=== PATIENT | female | born 1980 | race Caucasian/White ===

== ENCOUNTER 2017-01-14 09:52 | Emergency (ER) | payer OTHER ==
[~2017-01-14] VITALS: Ht 162.6 cm; Wt 66.5 kg
[~2017-01-14 09:52] MED LIST: IBUP-103 PO; PSEU120T21 PO
[2017-01-14 09:54] VITALS: TEMP 37.1; Ht 162.6 cm; Wt 66.5 kg
[2017-01-14] MEDS ORDERED: CYCL10TA6 PO (10:53)
--- NOTE | 2017-01-14 10:53 | EMERGENCY ROOM VISIT NOTE ---
ED Visit Note First contact with patient: 10:01 CHIEF COMPLAINT: Low back pain 2-3 days HISTORY OF PRESENT ILLNESS: Patient is a 36-year-old white female who presents emergency department for evaluation of progressively worsening low back pain 2- 3 days. She has been sleeping on an air mattress at a friend's house, she states that the air mattress deflates overnight and the other evening she ended up sleeping on the floor. She states that when she woke up her back was stiff and sore and it has progressively worsened over the last 2-3 days. She notes pain across her entire low back. It wraps around to her hips slightly. It is worse with walking and sitting upright. She has tried stretching, ibuprofen and massage last evening, which did help. There is no radiation of the pain into the buttocks or the legs. No numbness, tickling or weakness. No bowel or bladder incontinence. She rates her pain a 7/10. She does not have a prior history of back problems. REVIEW OF SYSTEMS: Review of systems as per HPI. All other systems reviewed were negative. At least 6 systems reviewed. PMH: Electronic medical records are reviewed and summarized as above/below. See Problem List. SOCIAL HISTORY: Patient lives at home. Smoker. PHYSICAL EXAM: Vital Signs: Reviewed Nurse's notes. MENTAL STATUS: Well-appearing 36-year-old white female who is awake and alert and in no acute distress. There is slight discomfort with position changes. CARDIOVASCULAR: Regular rate and rhythm, with normal S1 and S2, no murmur or gallop or rub is heard. No carotid bruits auscultated. No JVD. Peripheral pulses easily palpable. RESPIRATORY: Breath sounds equal and clear to auscultation without wheezes, rales, or rhonchi heard. Full and equal chest expansion without accessory muscle use or retractions. ABDOMEN: Bowel sounds are present. Abdomen is soft, nontender and nondistended. INTEGUMENTARY: No lesions or rash, normal skin turgor. LYMPH: No lymphadenopathy. SPINE: Examination of the patient's back does not demonstrate any ecchymosis, abrasions or outward signs of trauma. No erythema, increased warmth or induration. Patient has slight midline discomfort to palpation over the low lumbar spine, increased pain in the paraspinous musculature. There is no pain over the SI joint or the sciatic notch. She has discomfort with flexion, no pain with rotation and lateral bending. EXTREMITIES: Leg lengths are symmetrical. Negative logroll bilaterally. Normal strength including dorsi-flexion and plantar flexion of the great toes and ankles and flexion and extension of the knees and flexion of the hips. Negative bilateral straight leg raise testing. Lower extremity DTRs are equal and symmetrical bilaterally. Distal pulses are easily palpable. Sensation light touch is intact over the lower extremities bilaterally. EMERGENCY DEPARTMENT COURSE: The patient was seen and assessed as above. Old records are reviewed. She presents emergency department with localized low back pain. She does not provide a history of trauma to suspect fracture and therefore radiographs are not felt to be indicated. Continued conservative care measures were discussed. She was advised to continue the ibuprofen, heat, massage and was given a prescription for Flexeril. MEDICAL DECISION MAKING: I do not suspect acute compression syndrome, cauda equina, diskitis, epidural abscess, hematoma or neurovascular compromise. Problem List Medical Problems: (1) Acetaminophen overdose Permanent Comment: 2001 Status: Resolved (2) Depression Status: Chronic (3) Drug overdose Status: Resolved (4) Pain of right heel Status: Resolved (5) s/p Status: Resolved (6) Tobacco user Status: Chronic Current/Historical Medications Scheduled PRN Cyclobenzaprine Hcl (Flexeril), 10 MG PO TID PRN for Muscle Spasms Allergies Coded Allergies: No Known Allergies (Unverified , 02/15/14) Vital Signs Date Time Temp Pulse Resp B/P Pulse Ox O2 Delivery O2 Flow Rate FiO2 01/14/17 11:10 62 16 123/75 97 01/14/17 09:54 37.1 68 16 106/68 97 Room Air Departure Information Impression Primary Impression: Low back pain Prescriptions Cyclobenzaprine Hcl (FLEXERIL) 10 Mg Tab 10 MG PO TID Y for Muscle Spasms, #20 TAB Prov: Magdalena John PA 01/14/17 Referrals No Doctor, Assigned (PCP) Patient Instructions My [facility] Additional Instructions Cyclobenzaprine (Flexeril) 10 mg: Take 1 pills 3 times daily as needed for muscle spasms.. Avoid alcohol, operating machinery or dangerous equipment, working on ladders or roofs, DRIVING, or situations where being under the influence may be dangerous. Ibuprofen(Motrin, Advil) may be used for fever or pain. Use 600mg every six hours as needed. Take with food. Avoid using more than 2400mg in a 24 hour period. Do not use 2400mg per day for more than three consecutive days without physician direction. Prolonged inappropriate use can lead to stomach upset or ulcers. This medication can be taken if you need to drive, work, or perform activities which may be dangerous when taking narcotic pain medication. (AND/OR) Acetaminophen(Tylenol) may be used for fever or pain. Use 1000mg every six hours as needed. Avoid using more than 3000mg in a 24 hour period. This medication can be taken if you need to drive, work, or perform activities which may be dangerous when taking narcotic pain medication. Rest and avoid heavy lifting until your symptoms resolve and then gradually return to full activity. A good rule of thumb is if it hurts your back to perform a certain activity, then it should be avoided until you are healthy again. A heating pad, warm compresses, or a hot shower may help with tight muscles and can be done several times a day as needed. Gentle stretching and range of motion exercises to help reduce stiffness and spasm. Continue current medications. Return to the ER immediately for any numbness, tingling, severe pain, loss of control of your bowels or bladder, inability to walk, or as needed. Follow up with your primary care physician within 3-5 days for a recheck of your current condition.
[2017-01-14 11:10] VITALS: BP 123/75; PULSE 62; O2SAT 97
== END 2017-01-14 11:11 | disposition home or self-care (01) ==
LOC: C.EDB 09:53 → C.EDC 11:11
DX: M54.5 Low back pain (principal); F17.200 Nicotine dependence, unspecified, uncomplicated

== ENCOUNTER → 2017-03-08 | Outpatient (CLI) | payer OTHER ==
[~2017-03-08] MED LIST changes: +CEPH500C PO; +DXY100 PO; +ESCI1TAB6 PO; -IBUP-103 PO; +METR-163 PO; +ONDA4TAB10 SL; +OXYC-57 PO; +OXYC1TAB3 PO; -PSEU120T21 PO; +TAMS0.4C38 PO
[2017-03-08 13:08] LABS: BASO % 0.5 %; BASO ABS # 0.04 K/uL (0-0.2); COMPLETE YES; EOS % 1.5 %; HEMATOCRIT 42.8 % (37-47); IG% 0.1 %; LYMPH % 25.6 %; MEAN CELL VOLUME 100.5 fL (80-100); MEAN CORPUSCULAR HEMOGLOBIN 32.9 pg (25-34); MEAN CORPUSCULAR HGB CONC 32.7 g/dl (32-36); MONO % 6.9 %; NEUT % 65.4 %; PLATELET COUNT 315 K/uL (130-400); RED BLOOD COUNT 4.26 M/uL (4.2-5.4); WHITE BLOOD COUNT 7.82 K/uL (4.8-10.8)
[2017-03-08 13:27] LABS: BLOOD UREA NITROGEN 13 mg/dl (7-18); BUN/CREATININE RATIO 20.5 (10-20); CARBON DIOXIDE 29 mmol/L (21-32); CHLORIDE 108 mmol/L (98-107); CREATININE 0.63 mg/dl (0.60-1.20); GLUCOSE 112 mg/dl (70-99); POTASSIUM 3.5 mmol/L (3.5-5.1); SODIUM 140 mmol/L (136-145)
[2017-03-08 13:30] LABS: ALKALINE PHOSPHATASE 76 U/L (45-117); ALT/SGPT 21 U/L (12-78); AST/SGOT 13 U/L (15-37)
[2017-03-08 13:31] LABS: BENZODIAZEPINE, URINE NEG (NEG); COCAINE,URINE NEG (NEG); PHENCYCLIDINE, URINE NEG (NEG)
[2017-03-08 13:49] LABS: CALCIUM 8.5 mg/dl (8.5-10.1)
== END | disposition home or self-care (01) ==
LOC: C.CPL 12:27
PROVIDERS: ATTEND Psychiatry & Neurology Psychiatry
DX: F31.9 Bipolar disorder, unspecified (principal)

== ENCOUNTER → 2017-04-21 | Outpatient (CLI) | payer OTHER ==
[2017-04-21 15:47] LABS: BASO % 0.6 %; BASO ABS # 0.04 K/uL (0-0.2); COMPLETE YES; EOS % 1.6 %; HEMATOCRIT 42.8 % (37-47); IG% 0.1 %; LYMPH % 32.7 %; MEAN CELL VOLUME 99.3 fL (80-100); MEAN CORPUSCULAR HEMOGLOBIN 30.6 pg (25-34); MEAN CORPUSCULAR HGB CONC 30.8 g/dl (32-36); MEAN PLATELET VOLUME 9.1 fL (7.4-10.4); MONO % 7.4 %; NEUT % 57.6 %; PLATELET COUNT 365 K/uL (130-400); RED BLOOD COUNT 4.31 M/uL (4.2-5.4); WHITE BLOOD COUNT 7.03 K/uL (4.8-10.8)
[2017-04-21 16:39] LABS: CHLORIDE 108 mmol/L (98-107); POTASSIUM 3.7 mmol/L (3.5-5.1); SODIUM 140 mmol/L (136-145)
[2017-04-21 16:49] LABS: CALCIUM 8.6 mg/dl (8.5-10.1); CREATININE 0.83 mg/dl (0.60-1.20); GLUCOSE 158 mg/dl (70-99)
[2017-04-21 16:50] LABS: AST/SGOT 13 U/L (15-37)
[2017-04-21 17:02] LABS: BENZODIAZEPINE, URINE NEG (NEG); COCAINE,URINE NEG (NEG); PHENCYCLIDINE, URINE POS (NEG)
[2017-04-21 17:31] LABS: ALB/GLOB RATIO 1.1 (0.9-2); BLOOD UREA NITROGEN 12 mg/dl (7-18); BUN/CREATININE RATIO 14.2 (10-20); CARBON DIOXIDE 27 mmol/L (21-32)
[2017-04-21 17:39] LABS: ALKALINE PHOSPHATASE 74 U/L (45-117); ALT/SGPT 22 U/L (12-78)
[2017-04-26 10:33] LABS: COD UR NEGATIVE NG/ML (CUTOFF=50); HYDROCOD UR NEGATIVE NG/ML (CUTOFF=50); HYDROMOR UR NEGATIVE NG/ML (CUTOFF=50); MORPHINE UR NEGATIVE NG/ML (CUTOFF=50); NORHYDROCODONE CONF UR NEGATIVE NG/ML (CUTOFF=50); OXYMORPH UR NEGATIVE NG/ML (CUTOFF=50); PHENCYCLIDINE GC/MS NEGATIVE NG/ML (CUTOFF=25)
== END | disposition home or self-care (01) ==
LOC: C.LAB 14:12
PROVIDERS: ATTEND Psychiatry & Neurology Psychiatry
DX: F32.9 Major depressive disorder, single episode, unspecified (principal)

== ENCOUNTER 2017-05-23 13:06 | Emergency (ER) | payer OTHER ==
[~2017-05-23] VITALS: Ht 162.6 cm; Wt 67.0 kg
[2017-05-23 13:07] VITALS: BP 113/73; PULSE 91; TEMP 36.7; O2SAT 99; Ht 162.6 cm; Wt 67.0 kg
[2017-05-23] MEDS ORDERED: ESCI1TAB6 PO (13:13)
[2017-05-23] MEDS ORDERED: CEPH500C PO (13:22)
--- NOTE | 2017-05-23 13:25 | EMERGENCY ROOM VISIT NOTE ---
ED Visit Note First contact with patient: 13:10 CHIEF COMPLAINT: Skin rash HISTORY OF PRESENT ILLNESS: This 36-year-old female patient presents to the emergency department and states they have had swelling and redness and a rash 1 -1/2 weeks. The patient states she was exposed to poison karlee approximately one half weeks ago. She states the rash seems to be worsening over the past 2-3 days. She reports initial itchiness, which was successfully treated with calamine lotion and another OTC poison karlee cream. The patient states now the itchiness has improved, however she is experiencing increasing pain behind her right knee and on her right buttock where the lesions were. The patient states she had been scratching at these lesions, and also feels that she may have had bug bites in the same areas. The patient reports increased redness and warmth, and some minimal drainage. No fever and no URI symptoms. No shortness of breath. No involvement of the mouth, ears, nose, or eyes. REVIEW OF SYSTEMS: A 6 system review of systems was completed with positives and pertinent negatives listed in the HPI. ALLERGIES: None MEDICATIONS: Lexapro, Wellbutrin, trazodone PMH: Anxiety, depression, bipolar disorder SOCIAL HISTORY: The patient lives locally with family. She denies drug, alcohol , tobacco use. PHYSICAL EXAM: Vital Signs: See nurses' notes, vital signs stable. GENERAL: This is a 36-year-old female, in no acute distress, well developed, well nourished. SKIN: There are several linear patches of erythematous lesions on the posterior knees and right buttock, no vesicles at this time. Lesions are red and warm, and are draining some purulent fluid. This Is beginning to form over lesions. The lips, throat, nose, ears, and eyeballs are not involved. No signs of infection. There is no respiratory distress or cough. ED COURSE: She was seen and evaluated as above. I do feel that the lesions are starting to get infected due to the patient's scratching. I do recommend an antibiotic at this time due to her symptoms and examination. DIFFERENTIAL DIAGNOSIS: Cellulitis, Poison Karlee, Poison [place], dermatitis, and others. DIAGNOSIS: Rheus dermatitis DISCHARGE INSTRUCTIONS & TREATMENT: You were prescribed Keflex to be taken 4 times daily. This is an antibiotic. All antibiotics have the potential to cause diarrhea. Stop this medication and contact a medical provider if you were to develop any significant adverse side effects including: wheezing, shortness of breath, passing out, vomiting, or a diffuse rash. Always take antibiotics as directed and COMPLETE the ENTIRE course regardless of the improvement of your symptoms. You may continue to use OTC calamine lotion and poison karlee cream. You may want to consider OTC hydrocortisone cream for itchiness. Ibuprofen(Motrin, Advil) may be used for fever or pain. Use 600mg every six hours as needed. Take with food. Avoid using more than 2400mg in a 24 hour period. Do not use 2400mg per day for more than three consecutive days without physician direction. Prolonged inappropriate use can lead to stomach upset or ulcers. (AND/OR) Acetaminophen(Tylenol) may be used for fever or pain. Use 1000mg every six to eight hours as needed. Avoid using more than 3000mg in a 24 hour period. Please follow-up with your primary care provider in 2-3 days for recheck of the wounds. Please return to the emergency department for worsening rash, itchiness, purulent drainage, fever, chills, nausea, vomiting, body aches, or other concerning symptoms. Problem List Medical Problems: (1) Acetaminophen overdose Permanent Comment: 2002 Status: Resolved (2) Depression Status: Chronic (3) Drug overdose Status: Resolved (4) Pain of right heel Status: Resolved (5) s/p Status: Resolved (6) Tobacco user Status: Chronic Current/Historical Medications Scheduled Cephalexin Monohydrate (Keflex), 500 MG PO QID Escitalopram Oxalate (Lexapro), Unknown Dose PO DAILY Allergies Coded Allergies: No Known Allergies (Unverified , 02/15/14) Vital Signs Date Time Temp Pulse Resp B/P (MAP) Pulse Ox O2 Delivery O2 Flow Rate FiO2 05/23/17 13:07 36.7 91 16 113/73 99 Departure Information Impression Primary Impression: Poison karlee dermatitis Additional Impression: Cellulitis Dispostion Home / Self-Care Condition GOOD Prescriptions Cephalexin Monohydrate (Keflex) 500 Mg Cap 500 MG PO QID for 7 Days, #28 CAP Prov: Mena Garsia PA-C 05/23/17 Referrals Gauri Manriquez M.D. (PCP) Patient Instructions ED Dermatitis Poison Karlee, ED Infec Skin Cellulitis, [facility] Additional Instructions You were prescribed Keflex to be taken 4 times daily. This is an antibiotic. All antibiotics have the potential to cause diarrhea. Stop this medication and contact a medical provider if you were to develop any significant adverse side effects including: wheezing, shortness of breath, passing out, vomiting, or a diffuse rash. Always take antibiotics as directed and COMPLETE the ENTIRE course regardless of the improvement of your symptoms. You may continue to use OTC calamine lotion and poison karlee cream. You may want to consider OTC hydrocortisone cream for itchiness. Ibuprofen(Motrin, Advil) may be used for fever or pain. Use 600mg every six hours as needed. Take with food. Avoid using more than 2400mg in a 24 hour period. Do not use 2400mg per day for more than three consecutive days without physician direction. Prolonged inappropriate use can lead to stomach upset or ulcers. (AND/OR) Acetaminophen(Tylenol) may be used for fever or pain. Use 1000mg every six to eight hours as needed. Avoid using more than 3000mg in a 24 hour period. Please follow-up with your primary care provider in 2-3 days for recheck of the wounds. Please return to the emergency department for worsening rash, itchiness, purulent drainage, fever, chills, nausea, vomiting, body aches, or other concerning symptoms. Problem Qualifiers Additional Impression: Cellulitis Site of cellulitis: extremity Site of cellulitis of extremity: lower extremity Laterality: right Qualified Codes: L03.115 - Cellulitis of right lower limb
== END 2017-05-23 13:32 | disposition home or self-care (01) ==
LOC: C.EDB 13:07 → C.EDD 13:32
DX: L23.7 Allergic contact dermatitis due to plants, except food (principal); L03.115 Cellulitis of right lower limb; F41.9 Anxiety disorder, unspecified; F32.9 Major depressive disorder, single episode, unspecified; F31.9 Bipolar disorder, unspecified

== ENCOUNTER 2017-06-07 11:45 | Emergency (ER) | payer OTHER ==
[~2017-06-07] VITALS: Ht 162.6 cm; Wt 66.2 kg
[~2017-06-07 11:45] MED LIST changes: -CEPH500C PO; -DXY100 PO; -METR-163 PO; -ONDA4TAB10 SL; -OXYC-57 PO; -OXYC1TAB3 PO; -TAMS0.4C38 PO
[2017-06-07 11:56] VITALS: TEMP 36.8; Ht 162.6 cm; Wt 66.2 kg
[2017-06-07] MEDS ORDERED: IBUPROFEN 800 MG TAB PO STA (12:14)
[2017-06-07] MEDS ORDERED: ACETAMINOPHEN 500 MG TAB PO STA (12:14)
--- NOTE | 2017-06-07 12:25 | EMERGENCY ROOM VISIT NOTE ---
History Report prepared by Hussain: Jessica Mars Under the Supervision of: Dr. Neo Nuñez M.D. First contact with patient: 12:00 Chief Complaint: OTHER COMPLAINT Stated Complaint: MENSTRUAL CRAMPS - POISON ADRIAN - COUGHING - ACHES History of Present Illness The patient is a 36 year old white female who presents to the Emergency Room with complaints of persistent lower abdominal cramping that began prior to arrival. She rates her pain as a 7/10 in severity describing her pain as an aching. The patient reports that she has a Mirena ring. She states that she has had green vaginal discharge and vaginal bleeding. The patient denies any active medical problems or change in sexual partners. She denies being on any daily medications. The patient reports a history of a section. She states that she is a smoker and an occasional drinker. The patient states her pain wraps around to her back. She denies any history of kidney stones. The patient reports normal bowel movements and urination. She additionally reports poison adrian to her bilateral legs that she took antibiotics for last week. Source of History: patient Onset: prior to arrival Position: abdomen (lower) Symptom Intensity: 7/10 Quality: ache, cramping Timing: other (persistent) Note: Associated Symptoms: green vaginal discharge. Review of Systems See HPI for pertinent positives and negatives. A total of ten systems were reviewed and were otherwise negative. Past Medical & Surgical Medical Problems: (1) Acetaminophen overdose (2) Depression (3) Drug overdose (4) Pain of right heel (5) s/p (6) Tobacco user Family History Diabetes mellitus FHx: cancer Heart disease Hypertension Social History Smoking Status: Current Every Day Smoker Alcohol Use: none, occasionally Drug Use: heroin Marital Status: single, in relationship Housing Status: lives alone Occupation Status: unemployed Current/Historical Medications Scheduled Doxycycline Hyclate (Doxycycline Hyclate), 1 TAB PO BID Metronidazole (Flagyl), 500 MG PO BID Ondasetron Odt (Zofran Odt), 4 MG SL Q6H Allergies Coded Allergies: No Known Allergies (Unverified , 02/15/14) Physical Exam Vital Signs Date Time Temp Pulse Resp B/P (MAP) Pulse Ox O2 Delivery O2 Flow Rate FiO2 06/07/17 14:08 87 16 122/80 98 06/07/17 12:27 86 06/07/17 11:56 36.8 83 18 122/81 94 Room Air Physical Exam GENERAL: Awake, alert, well-appearing, NAD HENT: Normocephalic, atraumatic. EYES: Normal conjunctiva. Sclera non-icteric. NECK: Supple. No nuchal rigidity. FROM. RESPIRATORY: CTAB, no rhonchi, wheezing, crackles CARDIAC: RRR, no MRG ABDOMEN: Soft, mild lower abdominal tenderness, no guarding or rebound, negative obturator sign and psoas, negative Franklin's, BS+ PELVIC: scant blood in the vaginal blood coming from the cervical os, os is closed, no irritation, scant thick white discharge, no CMT, no adnexal tenderness bilaterally. MSK: No chest wall TTP, no LE edema NEURO: GCS 15, CN 2-12 intact, moves all 4s on command SKIN: Several healing scars over the lower extremities that are different in size. Mild redness, no warmth. More consistent with healing wounds, no cellulitis or fluctuance. No jaundice noted. Medical Decision & Procedures Laboratory Results 06/07/17 12:20 Red Blood Count 4.08, Mean Corpuscular Volume 99.0, Mean Corpuscular Hemoglobin 32.4, Mean Corpuscular Hemoglobin Concent 32.7, Mean Platelet Volume 8.6, Neutrophils (%) (Auto) 68.3, Lymphocytes (%) (Auto) 23.7, Monocytes (%) (Auto) 5.3, Eosinophils (%) (Auto) 1.7, Basophils (%) (Auto) 0.6, Neutrophils # (Auto) 4.75, Lymphocytes # (Auto) 1.65, Monocytes # (Auto) 0.37, Eosinophils # (Auto) 0.12, Basophils # (Auto) 0.04 06/07/17 12:20 Test 06/07/17 12:19 06/07/17 12:20 06/07/17 12:55 Urine Color YELLOW Urine Appearance CLEAR (CLEAR) Urine pH 5.0 (4.5-7.5) Urine Specific [place] 1.019 (1.000-1.030) Urine Protein NEG (NEG) Urine Glucose (UA) NEG (NEG) Urine Ketones NEG (NEG) Urine Occult Blood 2+ (NEG) Urine Nitrite NEG (NEG) Urine Bilirubin NEG (NEG) Urine Urobilinogen NEG (NEG) Urine Leukocyte Esterase NEG (NEG) Urine WBC (Auto) 1-5 /hpf (0-5) Urine RBC (Auto) 10-30 /hpf (0-4) Urine Hyaline Casts (Auto) 1-5 /lpf (0-5) Urine Epithelial Cells (Auto) >30 /lpf (0-5) Urine Bacteria (Auto) NEG (NEG) Urine Test NEG (NEG) White Blood Count 6.96 K/uL (4.8-10.8) Red Blood Count 4.08 M/uL (4.2-5.4) Hemoglobin 13.2 g/dL (12.0-16.0) Hematocrit 40.4 % (37-47) Mean Corpuscular Volume 99.0 fL (80-100) Mean Corpuscular Hemoglobin 32.4 pg (25-34) Mean Corpuscular Hemoglobin Concent 32.7 g/dl (32-36) Platelet Count 335 K/uL (130-400) Mean Platelet Volume 8.6 fL (7.4-10.4) Neutrophils (%) (Auto) 68.3 % Lymphocytes (%) (Auto) 23.7 % Monocytes (%) (Auto) 5.3 % Eosinophils (%) (Auto) 1.7 % Basophils (%) (Auto) 0.6 % Neutrophils # (Auto) 4.75 K/uL (1.4-6.5) Lymphocytes # (Auto) 1.65 K/uL (1.2-3.4) Monocytes # (Auto) 0.37 K/uL (0.11-0.59) Eosinophils # (Auto) 0.12 K/uL (0-0.5) Basophils # (Auto) 0.04 K/uL (0-0.2) RDW Standard Deviation 49.8 fL (36.4-46.3) RDW Coefficient of Variation 13.9 % (11.5-14.5) Immature Granulocyte % (Auto) 0.4 % Immature Granulocyte # (Auto) 0.03 K/uL (0.00-0.02) Anion Gap -1.0 mmol/L (3-11) Est Creatinine Clear Calc Drug Dose 81.8 ml/min Estimated GFR () 96.6 Estimated GFR (Non- 83.4 BUN/Creatinine Ratio 12.8 (10-20) Calcium Level 8.7 mg/dl (8.5-10.1) Total Bilirubin 0.4 mg/dl (0.2-1) Aspartate Amino Transf (AST/SGOT) 14 U/L (15-37) Alanine Aminotransferase (ALT/SGPT) 22 U/L (12-78) Alkaline Phosphatase 66 U/L (45-117) Total Protein 7.0 gm/dl (6.4-8.2) Albumin 3.4 gm/dl (3.4-5.0) Globulin 3.6 gm/dl (2.5-4.0) Albumin/Globulin Ratio 0.9 (0.9-2) Laboratory results reviewed by me Medications Administered Medications (Trade) Dose Ordered Sig/Jonnathan Route Start Time Stop Time Status Last Admin Dose Admin Ibuprofen (Motrin Tab) 800 mg NOW STAT PO 06/07/17 12:14 06/07/17 12:15 DC 06/07/17 12:22 800 MG Acetaminophen (Tylenol Tab) 1,000 mg NOW STAT PO 06/07/17 12:14 06/07/17 12:16 DC 06/07/17 12:24 1,000 MG Ceftriaxone Sodium (Rocephin Im) 250 mg NOW ONCE IM 06/07/17 13:45 06/07/17 13:46 DC 06/07/17 14:07 250 MG Metronidazole (Flagyl Tab) 500 mg NOW STAT PO 06/07/17 13:36 06/07/17 13:38 DC 06/07/17 14:05 500 MG Doxycycline Hyclate (Vibramycin Cap) 100 mg NOW STAT PO 06/07/17 13:36 06/07/17 13:38 DC 06/07/17 14:05 100 MG Ondansetron HCl (Zofran Odt) 4 mg NOW STAT PO 06/07/17 13:36 06/07/17 13:38 DC 06/07/17 13:56 4 MG ED Course 1205: The patient was evaluated in room C1B. A complete history and physical exam was performed. 1254: I performed the pelvic exam at this time. See physical exam for further detail. 1410: I reevaluated the patient and she is doing well. I discussed the exam findings with her and I discussed the treatment plan. She verbalized complete understanding and agreement. She is ready to go home and follow up with erp business analyst. Medical Decision Triage Nursing notes reviewed. The patient's presentation and history were concerning for UTI, PID, infected Mirena, TOA. The patient is a 36 year old white female who presents to the Emergency Room with complaints of persistent lower abdominal cramping that began prior to arrival. Patient was evaluated blood work as well as a urine sample. Patient UA negative for infection was blindness consistent with being on her menstrual period. Patient's UPT was negative. Patient's H&H are normal. Upon pelvic exam patient did have scant blood coming from the os as well as very scant colored thick discharge. Patient did not have any CMT or adnexal tenderness. Patient's IUD was not placed recently however given the new symptom of discharge and she has not had before and she is to empirically treat for potential PID even though she doesn't have CMT tenderness or an elevated white count. This is more precautionary. The patient will follow up with her [facility] and given referral as well. Patient was also told that she is not supposed to drink on taking Flagyl. Patient was given strict follow-up, discharge, and return percussions. Patient agreed with plan of care was discharged home. Medication Reconcilliation Current Medication List: was personally reviewed by me Blood Pressure Screening Patient's blood pressure: Normal blood pressure Blood pressure disposition: Did not require urgent referral Impression Primary Impression: PID (pelvic inflammatory disease) Additional Impression: Vaginal bleeding Scribe Attestation The scribe's documentation has been prepared under my direction and personally reviewed by me in its entirety. I confirm that the note above accurately reflects all work, treatment, procedures, and medical decision making performed by me. Departure Information Dispostion Home / Self-Care Prescriptions Ondasetron Odt (ZOFRAN ODT) 4 Mg Tab 4 MG SL Q6H for Nausea, #6 TAB Prov: Neo Nuñez M.D. 06/07/17 Metronidazole (Flagyl) 500 Mg Tab 500 MG PO BID for 14 Days, #28 TAB Prov: Neo Nuñez M.D. 06/07/17 Doxycycline Hyclate (Doxycycline Hyclate) 100 Mg Cap 1 TAB PO BID for 14 Days, #28 TAB Prov: Neo Nuñez M.D. 06/07/17 Referrals No Doctor, Assigned (PCP) Forms HOME CARE DOCUMENTATION FORM, IMPORTANT VISIT INFORMATION, WORK / SCHOOL INSTRUCTIONS Patient Instructions ED PID, Metronidazole tablets or capsules, [facility], PID Tx Meds Additional Instructions Please return to the emergency department if you have worsening or recurrent symptoms not amenable to at-home treatment. Please call for a follow-up appointment with her primary care physician. Please take your medications as prescribed. If you have other concerns and/or complaints please feel free to also call your primary care physician's office or return the ED for further evaluation, management, and treatment. Please follow-up with your [facility]. Please also avoid taking alcohol while taking metronidazole. Problem Qualifiers
[2017-06-07 12:33] LABS: BASO % 0.6 %; BASO ABS # 0.04 K/uL (0-0.2); COMPLETE YES; EOS % 1.7 %; HEMATOCRIT 40.4 % (37-47); IG% 0.4 %; LYMPH % 23.7 %; LYMPH ABS # 1.65 K/uL (1.2-3.4); MEAN CORPUSCULAR HEMOGLOBIN 32.4 pg (25-34); MEAN CORPUSCULAR HGB CONC 32.7 g/dl (32-36); MEAN PLATELET VOLUME 8.6 fL (7.4-10.4); MONO % 5.3 %; NEUT % 68.3 %; PLATELET COUNT 335 K/uL (130-400); RED BLOOD COUNT 4.08 M/uL (4.2-5.4); WHITE BLOOD COUNT 6.96 K/uL (4.8-10.8)
[2017-06-07 12:53] LABS: URINE APPEARANCE CLEAR (CLEAR); URINE BILIRUBIN NEG (NEG); URINE COLOR YELLOW; URINE EPITHELIAL CELL AUTO >30 /lpf (0-5); URINE NITRITE NEG (NEG); URINE SPECIFIC GRAVITY 1.019 (1.000-1.030); UROBILINOGEN NEG (NEG)
[2017-06-07 12:57] LABS: BUN/CREATININE RATIO 12.8 (10-20); CALCIUM 8.7 mg/dl (8.5-10.1); CREATININE 0.89 mg/dl (0.60-1.20); POTASSIUM 3.8 mmol/L (3.5-5.1)
[2017-06-07 12:59] LABS: ALB/GLOB RATIO 0.9 (0.9-2)
[2017-06-07 13:04] LABS: MANUAL MICROSCOPIC REQUIRED? NO; REVIEW REQ? NO
[2017-06-07] MEDS ORDERED: ONDANSETRON 4MG OD TAB PO STA (13:36)
[2017-06-07] MEDS ORDERED: METRONIDAZOLE 250 MG TAB PO STA (13:36)
[2017-06-07] MEDS ORDERED: DOXYCYCLINE HYCLATE 100 MG CAP PO STA (13:36)
[2017-06-07] MEDS ORDERED: CEFTRIAXONE SOD 350MG/ML 1 GM VIAL IM ONE (13:45)
[2017-06-07 14:08] VITALS: BP 122/80; PULSE 87; O2SAT 98
[2017-06-07] MEDS ORDERED: DXY100 PO (14:20)
[2017-06-07] MEDS ORDERED: METR-163 PO (14:20)
[2017-06-07] MEDS ORDERED: ONDA4TAB10 SL (14:20)
[2017-06-10 01:22] LABS: CHLAMYDIA TRACH RNA*** NOT DETECTED (NOT DETECTED); GC (NEIS GONORRHOEAE)RNA** NOT DETECTED (NOT DETECTED)
== END 2017-06-07 14:40 | disposition home or self-care (01) ==
LOC: C.EDB 11:46 → C.EDC 14:40
DX: N73.9 Female pelvic inflammatory disease, unspecified (principal); N93.9 Abnormal uterine and vaginal bleeding, unspecified; F32.9 Major depressive disorder, single episode, unspecified; F17.210 Nicotine dependence, cigarettes, uncomplicated; Z83.3 Family history of diabetes mellitus; Z80.9 Family history of malignant neoplasm, unspecified; Z82.49 Family history of ischemic heart disease and other diseases of the circulatory system

== ENCOUNTER 2017-06-10 20:21 | Emergency (ER) | payer OTHER ==
[~2017-06-10] VITALS: Ht 162.6 cm; Wt 67.4 kg
[~2017-06-10 20:21] MED LIST changes: +DXY100 PO; -ESCI1TAB6 PO; +METR-163 PO; +ONDA4TAB10 SL
[2017-06-10 20:23] VITALS: TEMP 36.3; Ht 162.6 cm; Wt 67.4 kg
[2017-06-10] MEDS ORDERED: SODIUM CHLORIDE 0.9% 1000ML 1,000 ML IV STA ×2 (20:37→21:46)
[2017-06-10] MEDS ORDERED: KETOROLAC TROMETHAMINE 30 MG/ML VIAL IV STA (20:37)
[2017-06-10] MEDS ORDERED: ONDANSETRON INJ 2 MG/ML 2 ML VIAL IV STA (20:37)
[2017-06-10] MEDS ORDERED: OPTIRAY 320 IV PRN (20:45)
[2017-06-10 21:01] LABS: ISTAT CREATININE 1.3 mg/dl (0.6-1.3); ISTAT HEMOGLOBIN 13.6 g/dl (12.0-16.0); ISTAT IONIZED CALCIUM 1.13 mmol/l (1.12-1.32)
[2017-06-10 21:05] LABS: BASO % 0.2 %; BASO ABS # 0.02 K/uL (0-0.2); COMPLETE YES; EOS % 0.1 %; IG% 0.3 %; LYMPH % 7.6 %; LYMPH ABS # 0.71 K/uL (1.2-3.4); MEAN CELL VOLUME 97.7 fL (80-100); MEAN CORPUSCULAR HEMOGLOBIN 33.2 pg (25-34); MEAN CORPUSCULAR HGB CONC 33.9 g/dl (32-36); MEAN PLATELET VOLUME 8.7 fL (7.4-10.4); MONO % 4.4 %; NEUT % 87.4 %; PLATELET COUNT 302 K/uL (130-400); RED BLOOD COUNT 3.89 M/uL (4.2-5.4); WHITE BLOOD COUNT 9.37 K/uL (4.8-10.8)
[2017-06-10 21:27] LABS: ALT/SGPT 22 U/L (12-78); BLOOD UREA NITROGEN 16 mg/dl (7-18); BUN/CREATININE RATIO 13.3 (10-20); CALCIUM 7.9 mg/dl (8.5-10.1); CARBON DIOXIDE 19 mmol/L (21-32); CHLORIDE 118 mmol/L (98-107); GLUCOSE 106 mg/dl (70-99); POTASSIUM 3.6 mmol/L (3.5-5.1); SODIUM 139 mmol/L (136-145)
--- NOTE | 2017-06-10 21:28 | DIAGNOSTIC IMAGING REPORT ---
CT SCAN OF THE ABDOMEN AND PELVIS WITH IV CONTRAST CLINICAL HISTORY: Right upper quadrant abdominal pain. COMPARISON STUDY: No priors. TECHNIQUE: Following the IV administration of 93 cc of Optiray 320, CT scan of the abdomen and pelvis is performed from the lung bases to the proximal femora. Images are reviewed in the axial, sagittal, and coronal planes. IV contrast was administered without complication. Automated dose control exposure was utilized. A dose lowering technique was utilized adhering to the principles of ALARA. CT DOSE: 271.77 mGy.cm FINDINGS: Lung bases: The heart is normal in size and without pericardial effusion. Small fat-containing [place] hernias are present at both lung bases. The lung bases are otherwise clear. Liver: The contrast-enhanced liver is normal in size, contour, and attenuation. There is no intrahepatic biliary ductal dilatation. The hepatic veins and portal veins are patent. Gallbladder: Unremarkable. Spleen: Normal in size and attenuation. Pancreas: Unremarkable. Adrenal glands: Unremarkable. Kidneys: The contrast enhanced kidneys are normal in size. There is a 5 mm obstructing calculus in the proximal right ureter at the level of L3 seen on axial image #143. This causes moderate right-sided hydronephrosis. There is associated right-sided perinephric stranding and fluid. No additional calculi are clearly identified in either kidney. There is no left-sided hydronephrosis. The right kidney appears edematous and demonstrates diminished perfusion as compared to the left. Abdominal vasculature: The abdominal aorta is normal in course and caliber. Bowel: The small bowel and colon are normal in course and caliber. There is moderate colonic fecal retention. The appendix is well-visualized and normal. Peritoneum: There is no intraperitoneal free air or abdominal ascites. Lymphadenopathy: None. Pelvic viscera: The uterus is normal in appearance noting an intrauterine device in place. There is a large heterogeneous calcified 5 lesion seen in the left adnexa on image #268. The calcification measures up to 4.0 cm and is likely related to the left ovary. Small follicles are noted in the right ovary. There is hyperdense material suggestive within the posterior right aspect of the bladder lumen on image #291. Skeletal structures: No lytic or blastic lesions are seen. IMPRESSION: 1. There is a 5 mm obstructing calculus in the right proximal ureter. This causes moderate right-sided hydronephrosis. 2. No additional calculi are clearly identified in either kidney. 3. The right kidney appears edematous, and demonstrates diminished perfusion as compared to the left. This is likely related to hydronephrosis and obstruction. Superimposed infection would be impossible to exclude and correlation with urinalysis will be required. 4. Moderate constipation. 5. There is a 4.0 cm densely calcified lesion identified in the left adnexa, likely related to the left ovary. The appearance is nonspecific and this could represent a teratoma/dermoid. A calcified fibroid is considered less likely but is the top differential consideration. Follow-up with a nonemergent pelvic ultrasound and gynecology assessment is recommended. 6. There is layering hyperdense material identified within the bladder lumen, greatest on the right. This may represent layering stones/debris or possibly blood products. Precautionary follow-up ultrasound of the bladder in several weeks time is recommended for reassessment and to document resolution. Electronically signed by: Ron Thomson M.D. 06/10/2017 9:27 PM Dictated Date/Time: 06/10/2017 9:17 PM
[2017-06-10 21:30] LABS: ALKALINE PHOSPHATASE 68 U/L (45-117); AST/SGOT 16 U/L (15-37)
[2017-06-10 21:57] LABS: MANUAL MICROSCOPIC REQUIRED? NO; REVIEW REQ? YES; URINE APPEARANCE TURBID (CLEAR); URINE BILIRUBIN NEG (NEG); URINE COLOR YELLOW; URINE EPITHELIAL CELL AUTO >30 /lpf (0-5); URINE NITRITE NEG (NEG); URINE SPECIFIC GRAVITY 1.034 (1.000-1.030); UROBILINOGEN NEG (NEG); ZZUR CULT IF INDIC CLEAN CATCH NO
[2017-06-10] MEDS ORDERED: TAMS0.4C38 PO (22:29)
[2017-06-10] MEDS ORDERED: OXYC1TAB3 PO (22:29)
[2017-06-10] MEDS ORDERED: FLUCONAZOLE 50 MG TAB PO ONE (22:30)
[2017-06-10] MEDS ORDERED: OXYCODONE IR HOME PACK PO ONE (22:45)
[2017-06-10 23:00] VITALS: BP 115/77; PULSE 93; O2SAT 100
--- NOTE | 2017-06-11 00:13 | EMERGENCY ROOM VISIT NOTE ---
History Report prepared by Hussain: Giuseppe Nichole Under the Supervision of: Dr. Benedict Rosado D.O. First contact with patient: 20:27 Chief Complaint: FLANK PAIN Stated Complaint: SHARP PERSISTANT STOMACH PAIN History of Present Illness The patient is a 36 year old female who presents to the Emergency Room with complaints of cramping RUQ abdominal pain that began 2 hours ago. She rates her pain an 8/10 in severity. This has never happened to the patient before. She is also experiencing nausea and vomiting as well. Her last bowel movement was earlier today and was normal. Nothing makes her pain better or worse. She was seen in the ED two days ago for poison cheryl on her bilateral lower extremities and lower abdominal pain. She was given antibiotics for PID. Pt denies headache , change in vision, fevers, chest pain, shortness of breath, diarrhea, pain with urination, melena, vaginal discharge, or vaginal bleeding. She has an IUD in place and does not get menstrual periods. She denies any other medical problems. Source of History: patient Onset: 2 hours ago Position: abdomen (RUQ) Symptom Intensity: 8/10 Quality: cramping Timing: constant Associated Symptoms: + nausea, + vomiting, No fevers, No headache, No chest pain, No SOB, No melena, No diarrhea, No urinary symptoms Review of Systems See HPI for pertinent positives & negatives. A total of 10 systems reviewed and were otherwise negative. Past Medical & Surgical Medical Problems: (1) Acetaminophen overdose (2) Depression (3) Drug overdose (4) Pain of right heel (5) s/p (6) Tobacco user Family History Diabetes mellitus FHx: cancer Heart disease Hypertension Social History Smoking Status: Current Every Day Smoker Alcohol Use: none, occasionally Drug Use: heroin Marital Status: single, in relationship Housing Status: lives alone Occupation Status: unemployed Current/Historical Medications Scheduled Metronidazole (Flagyl), 500 MG PO BID Ondasetron Odt (Zofran Odt), 4 MG SL Q6H Tamsulosin Hcl (Flomax), 0.4 MG PO DAILY Scheduled PRN Oxycodone Immediate Rel Tab (Roxicodone Ir), 5 MG PO Q6H PRN for Pain Allergies Coded Allergies: No Known Allergies (Unverified , 02/15/14) Physical Exam Vital Signs Date Time Temp Pulse Resp B/P (MAP) Pulse Ox O2 Delivery O2 Flow Rate FiO2 06/10/17 23:00 93 18 115/77 100 Room Air 06/10/17 21:13 77 16 112/75 98 Room Air 06/10/17 20:23 36.3 86 16 125/75 99 Room Air Physical Exam GENERAL: alert, disheveled appearing, well nourished, no distress, non-toxic, sitting up in bed. Seems to be tired. EYE EXAM: normal conjunctiva OROPHARYNX: no exudate, no erythema, lips, buccal mucosa, and tongue normal and mucous membranes are moist NECK: supple, no nuchal rigidity, no adenopathy, non-tender LUNGS: Clear to auscultation. Normal chest wall mechanics HEART: no murmurs, S1 normal and S2 normal ABDOMEN: abdomen soft, non-tender, normo-active bowel sounds, no masses, no rebound or guarding. BACK: Back is symmetrical on inspection and there is no deformity, no midline tenderness, no CVA tenderness. SKIN: no rashes and no bruising UPPER EXTREMITIES: upper extremities are grossly normal. LOWER EXTREMITIES: No pitting edema. NEURO EXAM: Normal sensorium, cranial nerves II-XII grossly intact, normal speech, no gross weakness of arms, no gross weakness of legs. Medical Decision & Procedures ER Provider Diagnostic Interpretation: Radiology results as stated below per my review and the radiologist's interpretation: CT SCAN OF THE ABDOMEN AND PELVIS WITH IV CONTRAST CLINICAL HISTORY: Right upper quadrant abdominal pain. COMPARISON STUDY: No priors. TECHNIQUE: Following the IV administration of 93 cc of Optiray 320, CT scan of the abdomen and pelvis is performed from the lung bases to the proximal femora. Images are reviewed in the axial, sagittal, and coronal planes. IV contrast was administered without complication. Automated dose control exposure was utilized. A dose lowering technique was utilized adhering to the principles of ALARA. CT DOSE: 271.77 mGy.cm FINDINGS: Lung bases: The heart is normal in size and without pericardial effusion. Small fat-containing [place] hernias are present at both lung bases. The lung bases are otherwise clear. Liver: The contrast-enhanced liver is normal in size, contour, and attenuation. There is no intrahepatic biliary ductal dilatation. The hepatic veins and portal veins are patent. Gallbladder: Unremarkable. Spleen: Normal in size and attenuation. Pancreas: Unremarkable. Adrenal glands: Unremarkable. Kidneys: The contrast enhanced kidneys are normal in size. There is a 5 mm obstructing calculus in the proximal right ureter at the level of L3 seen on axial image #143. This causes moderate right-sided hydronephrosis. There is associated right-sided perinephric stranding and fluid. No additional calculi are clearly identified in either kidney. There is no left-sided hydronephrosis. The right kidney appears edematous and demonstrates diminished perfusion as compared to the left. Abdominal vasculature: The abdominal aorta is normal in course and caliber. Bowel: The small bowel and colon are normal in course and caliber. There is moderate colonic fecal retention. The appendix is well-visualized and normal. Peritoneum: There is no intraperitoneal free air or abdominal ascites. Lymphadenopathy: None. Pelvic viscera: The uterus is normal in appearance noting an intrauterine device in place. There is a large heterogeneous calcified 5 lesion seen in the left adnexa on image #268. The calcification measures up to 4.0 cm and is likely related to the left ovary. Small follicles are noted in the right ovary. There is hyperdense material suggestive within the posterior right aspect of the bladder lumen on image #291. Skeletal structures: No lytic or blastic lesions are seen. IMPRESSION: 1. There is a 5 mm obstructing calculus in the right proximal ureter. This causes moderate right-sided hydronephrosis. 2. No additional calculi are clearly identified in either kidney. 3. The right kidney appears edematous, and demonstrates diminished perfusion as compared to the left. This is likely related to hydronephrosis and obstruction. Superimposed infection would be impossible to exclude and correlation with urinalysis will be required. 4. Moderate constipation. 5. There is a 4.0 cm densely calcified lesion identified in the left adnexa, likely related to the left ovary. The appearance is nonspecific and this could represent a teratoma/dermoid. A calcified fibroid is considered less likely but is the top differential consideration. Follow-up with a nonemergent pelvic ultrasound and gynecology assessment is recommended. 6. There is layering hyperdense material identified within the bladder lumen, greatest on the right. This may represent layering stones/debris or possibly blood products. Precautionary follow-up ultrasound of the bladder in several weeks time is recommended for reassessment and to document resolution. Electronically signed by: Ron Thomson M.D. 06/10/2017 9:27 PM Dictated Date/Time: 06/10/2017 9:17 PM Laboratory Results 06/10/17 21:00 Red Blood Count 3.89, Mean Corpuscular Volume 97.7, Mean Corpuscular Hemoglobin 33.2, Mean Corpuscular Hemoglobin Concent 33.9, Mean Platelet Volume 8.7, Neutrophils (%) (Auto) 87.4, Lymphocytes (%) (Auto) 7.6, Monocytes (%) (Auto) 4.4, Eosinophils (%) (Auto) 0.1, Basophils (%) (Auto) 0.2, Neutrophils # (Auto) 8.19, Lymphocytes # (Auto) 0.71, Monocytes # (Auto) 0.41, Eosinophils # (Auto) 0.01, Basophils # (Auto) 0.02 06/10/17 21:00 Test 06/10/17 20:48 06/10/17 21:00 06/10/17 21:35 Bedside Hemoglobin 13.6 g/dl (12.0-16.0) Bedside Hematocrit 40 % (37-47) Bedside Sodium 140 mEq/L (135-144) Bedside Potassium 3.6 mEq/L (3.3-5.0) Bedside Chloride 115 mEq/L (101-112) Bedside Total CO2 17 mEq/l (24-31) Bedside Blood Urea Nitrogen 16 mg/dl (7-18) Bedside Creatinine 1.3 mg/dl (0.6-1.3) Bedside Glucose (other) 100 mg/dl (70-99) Bedside Ionized Calcium ([place]) 1.13 mmol/l (1.12-1.32) White Blood Count 9.37 K/uL (4.8-10.8) Red Blood Count 3.89 M/uL (4.2-5.4) Hemoglobin 12.9 g/dL (12.0-16.0) Hematocrit 38.0 % (37-47) Mean Corpuscular Volume 97.7 fL (80-100) Mean Corpuscular Hemoglobin 33.2 pg (25-34) Mean Corpuscular Hemoglobin Concent 33.9 g/dl (32-36) Platelet Count 302 K/uL (130-400) Mean Platelet Volume 8.7 fL (7.4-10.4) Neutrophils (%) (Auto) 87.4 % Lymphocytes (%) (Auto) 7.6 % Monocytes (%) (Auto) 4.4 % Eosinophils (%) (Auto) 0.1 % Basophils (%) (Auto) 0.2 % Neutrophils # (Auto) 8.19 K/uL (1.4-6.5) Lymphocytes # (Auto) 0.71 K/uL (1.2-3.4) Monocytes # (Auto) 0.41 K/uL (0.11-0.59) Eosinophils # (Auto) 0.01 K/uL (0-0.5) Basophils # (Auto) 0.02 K/uL (0-0.2) RDW Standard Deviation 49.9 fL (36.4-46.3) RDW Coefficient of Variation 14.0 % (11.5-14.5) Immature Granulocyte % (Auto) 0.3 % Immature Granulocyte # (Auto) 0.03 K/uL (0.00-0.02) Anion Gap 2.0 mmol/L (3-11) Est Creatinine Clear Calc Drug Dose 61.2 ml/min Estimated GFR () 67.3 Estimated GFR (Non- 58.1 BUN/Creatinine Ratio 13.3 (10-20) Calcium Level 7.9 mg/dl (8.5-10.1) Total Bilirubin 0.9 mg/dl (0.2-1) Direct Bilirubin < 0.1 mg/dl (0-0.2) Aspartate Amino Transf (AST/SGOT) 16 U/L (15-37) Alanine Aminotransferase (ALT/SGPT) 22 U/L (12-78) Alkaline Phosphatase 68 U/L (45-117) Total Protein 7.1 gm/dl (6.4-8.2) Albumin 3.6 gm/dl (3.4-5.0) Lipase 126 U/L (73-393) Urine Color YELLOW Urine Appearance TURBID (CLEAR) Urine pH 5.0 (4.5-7.5) Urine Specific [place] 1.034 (1.000-1.030) Urine Protein 1+ (NEG) Urine Glucose (UA) NEG (NEG) Urine Ketones NEG (NEG) Urine Occult Blood 2+ (NEG) Urine Nitrite NEG (NEG) Urine Bilirubin NEG (NEG) Urine Urobilinogen NEG (NEG) Urine Leukocyte Esterase NEG (NEG) Urine WBC (Auto) 5-10 /hpf (0-5) Urine RBC (Auto) >30 /hpf (0-4) Urine Hyaline Casts (Auto) 1-5 /lpf (0-5) Urine Epithelial Cells (Auto) >30 /lpf (0-5) Urine Bacteria (Auto) NEG (NEG) Urine Renal Epithelial Cells 0-5 /lpf (0-5) Urine Crystals CALCIUM OXALATE (NONE Urine Pathogenic Casts /lpf (0) Urine Yeast (Auto) PRESENT (NONE PRSENT) Urine Test NEG (NEG) Laboratory results per my review. Medications Administered Medications (Trade) Dose Ordered Sig/Jonnathan Route Start Time Stop Time Status Last Admin Dose Admin Sodium Chloride 1,000 ml @ 999 mls/hr Q1H1M STAT IV 06/10/17 20:37 06/10/17 21:37 DC 06/10/17 20:53 999 MLS/HR Ondansetron HCl (Zofran Inj) 4 mg NOW STAT IV 06/10/17 20:37 06/10/17 20:39 DC 06/10/17 20:52 4 MG Ketorolac Tromethamine (Toradol Inj) 15 mg NOW STAT IV 06/10/17 20:37 06/10/17 20:39 DC 06/10/17 20:52 15 MG Sodium Chloride 1,000 ml @ 999 mls/hr Q1H1M STAT IV 06/10/17 21:46 06/10/17 22:46 DC 06/10/17 21:46 999 MLS/HR Fluconazole (Diflucan Tab) 150 mg NOW ONCE PO 06/10/17 22:30 06/10/17 22:31 DC 06/10/17 22:54 150 MG Oxycodone HCl (Roxicodone Immediate Rel 5MG Home Pack) 1 homepack UD ONCE PO 06/10/17 22:45 06/10/17 22:46 DC 06/10/17 22:54 1 HOMEPACK ED Course ED COURSE: Vital signs were reviewed and showed normal vitals. The patients medical record was reviewed The above diagnostic studies were performed and reviewed. ED treatments and interventions as stated above. 2026: The patient was evaluated in room A9B. A complete history and physical examination was performed. 2036: Ordered Toradol Inj 15 mg IV, Zofran Inj 4 mg IV, Sodium Chloride 1000 ml @ 999 mls/hr IV 2146: Ordered Sodium Chloride 1000 ml @ 999 mls/hr IV 2230: Ordered Diflucan Tab 150 mg PO 2233: The patient feels fine at this time. 2245: Ordered Oxycodone HCl 1 homepack PO 2250: Upon reevaluation, the patient is resting. I discussed my findings with the patient and she understands and agrees with the treatment plan. The patient remained stable while under my care. The patient appeared well at the time of discharge. Medical Decision Differential diagnoses includes but is not limited to gastritis, peptic ulcer disease, GERD, gallbladder disease, pancreatitis, small bowel obstruction, acute coronary syndrome, pericarditis, ischemic bowel, irritable bowel disease, irritable bowel syndrome, appendicitis, diverticulitis, malignancy, hernia, urinary tract infection, torsion, /ectopic , perforation, trauma, infectious. Patient is a 36-year-old female who presents the ER for right sided abdominal pain which she has difficulty localizing. Patient was fairly sleepy on exam. CBC was unremarkable. BMP shows a CO2 of 19.. LFTs, bilirubin and lipase was unremarkable. UA shows hematuria with yeast cells. Urine negative. CT of abdomen and pelvis shows a 5 mm obstructing stone in the right proximal ureter with moderate [place]. Patient was updated regards to findings. She does have a 4 cm dense calcification in the left adnexa which suggest a teratoma versus dermoid. Discussed with charge nurse at 12 AM as I noticed this following discharge. Requested them having the patient call tomorrow morning to have a follow-up with oncology within 1 week for ultrasound of the pelvis. Patient was given a dose Diflucan. She was discharged follow-up with PCP, urology, and [facility]. She was given narcotics and Flomax. UA did have stone debris I favor this was seen on CT. Discussed with Pt concerning signs and symptoms to watch out for. Pt was instructed to follow up with their PCP and discussed with the patient their option to return to the ED at anytime for persistent or worsening symptoms. The appropriate anticipatory guidance and out- patient management, including indications for return to the emergency department , were explained at length to the patient and understood. [place] Drug Monitoring Program Search Results: patient reviewed within database, no issues identified Medication Reconcilliation Current Medication List: was personally reviewed by me Blood Pressure Screening Patient's blood pressure: Elevated blood pressure Blood pressure disposition: Elevated BP felt to be situational Impression Primary Impression: Renal colic Additional Impression: Pelvic mass in female Scribe Attestation The scribe's documentation has been prepared under my direction and personally reviewed by me in its entirety. I confirm that the note above accurately reflects all work, treatment, procedures, and medical decision making performed by me. Departure Information Dispostion Home / Self-Care Prescriptions Tamsulosin Hcl (FLOMAX) 0.4 Mg Cap 0.4 MG PO DAILY, #10 CAP Prov: Benedict Rosado, DO 06/10/17 Oxycodone Immediate Rel Tab (ROXICODONE IR) 5 Mg Tab 5 MG PO Q6H Y for Pain, #10 TAB Prov: Benedict Rosado, DO 06/10/17 Referrals No Doctor, Assigned (PCP) Jase Flores M.D. Forms HOME CARE DOCUMENTATION FORM, IMPORTANT VISIT INFORMATION Patient Instructions Kidney Stones, [facility] Additional Instructions Please follow up with your primary care doctor or if you are a student, [facility] with in the next 24 hours. Any worsening of your symptoms, please return to the ED immediately. This includes any fevers greater than 100.4, worsening pain, chest pain, shortness breath, persistent nausea, vomiting, unable to eat or drink, or any other concerning signs or symptoms from your standpoint. You were given medications during this visit that will inhibit your ability to drive, operate machinery and work. Please do NOT drive, operate machinery or work for the next 12hrs. You were also given a prescription for a narcotic. While taking this medication you should also not drive, operate machinery and or work. You were found to have a blood pressure greater than 120 systolic over 90 diastolic. Due to the new Medicare guidelines, we are now recommending that you follow up with your primary care doctor in regards to this elevated blood pressure. Problem Qualifiers
== END 2017-06-10 23:03 | disposition home or self-care (01) ==
LOC: C.EDB 20:22 → C.EDA 23:03
DX: N23 Unspecified renal colic (principal); R19.09 Other intra-abdominal and pelvic swelling, mass and lump; R11.2 Nausea with vomiting, unspecified; F32.9 Major depressive disorder, single episode, unspecified; Z79.899 Other long term (current) drug therapy; Z97.5 Presence of (intrauterine) contraceptive device; Z82.49 Family history of ischemic heart disease and other diseases of the circulatory system; Z83.3 Family history of diabetes mellitus; F17.200 Nicotine dependence, unspecified, uncomplicated

== ENCOUNTER 2017-06-13 18:26 | Emergency (ER) | payer OTHER ==
[~2017-06-13] VITALS: Ht 162.6 cm; Wt 70.4 kg
[~2017-06-13 18:26] MED LIST changes: -DXY100 PO; +OXYC1TAB3 PO; +TAMS0.4C38 PO
[2017-06-13 18:49] VITALS: TEMP 37.1; Ht 162.6 cm; Wt 70.4 kg
--- NOTE | 2017-06-13 20:49 | EMERGENCY ROOM VISIT NOTE ---
History First contact with patient: 20:20 Chief Complaint: KIDNEY STONE Stated Complaint: KIDNEY STONES, STILL HAS PAIN, NAUSEA FEVER History of Present Illness The patient is a 36 year old female who presents to the Emergency Room with complaints of a kidney stone. The patient states that she was seen here 2 days ago and diagnosed with a kidney stone on the right side. She reports that she has been "out of commission" for the past few days and has not been able to do much due to the pain. She states that she started to feel better today, but has had some continued nausea and vomiting. She has been straining her urine and has been seeing crystals, but did not see a large stone passed. She has been taking Flomax daily as prescribed. She is also taking antibiotics for presumed pelvic inflammatory disease. She states that she felt hot today, but her temperature has been normal. She reports she would like to return back to work, but wants to make sure that she is safe to do so. She rates her current discomfort a 6/10. She does state that the pain has moved down lower in her abdomen than her initial pain. She denies any urinary symptoms or changes in bowel movements. She has not followed up with a urologist. Review of Systems A complete 10 point review of systems was reviewed with the patient with pertinent positives and negatives as per history of present illness. All else were negative. Past Medical/Surgical History Medical Problems: (1) Acetaminophen overdose (2) Depression (3) Drug overdose (4) Pain of right heel (5) s/p (6) Tobacco user Family History Diabetes mellitus FHx: cancer Heart disease Hypertension Social History Smoking Status: Current Every Day Smoker Alcohol Use: none, occasionally Drug Use: heroin Marital Status: single, in relationship Housing Status: lives alone Occupation Status: unemployed Current/Historical Medications Scheduled Metronidazole (Flagyl), 500 MG PO BID Ondasetron Odt (Zofran Odt), 4 MG SL Q6H Ondasetron Odt (Zofran Odt), 4 MG SL Q6H Tamsulosin Hcl (Flomax), 0.4 MG PO DAILY Scheduled PRN Oxycodone Immediate Rel Tab (Roxicodone Ir), 5 MG PO Q6H PRN for Pain Oxycodone/Acetaminophen 5MG/325MG (Percocet 5MG/325MG), 1 TAB PO Q4H PRN for Pain Physical Exam Vital Signs Date Time Temp Pulse Resp B/P (MAP) Pulse Ox O2 Delivery O2 Flow Rate FiO2 06/13/17 23:00 84 18 117/83 100 06/13/17 20:55 81 18 125/87 100 Room Air 06/13/17 18:49 37.1 130 18 114/72 96 Room Air Physical Exam VITALS: Vitals are noted on the nurse's note and reviewed by myself. Vital signs stable. GENERAL: This is a 36-year-old female, in no acute distress, nondiaphoretic, well-developed well-nourished. SKIN: Capillary reflex less than 2 seconds. HEART: Regular rate and rhythm without murmurs gallops or rubs. LUNGS: Clear to auscultation bilaterally without wheezes, rales or rhonchi. ABDOMEN: Positive bowel sounds x 4. Soft, nontender to palpation. MUSCULOSKELETAL: Mild right CVA tenderness. NEURO: Patient was alert and oriented to person place and time. Medical Decision & Procedures ER Provider Diagnostic Interpretation: KUB IMPRESSION: 1. No definite renal or ureteral calculi identified by conventional radiographic technique. Of note, the left kidney is obscured by overlying bowel. 2. No change in the density calcified lesion within the left adnexa which measures 5.1 x 2.8 cm. Laboratory Results 06/13/17 21:17 Red Blood Count 3.83, Mean Corpuscular Volume 94.3, Mean Corpuscular Hemoglobin 33.4, Mean Corpuscular Hemoglobin Concent 35.5, Mean Platelet Volume 8.9, Neutrophils (%) (Auto) 69.9, Lymphocytes (%) (Auto) 18.4, Monocytes (%) (Auto) 9.1, Eosinophils (%) (Auto) 2.0, Basophils (%) (Auto) 0.2, Neutrophils # (Auto) 7.27, Lymphocytes # (Auto) 1.91, Monocytes # (Auto) 0.95, Eosinophils # (Auto) 0.21, Basophils # (Auto) 0.02 06/13/17 21:17 Test 06/13/17 20:50 06/13/17 21:17 Urine Color YELLOW Urine Appearance CLEAR (CLEAR) Urine pH 6.5 (4.5-7.5) Urine Specific [place] 1.017 (1.000-1.030) Urine Protein NEG (NEG) Urine Glucose (UA) NEG (NEG) Urine Ketones NEG (NEG) Urine Occult Blood TRACE (NEG) Urine Nitrite NEG (NEG) Urine Bilirubin NEG (NEG) Urine Urobilinogen NEG (NEG) Urine Leukocyte Esterase SMALL (NEG) Urine WBC (Auto) 1-5 /hpf (0-5) Urine RBC (Auto) 0-4 /hpf (0-4) Urine Hyaline Casts (Auto) 1-5 /lpf (0-5) Urine Epithelial Cells (Auto) >30 /lpf (0-5) Urine Bacteria (Auto) NEG (NEG) Urine Test NEG (NEG) White Blood Count 10.40 K/uL (4.8-10.8) Red Blood Count 3.83 M/uL (4.2-5.4) Hemoglobin 12.8 g/dL (12.0-16.0) Hematocrit 36.1 % (37-47) Mean Corpuscular Volume 94.3 fL (80-100) Mean Corpuscular Hemoglobin 33.4 pg (25-34) Mean Corpuscular Hemoglobin Concent 35.5 g/dl (32-36) Platelet Count 297 K/uL (130-400) Mean Platelet Volume 8.9 fL (7.4-10.4) Neutrophils (%) (Auto) 69.9 % Lymphocytes (%) (Auto) 18.4 % Monocytes (%) (Auto) 9.1 % Eosinophils (%) (Auto) 2.0 % Basophils (%) (Auto) 0.2 % Neutrophils # (Auto) 7.27 K/uL (1.4-6.5) Lymphocytes # (Auto) 1.91 K/uL (1.2-3.4) Monocytes # (Auto) 0.95 K/uL (0.11-0.59) Eosinophils # (Auto) 0.21 K/uL (0-0.5) Basophils # (Auto) 0.02 K/uL (0-0.2) RDW Standard Deviation 47.0 fL (36.4-46.3) RDW Coefficient of Variation 13.6 % (11.5-14.5) Immature Granulocyte % (Auto) 0.4 % Immature Granulocyte # (Auto) 0.04 K/uL (0.00-0.02) Anion Gap 5.0 mmol/L (3-11) Est Creatinine Clear Calc Drug Dose 90.2 ml/min Estimated GFR () 105.1 Estimated GFR (Non- 90.7 BUN/Creatinine Ratio 17.7 (10-20) Calcium Level 8.5 mg/dl (8.5-10.1) ED Course The patient was evaluated as above. Labs were drawn and IV access was obtained. The patient declined analgesics. KUB was performed and read by radiology as above. Patient was reevaluated and findings were discussed. Discharge instructions were reviewed with the patient. The patient verbalized understanding of my assessment and treatment plan and was discharged home in good condition. Medical Decision Differential diagnosis includes obstructing kidney stone, infected stone, pyelonephritis, musculoskeletal pain, among others. The patient is a 36-year-old female who presents today complaining of persistent flank pain. The patient was seen here 2 days ago and had a CT scan which showed a 5 mm kidney stone in the right proximal ureter. Labs today revealed no leukocytosis, anemia or concerning electrolyte abnormalities. Urinalysis was have not suggestive of infection. KUB was performed but was not able to visualize the stone. I do not feel that repeat CT scan is warranted at this time. The patient has not followed up with urology and was encouraged to call for a follow-up appointment regarding her kidney stone. She was given an additional prescription for pain and nausea medication, as she received a small amount on her initial visit. She was encouraged to return here for any fevers or significantly worsening or new/concerning symptoms. The patient was agreeable to this treatment plan. Based on the patient's presentation and work up, I feel the patient is stable for outpatient treatment. The patient was educated to return to the emergency department for any worsening of their current condition or new/concerning symptoms. She will follow up with urology. Medication Reconcilliation Current Medication List: was personally reviewed by me Blood Pressure Screening Patient's blood pressure: Normal blood pressure Impression Primary Impression: Renal colic Departure Information Dispostion Home / Self-Care Condition GOOD Prescriptions Ondasetron Odt (ZOFRAN ODT) 4 Mg Tab 4 MG SL Q6H for Nausea, #10 TAB Prov: Kendra Solomon ., [place] 06/13/17 Oxycodone/Acetaminophen 5MG/325MG (PERCOCET 5MG/325MG) Tab 1 TAB PO Q4H Y for Pain, #10 TAB For Initial Treatment Prov: Kendra Solomon ., [place] 06/13/17 Referrals No Doctor, Assigned (PCP) Kamila Crawford M.D. Patient Instructions [facility] Additional Instructions Continue to follow the discharge instructions given to you previously. Follow-up with urology if you have continued pain in 2-3 days. Follow-up with gynecology for a pelvic ultrasound due to CT abnormality. Return to the emergency department with any worsening or new/concerning symptoms.
[2017-06-13 21:13] LABS: URINE APPEARANCE CLEAR (CLEAR); URINE BILIRUBIN NEG (NEG); URINE COLOR YELLOW; URINE EPITHELIAL CELL AUTO >30 /lpf (0-5); URINE NITRITE NEG (NEG); URINE PH 6.5 (4.5-7.5); URINE SPECIFIC GRAVITY 1.017 (1.000-1.030); UROBILINOGEN NEG (NEG); ZZUR CULT IF INDIC CLEAN CATCH NO
[2017-06-13 21:18] LABS: MANUAL MICROSCOPIC REQUIRED? NO; REVIEW REQ? NO
[2017-06-13 21:33] LABS: BASO % 0.2 %; BASO ABS # 0.02 K/uL (0-0.2); COMPLETE YES; HEMATOCRIT 36.1 % (37-47); IG% 0.4 %; LYMPH % 18.4 %; LYMPH ABS # 1.91 K/uL (1.2-3.4); MEAN CELL VOLUME 94.3 fL (80-100); MEAN CORPUSCULAR HEMOGLOBIN 33.4 pg (25-34); MEAN CORPUSCULAR HGB CONC 35.5 g/dl (32-36); MEAN PLATELET VOLUME 8.9 fL (7.4-10.4); MONO % 9.1 %; NEUT % 69.9 %; PLATELET COUNT 297 K/uL (130-400); RED BLOOD COUNT 3.83 M/uL (4.2-5.4)
[2017-06-13 21:50] LABS: BUN/CREATININE RATIO 17.7 (10-20); CALCIUM 8.5 mg/dl (8.5-10.1); CREATININE 0.83 mg/dl (0.60-1.20)
--- NOTE | 2017-06-13 22:07 | DIAGNOSTIC IMAGING REPORT ---
KUB HISTORY: Right-sided ureteral stone, check location COMPARISON: Abdomen and pelvis CT 05/31/17. FINDINGS: The bowel gas pattern is unremarkable. There are no dilated loops of small bowel to suggest an obstruction. An intrauterine device is identified. Densely calcified lesion is again seen within the left adnexa. Multiple left-sided calcifications within the deep pelvis consistent with phleboliths. The left kidney is obscured by overlying bowel. No definite renal calculi identified. No definite ureteral calculi identified. No pneumoperitoneum or pneumatosis. IMPRESSION: 1. No definite renal or ureteral calculi identified by conventional radiographic technique. Of note, the left kidney is obscured by overlying bowel. 2. No change in the density calcified lesion within the left adnexa which measures 5.1 x 2.8 cm. Electronically signed by: Deacon Arcos M.D. 06/13/2017 10:06 PM Dictated Date/Time: 06/13/2017 10:03 PM
[2017-06-13] MEDS ORDERED: OXYC-57 PO (22:52)
[2017-06-13] MEDS ORDERED: ONDA4TAB10 SL (22:52)
[2017-06-13 23:00] VITALS: BP 117/83; PULSE 84; O2SAT 100
== END 2017-06-13 23:10 | disposition home or self-care (01) ==
LOC: C.EDB 18:27 → C.EDC 23:10
DX: N20.1 Calculus of ureter (principal); F32.9 Major depressive disorder, single episode, unspecified; F17.200 Nicotine dependence, unspecified, uncomplicated; Z83.3 Family history of diabetes mellitus; Z80.9 Family history of malignant neoplasm, unspecified; Z82.49 Family history of ischemic heart disease and other diseases of the circulatory system

== ENCOUNTER 2017-10-03 23:56 | Emergency (ER) | payer OTHER ==
[~2017-10-03] VITALS: Ht 162.6 cm; Wt 66.7 kg
[~2017-10-03 23:56] MED LIST changes: -METR-163 PO; +OXYC-57 PO; -TAMS0.4C38 PO
[2017-10-04 00:01] VITALS: TEMP 36.5; Ht 162.6 cm; Wt 66.7 kg
[2017-10-04] MEDS ORDERED: ONDANSETRON INJ 2 MG/ML 2 ML VIAL IV STA (00:14)
[2017-10-04] MEDS ORDERED: DICYCLOMINE HCL 10 MG/ML 2 ML AMP IM ONE (00:15)
[2017-10-04 00:43] LABS: BASO % 0.3 %; BASO ABS # 0.05 K/uL (0-0.2); COMPLETE YES; EOS % 0.3 %; IG% 0.3 %; LYMPH % 8.6 %; LYMPH ABS # 1.33 K/uL (1.2-3.4); MEAN CELL VOLUME 97.7 fL (80-100); MEAN CORPUSCULAR HEMOGLOBIN 33.3 pg (25-34); MEAN PLATELET VOLUME 8.8 fL (7.4-10.4); MONO % 4.7 %; NEUT % 85.8 %; PLATELET COUNT 338 K/uL (130-400); WHITE BLOOD COUNT 15.54 K/uL (4.8-10.8)
[2017-10-04 00:50] LABS: MANUAL MICROSCOPIC REQUIRED? NO; REVIEW REQ? YES; URINE APPEARANCE TURBID (CLEAR); URINE BILIRUBIN NEG (NEG); URINE COLOR YELLOW; URINE EPITHELIAL CELL AUTO >30 /lpf (0-5); URINE NITRITE NEG (NEG); URINE SPECIFIC GRAVITY 1.031 (1.000-1.030); UROBILINOGEN NEG (NEG); ZZUR CULT IF INDIC CLEAN CATCH YES
[2017-10-04 01:02] LABS: BUN/CREATININE RATIO 15.5 (10-20); CALCIUM 8.4 mg/dl (8.5-10.1); CREATININE 0.81 mg/dl (0.60-1.20); POTASSIUM 3.1 mmol/L (3.5-5.1)
[2017-10-04 01:04] LABS: PREG INTERNAL NEGATIVE QC NEG CLEAR BACKGROUND; PREG INTERNAL POSITIVE QC POS CONTROL LINE
[2017-10-04] MEDS ORDERED: POTASSIUM CHLORIDE 10 MEQ TABCR PO STA (01:22)
[2017-10-04] MEDS ORDERED: KETOROLAC TROMETHAMINE 30 MG/ML VIAL IV STA (01:55)
[2017-10-04] MEDS ORDERED: ONDANSETRON HOME PACK 4MG OD TAB PO ONE (03:00)
--- NOTE | 2017-10-04 03:06 | EMERGENCY ROOM VISIT NOTE ---
History First contact with patient: 00:06 Chief Complaint: ABDOMINAL PAIN Stated Complaint: SEVERE ABDOMINAL PAIN-HX OF KIDNEY STONES Nursing Triage Summary: Pt c/o back to abdominal pain that started this morning, pt has stomach cramping along with it, nausea. History of Present Illness The patient is a 37 year old female who presents to the Emergency Room with complaints of diffuse abdominal discomfort for the past few hours that started in her back and now is all throughout her abdomen. Patient has not followed up for the ovarian lesion seen on last CT scan in the ER a few months ago. Patient has had kidney stones in the past. This feels slightly different. Pain currently 6 out of 10 throughout the abdomen without localized pain. Nothing makes it better or worse. Patient denies chest pain, dyspnea, fever, chills, vomiting, diarrhea, urinary symptoms. Patient does not have an LIVESTOCK INSPECTOR. No recent Pap smear. Review of Systems See HPI for pertinent positives & negatives. A total of 10 systems reviewed and were otherwise negative. Past Medical/Surgical History Medical Problems: (1) Acetaminophen overdose (2) Depression (3) Drug overdose (4) Pain of right heel (5) s/p (6) Tobacco user Family History Diabetes mellitus FHx: cancer Heart disease Hypertension Social History Smoking Status: Current Every Day Smoker Alcohol Use: none, occasionally Drug Use: heroin Marital Status: single, in relationship Housing Status: lives alone Occupation Status: unemployed Current/Historical Medications No Active Prescriptions or Reported Meds Allergies Coded Allergies: No Known Allergies (Unverified , 10/04/17) Physical Exam Vital Signs Date Time Temp Pulse Resp B/P (MAP) Pulse Ox O2 Delivery O2 Flow Rate FiO2 10/04/17 02:00 84 18 98/63 98 Room Air 10/04/17 00:01 36.5 82 20 122/74 97 Room Air Physical Exam VITALS: Vitals are noted on the nurse's note and reviewed by myself. Vital signs stable. GENERAL: White female, in no acute distress, nondiaphoretic, well-developed well -nourished. SKIN: The skin was without rashes, erythema, edema, or bruising. There is no tenting of the skin. Capillary reflex less than 2 seconds. HEAD: Normocephalic atraumatic. EARS: External auditory canals clear EYES: Pupils equal round and reactive to light and accommodation. Conjunctivae without injection, sclerae without icterus. Extraocular movements intact. NOSE: Patent, turbinates without inflammation or discharge. MOUTH: Mucous membranes moist. Pharynx without erythema or exudate. Uvula midline. Airway patent. Tongue does not deviate. NECK: Supple without nuchal rigidity. No lymphadenopathy. No thyromegaly. Cervical spine is nontender. No JVD. HEART: Regular rate and rhythm without murmurs gallops or rubs. LUNGS: Clear to auscultation bilaterally without wheezes, rales or rhonchi. No dullness to percussion. No retractions or accessory muscle use. ABDOMEN: Positive bowel sounds x 4. Normal tympanic percussion. Soft, nontender, without masses or organomegaly. Franklin sign negative. No guarding or rebound tenderness. No CVA tenderness MUSCULOSKELETAL: No muscle atrophy, erythema, or edema noted. NEURO: Patient was alert and oriented to person place and time. Normal sensation to light and sharp touch. No focal neurological deficits. Medical Decision & Procedures Laboratory Results 10/04/17 00:30 Red Blood Count 4.30, Mean Corpuscular Volume 97.7, Mean Corpuscular Hemoglobin 33.3, Mean Corpuscular Hemoglobin Concent 34.0, Mean Platelet Volume 8.8, Neutrophils (%) (Auto) 85.8, Lymphocytes (%) (Auto) 8.6, Monocytes (%) (Auto) 4.7, Eosinophils (%) (Auto) 0.3, Basophils (%) (Auto) 0.3, Neutrophils # (Auto) 13.34, Lymphocytes # (Auto) 1.33, Monocytes # (Auto) 0.73, Eosinophils # (Auto) 0.04, Basophils # (Auto) 0.05 10/04/17 00:30 Test 10/04/17 00:25 10/04/17 00:30 Urine Color YELLOW Urine Appearance TURBID (CLEAR) Urine pH 5.0 (4.5-7.5) Urine Specific [place] 1.031 (1.000-1.030) Urine Protein NEG (NEG) Urine Glucose (UA) NEG (NEG) Urine Ketones TRACE (NEG) Urine Occult Blood NEG (NEG) Urine Nitrite NEG (NEG) Urine Bilirubin NEG (NEG) Urine Urobilinogen NEG (NEG) Urine Leukocyte Esterase NEG (NEG) Urine WBC (Auto) 5-10 /hpf (0-5) Urine RBC (Auto) 0-4 /hpf (0-4) Urine Hyaline Casts (Auto) 0 /lpf (0-5) Urine Epithelial Cells (Auto) >30 /lpf (0-5) Urine Bacteria (Auto) 1+ (NEG) Urine Crystals CALCIUM OXALATE (NONE Urine Pathogenic Casts /lpf (0) Urine Yeast (Auto) (NONE PRSENT) White Blood Count 15.54 K/uL (4.8-10.8) Red Blood Count 4.30 M/uL (4.2-5.4) Hemoglobin 14.3 g/dL (12.0-16.0) Hematocrit 42.0 % (37-47) Mean Corpuscular Volume 97.7 fL (80-100) Mean Corpuscular Hemoglobin 33.3 pg (25-34) Mean Corpuscular Hemoglobin Concent 34.0 g/dl (32-36) Platelet Count 338 K/uL (130-400) Mean Platelet Volume 8.8 fL (7.4-10.4) Neutrophils (%) (Auto) 85.8 % Lymphocytes (%) (Auto) 8.6 % Monocytes (%) (Auto) 4.7 % Eosinophils (%) (Auto) 0.3 % Basophils (%) (Auto) 0.3 % Neutrophils # (Auto) 13.34 K/uL (1.4-6.5) Lymphocytes # (Auto) 1.33 K/uL (1.2-3.4) Monocytes # (Auto) 0.73 K/uL (0.11-0.59) Eosinophils # (Auto) 0.04 K/uL (0-0.5) Basophils # (Auto) 0.05 K/uL (0-0.2) RDW Standard Deviation 47.9 fL (36.4-46.3) RDW Coefficient of Variation 13.5 % (11.5-14.5) Immature Granulocyte % (Auto) 0.3 % Immature Granulocyte # (Auto) 0.05 K/uL (0.00-0.02) Anion Gap 4.0 mmol/L (3-11) Est Creatinine Clear Calc Drug Dose 89.4 ml/min Estimated GFR () 107.5 Estimated GFR (Non- 92.8 BUN/Creatinine Ratio 15.5 (10-20) Calcium Level 8.4 mg/dl (8.5-10.1) Total Bilirubin 0.6 mg/dl (0.2-1) Direct Bilirubin 0.1 mg/dl (0-0.2) Aspartate Amino Transf (AST/SGOT) 12 U/L (15-37) Alanine Aminotransferase (ALT/SGPT) 24 U/L (12-78) Alkaline Phosphatase 71 U/L (45-117) Total Protein 7.7 gm/dl (6.4-8.2) Albumin 4.1 gm/dl (3.4-5.0) Lipase 92 U/L (73-393) Human Chorionic Gonadotropin, Qual NEG (NEG) Medications Administered Medications (Trade) Dose Ordered Sig/Jonnathan Route Start Time Stop Time Status Last Admin Dose Admin Ondansetron HCl (Zofran Inj) 4 mg NOW STAT IV 10/04/17 00:14 10/04/17 00:16 DC 10/04/17 00:25 4 MG Dicyclomine HCl (Bentyl Inj) 20 mg NOW ONCE IM 10/04/17 00:15 10/04/17 00:16 DC 10/04/17 00:25 20 MG Potassium Chloride (Klor-Con M10) 40 meq NOW STAT PO 10/04/17 01:22 10/04/17 01:23 DC 10/04/17 01:52 40 MEQ Ketorolac Tromethamine (Toradol Inj) 30 mg NOW STAT IV 10/04/17 01:55 10/04/17 01:56 DC 10/04/17 01:57 30 MG ED Course Prior records/ancillary studies reviewed. Triage Nursing notes reviewed. The patient's history was concerning for abdominal pain. Differential diagnosis: Etiologies such as appendicitis, diverticulitis, PUD, biliary pathology, UTI, pancreatitis, obstruction, mesenteric ischemia, aortic pathology, infections, inflammatory bowel disease, renal colic, as well as others were entertained. Physical examination findings: As above. ER treatment provided: Zofran, Bentyl, Toradol On reassessment the patient felt better. Diagnostics interpreted by me: The labs revealed mild leukocytosis. Negative urine. Negative hCG Imaging studies: Ultrasound concerning for fibroids and left calcified lesion on the ovary per stat radiology Exam and history seem consistent with abdominal discomfort with unclear etiology. Patient was asleep upon reassessment and had to be awakened to review the results. Patient was informed of the results. She was upset as I did not have a clear-cut answer for her abdominal pain. I informed her she is to follow-up with OB for her abnormality seen on ultrasound tonight and on prior CT imaging. She verbalized understanding of this. She is advised to follow-up family care for her abdominal discomfort or symptoms persist or here in the ER sooner for pain, fevers, vomiting, worsening signs or symptoms or as needed. Patient did not have acute abdomen on exam. There was no localized pain. She was tolerating fluids. By the evaluation outlined above emergent etiologies such as appendicitis, diverticulitis, PUD, biliary pathology, UTI, pancreatitis, obstruction, mesenteric ischemia, aortic pathology, infections, inflammatory bowel disease, renal colic, as well as others were deemed relatively unlikely. The pt informed about the findings as listed above. All questions were answered and pleased with the treatment. Return instructions were outlined and the patient was discharged in stable condition. Outpatient prescription management: zofran Referral: The patient was referred back to their primary care physician and LIVESTOCK INSPECTOR for follow-up in 2 to 3 days for a recheck of the current condition. Case reviewed by attending. Medical Decision As above Impression Primary Impression: Abdominal discomfort, generalized Additional Impression: ovarian lesion Departure Information Dispostion Home / Self-Care Condition GOOD Prescriptions No Active Prescriptions or Reported Meds Referrals Darya Calloway M.D.(PROGRAMMING DIRECTOR/OB) Forms Call Back Authorization, HOME CARE DOCUMENTATION FORM, Work Instructions, Return To Work: 1 day IMPORTANT VISIT INFORMATION Patient Instructions Abdominal Pain - [facility], [facility] Additional Instructions Recommend repeat pelvic ultrasound in 6 weeks for resolution of cyst. Rest. Stay well hydrated. No strenuous activity until symptoms resolve. Zofran 4 tablet every 6 hours as needed for nausea and vomiting. Ibuprofen(Motrin, Advil) may be used for fever or pain. Use 600mg every six hours as needed. Take with food. Avoid using more than 2400mg in a 24 hour period. Do not use 2400mg per day for more than three consecutive days without physician direction. Prolonged inappropriate use can lead to stomach upset or ulcers. (AND/OR) Acetaminophen(Tylenol) may be used for fever or pain. Use 1000mg every six hours as needed. Avoid using more than 3000mg in a 24 hour period. Rest and drink plenty of fluids as tolerated. Continue current medications. Return to the ER immediately for severe pain, heavy vaginal bleeding, abdominal pain, vomiting, fevers, chest pains, difficulty breathing, worsening of your condition, or as needed. Follow up with your LIVESTOCK INSPECTOR in 2-3 days for a recheck of your current condition. Work Instructions Return To Work: 1 day Problem Qualifiers
[2017-10-04 03:08] VITALS: BP 115/73; PULSE 84; O2SAT 98
--- NOTE | 2017-10-04 06:44 | DIAGNOSTIC IMAGING REPORT ---
EXAMINATION: PELVIC ULTRASOUND (transabdominal and endovaginal scanning) CLINICAL HISTORY: Pelvic pain COMPARISON STUDY: CT scan dated 06/10/2017 FINDINGS: The uterus measured 8.5 x 4 x 4.5 cm. 2 small fibroids are suspected measuring 9 mm and 6 mm respectively.. The endometrial stripe measured 3 mm. An IUD is visualized in the endometrial cavity.. The right ovary measured 31 x 25 x 31 mm. The left ovary measured 30 x 15 x 25 mm.. In the left adnexa, there is a shadowing mass measuring 5 x 2.6 x 2.5 cm. This was visualized the preceding CT scan. This appears extra ovarian. There is no ultrasonographic evidence of ovarian torsion. It should be noted that ovarian torsion can be present with normal Doppler ultrasonographic findings. There was no evidence of pathologic free pelvic fluid. IMPRESSION: 1. Calcified left adnexal mass measuring 5 x 2.6 x 2.5 cm. This is likely separate from the left ovary and uterus. This was present on the preceding CT scan. The etiology of this lesion is not known. 2. Small uterine fibroids 3. No ovarian lesions are visualized Electronically signed by: Ariel Williamson M.D. 10/04/2017 6:43 AM Dictated Date/Time: 10/04/2017 6:38 AM
== END 2017-10-04 03:09 | disposition home or self-care (01) ==
LOC: C.EDB 23:57
DX: R10.84 Generalized abdominal pain (principal); N83.9 Noninflammatory disorder of ovary, fallopian tube and broad ligament, unspecified; F32.9 Major depressive disorder, single episode, unspecified; F17.200 Nicotine dependence, unspecified, uncomplicated; Z83.3 Family history of diabetes mellitus; Z80.9 Family history of malignant neoplasm, unspecified; Z82.49 Family history of ischemic heart disease and other diseases of the circulatory system

== ENCOUNTER → 2017-11-22 | Outpatient (CLI) | payer OTHER ==
--- NOTE | 2017-11-22 21:28 | DIAGNOSTIC IMAGING REPORT ---
MRI OF THE RIGHT SHOULDER CLINICAL HISTORY: Right shoulder pain. Decreased range of motion. COMPARISON STUDY: No priors. TECHNIQUE: MRI of the right shoulder was performed utilizing various T1 and T2 weighted sequences in the axial, sagittal, coronal planes. IV contrast was not administered for this examination. Note that interpretation is suboptimal without plain film correlate. The examination is also degraded by motion artifact. FINDINGS: Rotator cuff: There is severe tendinopathy of the supraspinatus tendon with a large full-thickness tear located 8 mm from the leading edge. The tear measures 5 mm in length. No musculotendinous retraction is seen. A few of the anterior fibers remain intact. Tearing is also seen involving the anterior fibers of the infraspinatus tendon. The majority of the fibers are intact. The teres minor and subscapularis tendons are intact. There is bowel subacromial and subdeltoid bursal fluid. The acromioclavicular joint is unremarkable. Biceps tendon: The long head of the biceps tendon is normal in signal intensity and located within the bicipital groove. The anchor is maintained. Labrum: The labrum appears truncated. Circumferential degenerative tearing is suggested, greatest anteriorly. Shoulder joint: There is a small joint effusion. The articular cartilage over the glenoid is well maintained. There is marked marrow edema present within the humeral head extending the humeral neck. No discrete fracture line is identified. Musculature and soft tissues: Mild intramuscular edema is noted within the anterior deltoid. Mild edema is also seen within the body of supraspinatus. The musculature of the shoulder is normal in bulk. No atrophy is seen. IMPRESSION: 1. Tendinopathy with a large full-thickness tear of the supraspinatous tendon. No musculotendinous retraction is seen. 2. There is also tearing involving the anterior fibers of the infraspinatus tendon. 3. There is intramuscular edema identified within the body of supraspinatous. No atrophy is seen. 4. Joint effusion. 5. The labrum appears truncated and circumferential tearing is suspected. 6. Extensive marrow edema is present within the humeral head and neck, possibly representing contusion. Clinical correlation will be essential. Electronically signed by: Ron Thomson M.D. 11/22/2017 9:26 PM Dictated Date/Time: 11/22/2017 9:17 PM
== END | disposition home or self-care (01) ==
LOC: C.MRI 20:01
PROVIDERS: ATTEND Nurse Practitioner Family
DX: S43.491A Other sprain of right shoulder joint, initial encounter (principal); X58.XXXA Exposure to other specified factors, initial encounter; M25.511 Pain in right shoulder

== ENCOUNTER → 2017-11-29 | Outpatient (CLI) | payer OTHER ==
[~2017-11-29] MED LIST changes: -ONDA4TAB10 SL; -OXYC-57 PO; -OXYC1TAB3 PO; +PSEU60TA80 PO
== END | disposition home or self-care (01) ==
LOC: C.RDSM 13:54
PROVIDERS: ATTEND Orthopaedic Surgery
DX: M25.511 Pain in right shoulder (principal)

== ENCOUNTER → 2017-12-12 | Day surgery (SDC) | payer OTHER ==
[2017-12-02 10:21] VITALS: Ht 162.6 cm; Wt 68.2 kg
[~2017-12-12] VITALS: Ht 162.6 cm; Wt 68.2 kg
[~2017-12-12] MED LIST changes: +ATROPINE SULFATE 0.1 MG/ML 5ML SYR IV PRN; +BUPIVACAINE/EPINEPHRINE 0.5% MPF 1:200,000 30 ML VIAL ONE; +CEFAZOLIN 2000MG IV PUSH 15 ML IV SCH; +DEXAMETHASONE SOD INJ 4 MG/ML VIAL ONE; +EpINEphrine INJ 1MG/ML AMP 1 MG/ML AMP ONE; +FENTANYL CITRATE INJ 50 MCG/1 ML 2 ML VIAL IV PRN; +FENTANYL CITRATE INJ 50 MCG/1 ML 2 ML VIAL ONE; +GLYCOPYRROLATE INJ 0.2 MG/ML VIAL ONE; +KETOROLAC TROMETHAMINE 30 MG/ML VIAL IV. PRN; +LACTATED RINGER'S 1000ML 1,000 ML IV SCH; +LIDOCAINE HCL 2% 2 ML VIAL (20MG/ML) ONE; +METHYLPREDNISOLONE ACETATE 80 MG/ML VIAL ONE; +MIDAZOLAM HCL 1 MG/ML 2ML VIAL ONE; +MoRPHine SULFATE 2 MG/ML CARP IV PRN; +MoRPHine SULFATE 4 MG/ML 1 ML CARP\\VIAL IV PRN; +NEOSTIGMINE METHYLSULFATE 5 MG/5 ML SYR ONE; +ONDANSETRON INJ 2 MG/ML 2 ML VIAL IV PRN; +ONDANSETRON INJ 2 MG/ML 2 ML VIAL ONE; +OXYCODONE/ACETAMINOPHEN 5-325 TAB PO PRN; +PROPOFOL IV EMULSION 10 MG/ML 20 ML VIAL IV ONE; +ROCURONIUM BROMIDE 10 MG/ML 5 ML VIAL IV ONE; +ROPIVACAINE 0.5% 5 MG/ML 30 ML VIAL ONE; +SODIUM CHLORIDE 0.9% 1000ML 1,000 ML IV SCH
--- NOTE | 2017-12-12 09:52 | History & Physical Bridge - [place] ---
H&P Re-Evaluation Bridge Note: I have examined the patient, reviewed the History & Physical and in the interval since the performance of the History & Physical I have noted the following changes of clinical significance: No changes noted
--- NOTE | 2017-12-12 11:53 | [facility] Post Operative Brief Note ---
Immediate Operative Summary Operative Date Dec 12, 2017. Pre-Operative Diagnosis Right Frozen Shoulder, Synovitis, Partial thickness Rotator Cuff Tear, Subacromial bursitis Post-Operative Diagnosis Same Procedure(s) Performed Right Shoulder Arthroscopy, major synovectomy, Capsular Release, Subacromial Bursectomy, Manipulation Under Anesthesia, corticosteroid injection into subacromial space Surgeon Dr. Jordan Creel Cleaner Surgeon(s) Dilan Elise PA-C Estimated Blood Loss 10 ml Findings Consistent with Post-Op Diagnosis Fluids (cc crystalloids) 650 cc Specimens None Drains None Anesthesia Type General Regional Complication(s) none Disposition Accompanied Pt To Recovery: no Disposition: Recovery Room / PACU
--- NOTE | 2017-12-12 12:10 | [facility] Operative Report ---
Operative Report Operative Date Dec 12, 2017. Pre-Operative Diagnosis Right Frozen Shoulder, Synovitis, Partial thickness Rotator Cuff Tear, Subacromial bursitis Post-Operative Diagnosis Same Procedure(s) Performed Right Shoulder Arthroscopy, major synovectomy, Capsular Release, Subacromial Bursectomy, Manipulation Under Anesthesia, corticosteroid injection into subacromial space Surgeon Dr. Jordan [employer] Surgeon(s) Dilan Elise PA-C Estimated Blood Loss 10 ml Fluids 650 cc Specimens None Drains None Anesthesia Type General Regional Complication(s) none Disposition no Recovery Room / PACU I attest to the content of the Intraoperative Record and any orders documented therein. Any exceptions are noted below.
--- NOTE | 2017-12-12 12:15 | Discharge Instructions ---
Discharge Instructions Date of Service Dec 12, 2017. Admission Reason for Admission: Right Shoulder Rotator Cuff Tear, Subacromial Spur Discharge Discharge Diagnosis / Problem: Right shoulder adhesive capsulitis, bursitis & synovitis Discharge Goals Goal(s): Decrease discomfort, Improve function, Increase independence Activity Recommendations Activity Limitations: as noted below Lifting Limitations: until after follow-up appointment Exercise/Sports Limitations: until after follow-up appointment May Resume Sexual Activity: when tolerated Shower/Bathe: tomorrow, keep incision dry Driving or Machine Use: No driving until cleared by sourcing specialist Weightbearing Status: Right non-weightbearing (with Right upper extremity) . Instructions / Follow-Up Instructions / Follow-Up Post-operative Instructions Dear Patient and Family/Friends, Before you are discharged from the hospital, it is important to know what to expect when you get home after surgery. To that end, we have created this sheet of discharge instructions which covers many commonly asked questions. Make sure you go through this sheet in its entirety with your nurse before you are discharged. Please note that we will go over the specifics of your surgery and recovery when you return for your first post-operative visit. Sincerely, Dr. Jordan Pain Expect to be in a fair amount of pain after surgery. Remember, our goal is not to eliminate your pain, but to make it tolerable. It is a good idea to stay ahead of your pain by taking the medications you were prescribed once you get home. Typically, the pain starts improving 3-7 days after surgery. You should start weaning off the narcotic pain medication (oxycodone, hydrocodone, hydromorphone, morphine) as soon as your pain improves. Please call our office if your pain is not adequately controlled. Ice Ice your operative site at least 5 times a day for 15-30 minutes at a time. Make sure you have a thin cloth between the ice or cooling unit and your skin to prevent barakat bite. This is especially important if you received a nerve block. Continue icing your operative site for the first 5-7 days after surgery , then as needed. Diet/Nausea/Vomiting Start by drinking clear liquids and eating crackers. If you can tolerate this, then you may resume your normal diet. If you feel nauseated or vomit, take Zofran/ondansetron (if prescribed). Please call our office if you have intractable nausea or vomiting, or, if after hours, you may go to the Emergency Room for help. Constipation Constipation is a common side effect of narcotic pain medication. If you have not had a bowel movement within 2 days after surgery, we recommend purchasing an over the counter laxative such as Milk of Magnesia, Dulcolax, or Miralax from a local pharmacy, and taking it as instructed. Call our clinic if any questions. Slings and Braces If you were placed in a sling or brace, it must be worn at all times, including sleep. You may remove your sling or brace for physical therapy, home exercises , and showering. The length of time you will be in your brace and range of motion restrictions depends on what surgery you had; these details will be reviewed at your first post-operative appointment. Nerve block The anesthesia team sometimes places a nerve block to help with post-operative pain control. This results in significant numbness and inability to move the extremity. The nerve block usually wears off in 8-12 hours, but sometimes can last up to 24 hours. Please call our office if you are still unable to move your extremity after 24 hours, unless you received a pain pump to take home. Nerve blocks typically wear off quickly, so start taking pain medication as soon as you start feeling soreness near your surgical site. Weight bearing and Range of Motion. Do not bear any weight through your operative extremity immediately after surgery. If you had upper extremity surgery, do not lift anything with that arm. If you are in a knee brace, keep it locked in place until your follow-up. We will discuss your weight bearing, range of motion, and lifting restrictions in detail at your first post-operative appointment. Continuous Passive Motion (CPM) Machine If you were prescribed a CPM machine, it will start after your first post- operative appointment, at which time we will give you instructions on the range of motion settings and duration of treatment Physical therapy You will be given a prescription for physical therapy or occupational therapy at your first post-operative appointment. Typically, patients start therapy within 1 week of surgery Wound care and showering We will inspect your wound at your first post-operative visit, and may do a dressing change at that time. Most patients will be in a water-proof dressing that is removed 14 days after surgery. It is normal to see some dried blood on the dressing. Do not remove your dressing, paper strips or sutures yourself unless you are given permission. Showering is allowed the day after surgery. Do not scrub or remove any dressings. The wound should not be submerged underwater (i.e. in a bathtub or pool) until 4 weeks after surgery RANJITH stockings If you were given white stockings, these are to be worn at all times except to shower (on both legs) for the first 2 weeks after surgery. Driving You may not drive while taking narcotic pain medication or while in a cast, splint, sling or brace. You, the patient, need to make the final determination about when you are safe to drive, however, the earliest you may consider driving after surgery is below: Hand/Wrist/Elbow Surgery: 3 days Shoulder Surgery: 2 weeks Hip,/Knee/Ankle Surgery: 4 weeks Fracture repair: 6 weeks Return to Work Your return to work depends on what surgery was done and what type of work you do. Please bring any paperwork your employer needs completed to your first post -operative visit. Also, bring a description of your job duties, as this helps us to understand what risks you may face at work. Travel Avoid long distance travel (greater than 1 hour) in airplanes and cars for the first 6 weeks after surgery. If you must travel, you need to have a Doppler ultrasound done before you travel to rule out a blood clot in your legs. Follow-up You should have a follow-up appointment already scheduled 1-2 days after surgery. If not, please contact our office to make this appointment before you leave the hospital. When to call the office It is normal to have swelling and bruising in the limb that was operated on. This will improve with time. It is also normal to have fevers for the first 2 days after surgery. Reasons you should call your doctor include: Uncontrolled pain; Nausea, vomiting, or constipation that does not improve with medication; Fevers over 101.5, chills, sweats; Drainage or bleeding from the wound; Foul odor; Spreading areas of redness; Any other concerns Current Hospital Diet Patient's current hospital diet: Discharge Diet Recommended Diet: Regular Diet Procedures Procedures Performed: Right Shoulder Arthroscopy, major synovectomy, Capsular Release, Subacromial Bursectomy, Manipulation Under Anesthesia, corticosteroid injection into subacromial space Pending Studies Studies pending at discharge: no Medical Emergencies . Who to Call and When: Medical Emergencies: If at any time you feel your situation is an emergency, please call 911 immediately. . Non-Emergent Contact Non-Emergency issues call your: Primary Care Provider Call Non-Emergent contact if: you have a fever, temperature is above 101.5, your pain is not controlled, your pain is worsening, wound has increased drainage, you have any medication questions . "Provider Documentation" section prepared by Haresh Elise. . VTE Core Measure Inpt VTE Proph given/why not?: Other Anticoagulation (Aspirin EC 81 mg), T.E.Dilan Boyce [place] Drug Monitoring Program Search Results: patient reviewed within database, no issues identified, see additional documentation
[2017-12-12 12:56] VITALS: TEMP 37.2
--- NOTE | 2017-12-12 13:14 | Anesthesiology Progress Note ---
Anesthesia Post Op Note Date & Time Dec 12, 2017 at 13:13 Vital Signs Pain Intensity: 0 Vital Signs Past 12 Hours Date Time Temp Pulse Resp B/P (MAP) Pulse Ox O2 Delivery O2 Flow Rate FiO2 12/12/17 12:56 37.2 63 16 96/61 (73) 94 Room Air 12/12/17 12:46 66 17 12/12/18 12:46 67 17 94 18 12:45 91/61 18 12:44 37.6 73 20 97/55 95 Room Air 12/12/17 12:41 65 20 18 12:41 66 20 92 18 12:40 97/55 18 12:36 69 19 92 18 12:36 68 19 18 12:35 102/63 12/12/18 12:31 63 27 94 12/12/18 12:31 62 27 12/12/18 12:30 99/59 18 12:29 70 24 95 18 12:29 71 24 18 12:25 100/58 12/12/18 12:24 74 22 12/12/18 12:24 73 22 99 12/12/18 12:20 100/55 12/12/18 12:19 75 19 99 12/12/18 12:19 75 19 12/12/18 12:15 98/56 18 12:14 84 19 12/12/18 12:14 86 19 99 12/12/18 12:11 96/52 18 12:10 90/53 18 12:09 96 95 18 12:09 96 18 12:09 36.7 85 12 96/52 99 Diffusion Mask 6 12/12/17 10:17 0 12/12/18 10:12 60 15 97 12/12/18 10:12 58 12/12/18 10:10 91/54 12/12/18 10:07 66 17 99 2/18 10:07 64 12/12/18 10:06 95/50 12/12/18 10:03 48 26 99 12/12/18 10:03 55 12/12/18 10:01 92/57 18 09:58 58 18 98 12/12/17 09:58 61 12/12/17 09:55 91/52 12/12/17 09:53 63 12/12/17 09:53 65 19 97 12/12/17 09:50 91/64 12/12/17 09:48 67 26 98 12/12/17 09:48 65 12/12/17 09:45 105/64 12/12/17 09:43 67 12/12/17 09:43 67 16 98 12/12/17 09:42 99/58 12/12/17 09:41 60 17 99/58 (72) 100 Mask 4 12/12/17 09:38 0 12/12/17 09:33 0 12/12/17 09:28 0 12/12/17 09:23 53 0 12/12/17 09:18 55 0 12/12/17 09:13 58 0 12/12/17 09:08 56 0 12/12/17 09:03 61 0 12/12/17 08:58 56 0 12/12/17 08:53 55 0 12/12/17 08:48 0 12/12/17 07:50 36.6 76 22 96/62 (73) 100 Room Air Notes Mental Status: alert / awake / arousable, participated in evaluation Pt Amnestic to Procedure: Yes Nausea / Vomiting: adequately controlled Pain: adequately controlled Airway Patency, RR, SpO2: stable & adequate BP & HR: stable & adequate Hydration State: stable & adequate Anesthetic Complications: no major complications apparent
[2017-12-12 13:30] VITALS: BP 87/55; PULSE 59; O2SAT 96
--- NOTE | 2017-12-12 14:28 | OPERATIVE REPORT ---
DATE OF OPERATION: 12/12/2017 PREOPERATIVE DIAGNOSES: Right frozen shoulder, synovitis, subacromial bursitis, and partial thickness rotator cuff tear. POSTOPERATIVE DIAGNOSES: Same. OPERATIONS PERFORMED: 1. Right shoulder arthroscopic major synovectomy. 2. Right shoulder arthroscopic capsular release. 3. Right shoulder subacromial bursectomy. 4. Right shoulder manipulation under anesthesia. 5. Right shoulder subacromial corticosteroid injection. SURGEON: Pedro Jordan MD SKILLED LABORER: Dilan Elise PA-C and Elizabeth Granados, medical student. IV FLUIDS: 650 mL of crystalloid. ESTIMATED BLOOD LOSS: 10 mL URINE OUTPUT: Not recorded. SPECIMENS: None. COMPLICATIONS: None. IMPLANTS: None. INDICATIONS: Ms. Box is a 37-year-old right-hand dominant female who injured her shoulder at work back in August 2017. She has been undergoing conservative management, which has been failing to relieve her symptoms. She is having significant stiffness in her shoulder and inability to perform overhead activities. An MRI was performed, which demonstrated a high-grade partial thickness tear of her rotator cuff as well as thickening of her inferior capsule. I had a long discussion with her about the risks and benefits of surgery, alternatives to surgery and expected outcomes. After reviewing all these, she elected to proceed with surgery. All questions were answered. Informed consent was signed. OPERATIVE FINDINGS: 1. The subscapularis tendon was normal. 2. The articular and bursal sides of the supraspinatus and infraspinatus were within normal limits with thickening, but no full thickness cuff tear. 3. The axillary pouch was contracted consistent with the frozen shoulder. 4. The labrum showed a very small area of fraying of the posterior inferior labrum. Otherwise, it was intact. 5. The posterior gutter, superior gutter and anterior gutter all showed synovitic changes encroaching up onto the bicipital root. 6. The biceps tendon itself was normal. 7. The articular cartilage of the glenoid and humeral head were normal. Major synovectomy was performed. The capsule was released circumferentially with electrocautery with the exception of the inferior capsule due to the close proximity of the axillary nerve. This would later be released with manipulation under anesthesia. A subacromial bursectomy was performed. At the conclusion of the case, 80 mg of Depo-Medrol with 9 mL of 0.5% Marcaine with epinephrine was injected in subacromial space. DESCRIPTION OF THE OPERATION: The patient was identified in the preoperative holding area where her surgical site was marked. She was given interscalene block by anesthesia and brought back to main operating room. She was placed on the operating room table and general anesthesia was administered. Examination under anesthesia was then performed. She had 90 degrees of forward elevation, 45 degrees of abduction, 30 degrees of external rotation and with the arm abducted, and 25 degrees of internal rotation. She was then moved in the lateral decubitus position. Axillary roll was placed. All bony prominences were padded. Perioperative antibiotics were administered. She was prepped and draped in the normal sterile fashion. Prior to incision, a multidisciplinary timeout was called. All in the room were in agreement. We began by placing the arm in 10 pounds of longitudinal traction with the arm abducted 45 degrees and forward flexed 30 degrees. Posterior viewing portal was created followed by anterior working portal under direct visualization. We then performed a diagnostic arthroscopy revealing the above findings. Once diagnostic arthroscopy was completed, the cool cut cautery wand was introduced through the anterior working portal. A synovectomy was performed of synovitis in the areas of the superior and anterior shoulder. We then used the cut feature of the cautery wand to release the capsule superiorly, taking care to avoid the rotator cuff musculature. This was continued around anteriorly, cutting through the superior glenohumeral ligament, middle glenohumeral ligament and all the way down to approximately the 5 o'clock position. I elected not to go any further inferior in order to avoid damage to the axillary nerve. Of note, the biceps tendon was pulled into the shoulder and it had normal appearance throughout. Next, the camera was switched to the anterior portal and the cannula was switched to the posterior portal. The cautery wand was used to perform a synovectomy of the posterior gutter down to the inferior axillary pouch. We then used the cut feature to continue the capsular release superiorly along the posterior aspect of the shoulder all the way down to the 7 o'clock position exposing the underlying posterior rotator cuff musculature. Again, we stayed well away from the axillary nerve at the 6 o'clock position. Next, the camera was moved into the subacromial space. A significant amount of subacromial bursitis was encountered. This was resected with the shaver. The electrocautery was then used to expose the undersurface of the acromion. She had a really minimal subacromial spur and so I therefore elected to not kwan down the acromion in order to decrease postoperative scarring and facilitate early rehabilitation. At this point, the rotator cuff was inspected very carefully. There were no full thickness tears, although there was some thickening consistent with her preoperative MRI. Therefore, no repair was indicated. I then took the arm out of traction and performed a manipulation under anesthesia. A small pop was felt during the manipulation, consistent with release of the remaining band of inferior capsule. Repeat exam under anesthesia then showed 160 degrees of abduction, 175 degrees of forward elevation, 75 degrees of external rotation with the arm at the side and with the arm abducted to 90 degrees, she could get 100 degrees of external rotation and 65 degrees of internal rotation. A spinal needle was then placed into the subacromial space. The arthroscopic portals were closed with inverted 3-0 Monocryl. We then injected 80 mg of Depo-Medrol as well as 9 mL of 0.5% Marcaine into the subacromial space for postoperative pain control as well as to reduce the chance of scarring. The patient was then placed into a simple sling and awoken from anesthesia. She was transferred to the recovery room in stable condition. POSTOPERATIVE COURSE: The patient will be discharged home from the recovery room. She will return to clinic tomorrow to start physical therapy as well as to review her postoperative restrictions. She will start a full active range of motion of her shoulder as tolerated. We will maintain a lifting restriction on her for approximately 4 weeks after surgery. She will be on aspirin for DVT prophylaxis. I attest to the content of the Intraoperative Record and any orders documented therein. Any exceptions are noted below. [facility]
== END | disposition home or self-care (01) ==
LOC: X.SURG 07:26
PROVIDERS: ATTEND Orthopaedic Surgery
DX: M75.01 Adhesive capsulitis of right shoulder (principal); M65.811 Other synovitis and tenosynovitis, right shoulder; M75.51 Bursitis of right shoulder; S46.011A Strain of muscle(s) and tendon(s) of the rotator cuff of right shoulder, initial encounter; Z98.890 Other specified postprocedural states; Z98.818 Other dental procedure status; Z82.49 Family history of ischemic heart disease and other diseases of the circulatory system; Z80.9 Family history of malignant neoplasm, unspecified; F17.200 Nicotine dependence, unspecified, uncomplicated; X50.0XXA Overexertion from strenuous movement or load, initial encounter

== ENCOUNTER → 2017-12-21 | Outpatient (CLI) | payer OTHER ==
[~2017-12-21] MED LIST changes: -ATROPINE SULFATE 0.1 MG/ML 5ML SYR IV PRN; -BUPIVACAINE/EPINEPHRINE 0.5% MPF 1:200,000 30 ML VIAL ONE; -CEFAZOLIN 2000MG IV PUSH 15 ML IV SCH; -DEXAMETHASONE SOD INJ 4 MG/ML VIAL ONE; -EpINEphrine INJ 1MG/ML AMP 1 MG/ML AMP ONE; -FENTANYL CITRATE INJ 50 MCG/1 ML 2 ML VIAL IV PRN; -FENTANYL CITRATE INJ 50 MCG/1 ML 2 ML VIAL ONE; -GLYCOPYRROLATE INJ 0.2 MG/ML VIAL ONE; -KETOROLAC TROMETHAMINE 30 MG/ML VIAL IV. PRN; -LACTATED RINGER'S 1000ML 1,000 ML IV SCH; -LIDOCAINE HCL 2% 2 ML VIAL (20MG/ML) ONE; -METHYLPREDNISOLONE ACETATE 80 MG/ML VIAL ONE; -MIDAZOLAM HCL 1 MG/ML 2ML VIAL ONE; -MoRPHine SULFATE 2 MG/ML CARP IV PRN; -MoRPHine SULFATE 4 MG/ML 1 ML CARP\\VIAL IV PRN; -NEOSTIGMINE METHYLSULFATE 5 MG/5 ML SYR ONE; -ONDANSETRON INJ 2 MG/ML 2 ML VIAL IV PRN; -ONDANSETRON INJ 2 MG/ML 2 ML VIAL ONE; -OXYCODONE/ACETAMINOPHEN 5-325 TAB PO PRN; -PROPOFOL IV EMULSION 10 MG/ML 20 ML VIAL IV ONE; -ROCURONIUM BROMIDE 10 MG/ML 5 ML VIAL IV ONE; -ROPIVACAINE 0.5% 5 MG/ML 30 ML VIAL ONE; -SODIUM CHLORIDE 0.9% 1000ML 1,000 ML IV SCH
== END | disposition home or self-care (01) ==
LOC: C.PAPS 17:55
PROVIDERS: ATTEND Obstetrics & Gynecology
DX: Z01.411 Encounter for gynecological examination (general) (routine) with abnormal findings (principal)

== ENCOUNTER → 2018-01-31 | Outpatient (CLI) | payer OTHER | END | disposition home or self-care (01) | LOC: C.RDSM 10:50 | PROVIDERS: ATTEND Orthopaedic Surgery | DX: Z98.890 Other specified postprocedural states (principal) ==

== ENCOUNTER → 2018-02-15 | Outpatient (CLI) | payer OTHER | END | disposition home or self-care (01) | LOC: C.LAB 13:00 | PROVIDERS: ATTEND Physician Assistant | DX: N91.2 Amenorrhea, unspecified (principal) ==

== ENCOUNTER 2024-08-22 20:03 | Inpatient (IN) ==
--- NOTE | 2024-08-22 20:15 | Emergency Department Note ---
Impression & Plan Depression, Psychosis, Acute dehydration, Noncompliance with medication regimen ED Provider Note NAME: VIGNESH RODRIGUEZ AGE: 43 SEX: F : 1980 ARRIVES VIA: Law Enforcement Transport INFORMANT: Patient, police patrol lieutenant ED PROVIDER(S): Kunal Le DO CHIEF COMPLAINT: Mental health evaluation HPI: The patient is a 43-year-old female who presented to the emergency department for mental health evaluation. The patient provided very little history. History was obtained from the police patrol lieutenant. The police state that they were asked to go to the patient's home because she was not in contact with her significant other over the course the last several days. The patient self denies any complaints at this time. She denies having any chest pain or difficulty breathing. She states that she has not been eating or drinking. She states that she has not been compliant with her outpatient medication regimen. She is denying having any suicidal homicidal ideation. When the police patrol lieutenant asked her if she wanted to talk to someone she did say yes which is why she brought her to the emergency department. ROS: See above HPI for pertinent positives & negatives. A total of 10 systems reviewed and were otherwise negative. PAST MEDICAL HISTORY: See Below PAST SURGICAL HISTORY: See Below FAMILY HISTORY: See Below SOCIAL HISTORY: See Below HOME MEDICATIONS: See Below ALLERGIES: See Below VITALS: See Below PHYSICAL EXAMINATION: GENERAL: The patient is awake. She is slow to answer questions. EYES: The conjunctivae are clear. The pupils are round and reactive. EARS, NOSE, MOUTH AND THROAT: The nose is without any evidence of any deformity. NECK: The neck is nontender and supple. RESPIRATORY: Normal respiratory effort is noted there is no evidence of wheezing rhonchi or rales CARDIOVASCULAR: Regular rate and rhythm noted there no murmurs rubs or gallops normal S1 normal S2. GASTROINTESTINAL: The abdomen is soft. Abdomen is nontender. MUSCULOSKELETAL/EXTREMITIES: There is no evidence of gross deformity full range of motion is noted in the hips and shoulders. SKIN: There is no obvious evidence of any rash. There are no petechiae, pallor or cyanosis noted. NEUROLOGIC: Patient is awake alert and oriented x3 PSYCH: The patient's affect is flat. The patient is guarded. The patient makes poor eye contact mostly evaluation. The patient is currently denying any suicidal homicidal ideation. MEDICAL DECISION MAKING: The patient is a 43-year-old female who presented to the emergency department with police. Patient has a history of mental health disorder. She also has a history of drug abuse. The police were called because of a wellness check. When they went to evaluate the patient she appeared to be very flat. She did not have any suicidal homicidal ideation. The patient was evaluated by the mental health case management specialist. The patient was reevaluated multiple times. She was medically cleared although she appears to be dehydrated by her laboratory studies. She was given p.o. intake and vital signs were improved. The patient was evaluated by the mental health case management specialist. She was felt to be a good candidate for inpatient management. She was referred to [facility] She was evaluated by the delegate from [facility]. and ultimately was felt to be a good candidate for inpatient treatment at our facility. 201 was signed by myself. Triage Nursing notes reviewed. Prior medical records reviewed Vital Signs: reviewed and remarkable for no significant abnormalities Differential diagnosis: Mood disorder, infection, hypoglycemia, electrolyte abnormalities, cardiac sources, intracerebral event, toxicologic, trauma, neurologic, as well as other pathologies. ER treatment provided: See below Diagnostics interpreted by me: ECG: none Laboratory studies: As stated above and show below. Imaging studies: See below. Radiographic imaging was reviewed by myself Consultation(s): I discussed this case with the emergency department mental health case management specialist Past Med/Surg History Problem List (Updated 08/23/24 @ 00:31 by Kunal Le DO) Noncompliance with medication regimen (Acute) Acute dehydration (Acute) Psychosis (Acute) Depression (Acute) Weight gain (Acute) Hemorrhoids (Chronic) History of drug abuse heroin Depression (Acute) Anxiety Encounter for gynecological examination with abnormal finding Leiomyoma of uterus IUD (intrauterine device) in place Mirena July 2018 Medical History Uterine fibroid Alcohol overdose Tylenol overdose Dextromethorphan overdose Major depression PID (acute pelvic inflammatory disease) Kidney stone Surgical History History of delivery Status post rotator cuff repair History of arthroscopy of right shoulder Social History Smoking Status: Current every day smoker Tobacco Type: Cigarettes packs per day: 0.5; Do You Dip or Chew Tobacco: No; Hx Alcohol Use: No Hx Substance Use: No Preferred Language: Faroese marital status: Single current occupational status: employed Feels Safe at Home: Yes Gender Identity: Female Allergies Allergies Allergy/AdvReac Type Severity Reaction Status Date / Time No Known Allergies Allergy Unverified 04/28/20 10:52 Home Meds Home Medications Medication Instructions Recorded Confirmed levonorgestrel 21 mcg/24 hr (up to 20 mcg intrauterine UNKNOWN 07/02/19 08/22/24 8 years) 52 mg intrauterine device (Mirena) aripiprazole 20 mg tablet 20 mg PO DAILY 08/22/24 08/22/24 lamotrigine 200 mg tablet 200 mg PO DAILY 08/22/24 08/22/24 trazodone 100 mg tablet 100 mg PO PM 08/22/24 08/22/24 Results & Data (ED) Vital Signs Vital Signs - 24 hr 08/22/24 20:36 08/22/24 20:48 08/22/24 22:09 Temperature 36.4 C L 36.4 C L Temperature Source Oral Oral Pulse Rate 123 H Pulse Rate [Finger] 123 H 110 H Respiratory Rate 24 24 20 Respiratory Effort / Characteristics Non-Labored Spontaneous Respiratory Depth Normal Respiratory Pattern Regular Blood Pressure 138/87 Blood Pressure [Right Arm] 138/87 113/76 Blood Pressure Mean 104 Blood Pressure Mean [Right Arm] 104 88 Blood Pressure Position [Right Arm] Pulse Oximetry 96 96 99 Oxygen Delivery Method Room Air Room Air Room Air Sepsis Recent Fever Within 48 Hours No Sepsis New/Unexplained Change in Mental Status N/A Sepsis Action Taken by Nursing No Action Required 08/22/24 23:33 Temperature Temperature Source Pulse Rate Pulse Rate [Finger] 115 H Respiratory Rate 18 Respiratory Effort / Characteristics Non-Labored Spontaneous Respiratory Depth Respiratory Pattern Blood Pressure Blood Pressure [Right Arm] 109/69 Blood Pressure Mean Blood Pressure Mean [Right Arm] 82 Blood Pressure Position [Right Arm] Sitting Pulse Oximetry 100 Oxygen Delivery Method Room Air Sepsis Recent Fever Within 48 Hours Sepsis New/Unexplained Change in Mental Status Sepsis Action Taken by [facility] Medications Current Medication List: was personally reviewed by me Laboratory Data Attestation: I reviewed the patient's lab results. 08/22/24 20:35 08/22/24 20:35 Lab Results 08/22/24 08/22/2424 Range/Units 20:22 20:35 21:48 WBC 11.69 H (4.8-10.8) K/ul RBC 5.23 (4.20-5.40) M/uL Hgb 17.6 H (12.0-16.0) g/dl Hct 49.9 H (37.0-47.0) % MCV 95.4 (80.0-100.0) fL MCH 33.7 (25.0-34.0) pg MCHC 35.3 (32.0-36.0) g/dL RDW Std Deviation 45.2 (36.4-46.3) fL RDW Coeff of Karen 13.0 (11.5-14.5) % Plt Count 503 H (130-400) K/uL MPV 8.7 L (9.4-12.4) fL Immature Gran % (Auto) 1.1 % Neut % (Auto) 64.6 % Lymph % (Auto) 23.4 % [place] % (Auto) 9.9 % Eos % (Auto) 0.5 % Baso % (Auto) 0.5 % Neut # (Auto) 7.54 H (1.40-6.50) K/uL Lymph # (Auto) 2.74 (1.20-3.40) K/uL [place] # (Auto) 1.16 H (0.11-0.59) K/uL Eos # (Auto) 0.06 (0.00-0.50) K/uL Baso # (Auto) 0.06 (0.00-0.20) K/uL Immature Gran # (Auto) 0.13 (0.01-0.20) K/uL VBG pH 7.40 (7.36-7.41) VBG pCO2 43 (38-50) mmHg VBG pO2 32 mmHg VBG HCO3 27 mmol/L VBG O2 Saturation < 60.0 % VBG Base Excess 1.5 mEq/L Sodium 134 L (136-145) mmol/L Potassium 3.8 (3.5-5.1) mmol/L Chloride 100 (98-107) mmol/L Carbon Dioxide 18 L (21-32) mmol/L Anion Gap 16 H (3-11) BUN 28 H (6-23) mg/dl Creatinine 0.77 (0.6-1.2) mg/dl Est Cr Clr Drug Dosing Not Reportable eGFR 98.10 BUN/Creatinine Ratio 36.4 H (10-20) Glucose 132 H (70-99(Fasting)) mg/dl Calcium 9.5 (8.6-10.3) mg/dl Total Bilirubin 1.0 (0.2-1.0) mg/dl AST 30 (13-39) U/L ALT 62 H (7-52) U/L Alkaline Phosphatase 77 (34-104) U/L Total Protein 8.0 (6.0-8.3) gm/dl Albumin 4.7 (3.4-5.0) gm/dl Globulin 3.3 (2.5-4.0) gm/dl Albumin/Globulin Ratio 1.4 (0.9-2) TSH 1.100 (0.300-4.500) uIu/ml HCG, Qual Negative (Negative) Urine Color Dark Yellow Urine Appearance Cloudy A (Clear) Urine pH 5.5 (4.5-7.5) Ur Specific [place] 1.034 H (1.000-1.030) Urine Protein 1+ H (Negative) Urine Glucose (UA) Negative (Negative) Urine Ketones 2+ H (Negative) Urine Blood Negative (Negative) Urine Nitrite Negative (Negative) Urine Bilirubin 2+ H (Negative) Urine Urobilinogen Negative (Negative) Ur Leukocyte Esterase Negative (Negative) Urine WBC (Auto) 0-5 (0-5) /hpf Urine RBC (Auto) 3-5 H (0-2) /hpf U Hyaline Cast (Auto) 0-2 (0-2) /lpf U Epithel Cells (Auto) 11-20 H (0-2) /hpf Urine Bacteria (Auto) 3+ H (None Seen) Salicylates < 3.0 L (3.0-30) mg/dl Urine Opiates Screen Neg (Neg) Ur Methadone, Qual Neg (Neg) Urine Fentanyl Screen Neg (Neg) Acetaminophen < 3 L (10-30) ug/ml Urine Barbiturates Neg (Neg) Ur Phencyclidine (PCP) Neg (Neg) U Amphetamin/Meth Scrn Neg (Neg) MDMA (Ecstasy) Screen Neg (Neg) U Benzodiazepines Scrn Neg (Neg) Ur Cocaine Metabolite Neg (Neg) U Marijuana (THC) Screen Neg (Neg) Ethyl Alcohol mg/dL < 10.0 (<10.0) mg/dl SARS-CoV-2, RNA, NAAT NEGATIVE (NEGATIVE) Imaging Data Attestation: I personally reviewed and interpreted this imaging study as follows: My Impression: CT the brain without contrast was obtained. My interpretation is no intracranial hemorrhage or mass effect, final report pending. Discharge Plan Visit Data Chief Complaint: Mental Health Evaluation Stated Complaint: 301 ED Provider: Kunal Le Discharge Problem: Depression, Psychosis, Acute dehydration, Noncompliance with medication regimen Patient Disposition: Transfer Behavioral Health Fac Forms Stand Alone Forms: My [facility], Suicide Prevention Resources Prescriptions Prescriptions: No Action Mirena 20 mcg/24 hours (5 yrs) 52 mg intrauterine device 20 mcg IU UNKNOWN lamotrigine 200 mg tablet 200 mg PO DAILY trazodone 100 mg tablet 100 mg PO PM aripiprazole 20 mg tablet 20 mg PO DAILY Referrals Referrals: Hernan Dominguez MD [Primary Care Provider] - Discharge Problem: Depression Qualifiers: Depression Type: unspecified Qualified Code(s): F32.A - Depression, unspecified Psychosis Qualifiers: Psychosis type: unspecified psychosis type Qualified Code(s): F29 - Unspecified psychosis not due to a substance or known physiological condition
[2024-08-22 20:44] LABS: Appearance Urine Cloudy (Clear); Bacteria Urine Automated 3+ (None Seen); Bilirubin Urine 2+ (Negative); Blood Urine Negative (Negative); Cast Urine Automated 0-2 /lpf (0-2); Color Urine Dark Yellow; Glucose Urine UA Negative (Negative); Ketones Urine 2+ (Negative); Leukocyte Esterase Urine Negative (Negative); Nitrite Urine Negative (Negative); Protein Urine 1+ (Negative); Specific Gravity Urine 1.034 (1.000-1.030); Urobilinogen Urine Negative (Negative); WBC Urine Automated 0-5 /hpf (0-5); pH Urine 5.5 (4.5-7.5)
[2024-08-22 21:13] LABS: Alanine Aminotransferase 62 U/L (7-52); Albumin Globulin Ratio 1.4 (0.9-2); Albumin Level 4.7 gm/dl (3.4-5.0); Alkaline Phosphatase 77 U/L (34-104); Anion Gap 16 (3-11); Aspartate Aminotransferase 30 U/L (13-39); BUN Creatinine Ratio 36.4 (10-20); Blood Urea Nitrogen 28 mg/dl (6-23); Calcium 9.5 mg/dl (8.6-10.3); Carbon Dioxide 18 mmol/L (21-32); Chloride 100 mmol/L (98-107); Globulin 3.3 gm/dl (2.5-4.0); Glucose 132 mg/dl (70-99(Fasting)); Potassium 3.8 mmol/L (3.5-5.1); Sodium 134 mmol/L (136-145)
[2024-08-22 21:18] LABS: Amphetamines+Metham, Urine Neg (Neg); Barbiturates, Urine Neg (Neg); Benzodiazepine, Urine Neg (Neg); Cocaine, Urine Neg (Neg); Fentanyl, Urine Neg (Neg); MDMA (Ecstacy), Urine Neg (Neg); Marijuana, Urine Neg (Neg); Methadone, Urine Neg (Neg); Opiate, Urine Neg (Neg); Phencyclidine, Urine Neg (Neg)
[2024-08-22 21:18] LABS: Pregnancy Test, Serum Negative (Negative)
[2024-08-22 21:25] LABS: Acetaminophen < 3 ug/ml (10-30); Salicylate < 3.0 mg/dl (3.0-30)
[2024-08-22 21:31] LABS: Basophils # (auto) 0.06 K/uL (0.00-0.20); Basophils % (auto) 0.5 %; Eosinophils # (auto) 0.06 K/uL (0.00-0.50); Eosinophils % (auto) 0.5 %; Hematocrit (blood only) 49.9 % (37.0-47.0); Hemoglobin 17.6 g/dl (12.0-16.0); Immature Granulocytes # (auto) 0.13 K/uL (0.01-0.20); Immature Granulocytes % (auto) 1.1 %; Lymphocytes # (auto) 2.74 K/uL (1.20-3.40); Lymphocytes % (auto) 23.4 %; Mean Corpuscular Hemoglobin 33.7 pg (25.0-34.0); Mean Corpuscular Hgb Conc 35.3 g/dL (32.0-36.0); Mean Corpuscular Volume 95.4 fL (80.0-100.0); Mean Platelet Volume 8.7 fL (9.4-12.4); Monocytes # (auto) 1.16 K/uL (0.11-0.59); Monocytes % (auto) 9.9 %; Neutrophils # (auto) 7.54 K/uL (1.40-6.50); Neutrophils % (auto) 64.6 %; Platelet Count 503 K/uL (130-400); RDW Standard Deviation 45.2 fL (36.4-46.3); Red Blood Count 5.23 M/uL (4.20-5.40); White Blood Count 11.69 K/ul (4.8-10.8)
[2024-08-22 21:58] LABS: Base Excess VBG 1.5 mEq/L; HCO3 VBG 27 mmol/L; Oxygen Saturation VBG < 60.0 %; PCO2 VBG 43 mmHg (38-50); PO2 VBG 32 mmHg
--- OUTSIDE RECORDS SUMMARY | 2024-08-23 00:31 | External Medical Summary | Summary of Care ---
Author Name Unknown Organization [facility] Address [address] [address] Phone [phone] Care Team Providers Care Actuarial Manager Name Role Phone Alberto ODOM MD, Hernan Rocha Primary Care Provider [phone] Reason for Visit * Reason Onset Date Comments Medication Refill 05/22/2024 Encounter Details Date Type Department Care Team (Late st Contact Info) Description 05/22/2024 Refill Psychiatry, [facility] [address] [place] [id number] Bushra Bro CRNP [address] [place] [phone] Allergies No known active allergiesdocumented as of this encounter (statuses as of 06/21/2024) Medications Medication Sig Dispensed Refills Start Date End Date Status Fluticasone Propionate 50 MCG/ACT Nasal Suspension (Flonase) Administer 2 Sprays into each nostril in the morning. opp hand. 16 g 6 02/04/2023 Active Ondansetron HCl 4 MG Oral TabletIndications:N ausea and vomiting, unspecified vomiting type Take 1 Tablet by mouth every 6 hours as needed for Nausea. 30 Tablet 08/02/2023 Active traZODone HCl 100 MG Oral Tablet (Desyrel) Take 1 Tablet by mouth at bedtime. 90 Tablet 1 11/24/2023 Active Naproxen 500 MG Oral Tablet (Naprosyn)Indicatio ns:Right elbow pain,Lateral epicondylitis of right elbow Take 1 Tablet by mouth 2 times a day with morning and evening meals. With food 60 Tablet 1 01/19/2024 Active lamoTRIgine 200 MG Oral Tablet (LaMICtal)Indicatio ns:Bipolar 2 disorder (HCC) Take 1 Tablet by mouth in the morning. 30 Tablet 2 05/14/2024 Active Drysol 20 % External Solution (Aluminum Chloride)Indication s:Generalized hyperhidrosis Apply topically to affected area every night at bedtime. 35 mL 11 05/14/2024 Active ARIPiprazole 20 MG Oral Tablet (Abilify) Take 1 Tablet by mouth in the morning. 30 Tablet 2 05/22/2024 Active ARIPiprazole 20 MG Oral Tablet (Abilify) Take 1 Tablet by mouth in the morning. 30 Tablet 2 02/21/2024 4 Discontinue d(Refill) Hospital, Clinic, or Other Facility Administered Medication Ordered Dose Route Frequency Start Date End Date Status ARIPiprazole ER (Abilify Maintena) IM inj vial 300 mgIndications:Bipolar 2 disorder (HCC) 300 mg IM [id number] 01/20/2024 Active CAM MISCELLANEOUS MEDICATION 300 mgIndications:Bipolar 2 disorder (HCC) 300 mg IM [id number] 01/20/2024 Active documented as of this encounter (statuses as of 06/21/2024) Active Problems Problem Noted Date Diagnosed Date Bipolar 2 disorder 05/14/2024 Food insecurity 10/03/2023 Overview: Per [facility] Protocol Gastro-esophageal reflux disease without esophag itis 03/07/2023 Class 2 severe obesity with serious comorbidity and body mass index (BMI) of 36.0 to 36.9 in adult 02/04/2023 documented as of this encounter (statuses as of 06/21/2024) Immunizations Name Administration Dates Next Due COVID-19 mRNA, LNP-s, No Pre serve, 2-Dose Series ([employer]) 08/26/2021,08/06/2021 Hepatitis B, 0-19 yrs 11/26/2010 Hepatitis B, 20+ yrs 11/26/2010,07/28/2010,05/26 Pneumococcal Conjugate Vacci ne, 20-valent ([id number]) 06/10/2022 Pneumococcal Polysaccharide PPV23 (Pneumovax) 07/14/2020 Seasonal Influenza, PF, 6 M & above, IM , (FluLaval or Fluzone) 11/24/2021,12/23/2020,08/03/2018 TDAP (age 10 and older)(Boostrix) 07/14/2020 documented as of this encounter Social History Tobacco Use Types Packs/Day Years Used Date Smoking Tobacco: Every Day Cigarettes Smokeless Tobacco: Never Comments:"Only smoke when I' m at work. Most half a pack a day if even that." Alcohol Use Standard Drinks/Week Comments Yes 0 (1 standard drink = 0.6 oz pur e alcohol) rare PHQ-2 Answer Date Recorded PHQ Adult Total Score 19 01/19/2024 Hunger Vital Sign Answer Date Recorded Within the past 12 months, y ou worried that your food would run out before you got the money to buy more. Sometimes true Within the past 12 months, t he food you bought just didn't last and you didn't have money to get more. Often true 05/2024 Childcare Answer Date Recorded Do you feel overwhelmed with taking care of a child, family member or friend? No 04/30/2024 Does your family need help f inding childcare? (Household - for ages 0-17 years) Not on file 04/30/2024 Clothing Answer Date Recorded Have you been unable to get clothing when it was really needed? No 04/30/2024 Is your family able to get c lothes or diapers when needed? (Household - for ages 0-17 years) Not on file 04/30/2024 Personal Safety Answer Date Recorded Do you feel unsafe or have concerns for your saf ety? No 04/30/2024 Do you have concerns for you r family's safety? (Household - for ages 0-17 years) Not on file 04/30/2024 Utilities Answer Date Recorded Do you have trouble paying y our heating, water, or electric bill? Yes 04/30/2024 Is your family able to pay t he heat, water, or electric bill? (Household - for ages 0-17 years) Not on file 04/30/2024 Does your family have access to good internet? (Household - for ages 0-17 years) Not on file 04/30/2024 Employment Status Answer Date Recorded Are you unemployed or without regular income? No 04/30/2024 Does the household have a re gular source of income? (Household - for ages 0-17 years) Not on file 04/30/2024 Social Connections Answer Date Recorded How often do you feel lonely or isolated from those around you? Sometimes 04/30/2024 Financial Resource Strain Answer Date R ecorded Do you have any trouble payi ng for your medications, or do you think you might in the future? No 04/30/2024 Does your family have troubl e paying for medicine? (Household - for ages 0-17 years) Not on file 04/30/2024 Transportation Needs Answer Date Record ed READ ONLY Do you have troubl e getting a ride to medical visits or work? Often True 04/30/2024 Does your family have a hard time getting a ride to doctors visits? (Household - for ages 0-17 years) Not on file 04/30/2024 Has lack of transportation k ept you from medical appointments, meetings, work, or from getting things needed for daily living? Check all that apply. No 04/30/2024 Do you (or your family) have trouble finding or paying for a ride (transportation)? (Household - for ages 0-17 years) Not on file 04/30/2024 Housing Stability Answer Date Recorded Do you currently live in a s helter or have no steady place to sleep at night? No 04/30/2024 READ ONLY Do you think you a re at risk of becoming homeless? No 04/30/2024 Does your family worry about paying for your home or becoming homeless? (Household - for ages 0-17 years) Not on file 0 04/30/2024 Are you homeless or worried that you might be in the future? No 04/30/2024 Are you (or your family) petr eless or worried that you might be in the future? (Household - for ages 0-17 years) Not on file Food Insecurity Answer Date Recorded Do you need food for this week? Yes 04/30/2024 Are you able to get enough f ood for your family? (Household - for ages 0-17 years) Not on file 04/30/2024 Does your family need food t his week? (Household - for ages 0-17 years) Not on file 04/30/2024 Do you always have enough fo od for your family? (Household - for ages 0-17 years) Not on file 04/30/2024 Sex and Gender Information Value Date Recorded Sex Assigned at Female 09/22/2023 7:30 PM EST Gender Identity Female 09/22/2023 7:30 PM EST Sexual Orientation Straight 09/22/2023 7: 30 PM EST Job Start Date Occupation Industry Not on file Not on file Not on file documented as of this encounter Miscellaneous Notes * Telephone Encounter - Lottie Joshi OSA - 06/21/2024 1:23 PM EDT Error * Telephone Encounter - Bushra Bro CRNP - 05/22/2024 4:25 PM EDT Needs followup appt * Telephone Encounter - Bushra Bro CRNP - 05/22/2024 4:25 PM EDTSigned Prescriptions: Disp Refills ARIPiprazole 20 MG Oral Tablet (Abilify) 30 Tab*2 Sig: Take 1 Tablet by mouth in the morning. Authorizing Provider: BUSHRA BRO * Telephone Encounter - Ashwini Rivas LPN - 05/22/2024 11:20 AM EDT Pharmacy requesting refill on Abilify. Medication was last filled on 02/21/2024 with 2 refills. Patient last seen on 02/21/2024 with return appointment scheduled for NONE. Patient had 2 cancelled appointments and 0 NO SHOW appointments. documented in this encounter Plan of Treatment Upcoming Encounters Date Type Department Care Team (Marcos st Contact Info) Description 08/10/2024 2:40 PM EDT Telemedicine Nutrition & Weight Management, [place] [address] [place] [address] Rach River RDN [address], [place] [id number] 08/29/2024 8:40 AM EST Telemedicine Nutrition & Weight Management, [place] [address], [place] [id number] Lindy Bains MD [address], [place] [id number] Scheduled Procedures Name Priority Associated Diagnoses Date/Ti me COLONOSCOPY FLEXIBLE PROXIMAL DIAGNOSTIC Recall History of colon polyps Health Maintenance Due Date Last Done Comments COVID-19 Vaccine ( season) 2023 08/26/2021, 08/06/2021 Influenza Vaccine (FLU shot) (#1) 2024 11/24/2021, 12/23/2020, 08/03/2018 Mammogram 09/26/2024 09/26/2023, 12/0 01/2023, 08/11/2023, Additional history exists Depression Monitoring 01/18/2025 01/19/2024 Colonoscopy 11/13/2025 11/13/2020, 11/13/2020 Pap Smear 09/30/2026 09/30/2023 Diabetes Screening 05/14/2027 05/14/2024, 0 05/14/2024, 03/07/2023, Additional history exists Cervical Cancer Screening 09/30/2028 HPV/Co-Test 09/30/2028 09/30/2023 Lipid Panel 05/14/2029 05/14/2024, 03/07/2023 DTap/Tdap Vaccines (2 - Td or Tdap) 07/14/2030 07/14/2020 Hepatitis B Vaccine Completed 11/26/2010, 11/26/2010, 07/28/2010, Additional history exists RETIRED - COLONOSCOPY-EVERY 5 YRS AGES 18-100 Discontinued 11/13/2020, 11/13/2020 Pneumococcal Vaccine: Pediatrics (0 to 5 Years) and At-Risk Patients (6 to 64 Years) Completed 06/10/2022, 07/14/2020 HPV (Gardasil) Vaccine Aged Out No lo nger eligible based on patient's age to complete this topic MENINGOCOCCAL (MENACTRA/MENVEO) Aged Out No longer eligible based on patient's age to complete this topic documented as of this encounter Medical Devices Not on filedocumented as of this encounter Care Teams Actuarial Manager Relationship Specialty Start Date End Date Hernan Dominguez III, MD [address] [place] [place] [address] PCP - General Family Medicine 06/05/20 documented as of this encounter
--- OUTSIDE RECORDS SUMMARY | 2024-08-23 00:31 | External Medical Summary | Summary of Care ---
Author Name Unknown Organization [facility] Address [address] [facility] [place] [address] Phone [phone] Care Team Providers Care Coke Handling Supervisor Name Role Phone Alberto ODOM MD, Hernan Rocha Primary Care Provider [phone] Reason for Visit * Reason Onset Date Comments Medication Refill 05/22/2024 Encounter Details Date Type Department Care Team (Late st Contact Info) Description 05/22/2024 Refill Psychiatry, [facility] [address] [place] [address] Bushra Bro CRNP [address] [place] [address] Allergies No known active allergiesdocumented as of this encounter (statuses as of 05/22/2024) Medications Medication Sig Dispensed Refills Start Date [...] in the morning. 30 Tablet 2 02/21/2024 Discontinue d(Refill) Hospital, Clinic, or Other Facility Administered Medication Ordered Dose Route Frequency Start Date End Date Status ARIPiprazole ER (Abilify Maintena) IM inj vial 300 mgIndications:Bipolar 2 disorder (HCC) 300 mg IM [id number] 01/20/2024 Active CAM MISCELLANEOUS MEDICATION 300 mgIndications:Bipolar 2 disorder (HCC) 300 mg IM [id number] 01/20/2024 Active documented as of this encounter (statuses as of 05/22/2024) Active Problems Problem Noted Date Diagnosed Date Bipolar 2 disorder 05/14/2024 Food insecurity 10/03/2023 Overview: Per [facility] Protocol Gastro-esophageal reflux disease without esophag itis 03/07/2023 Class 2 severe obesity with serious comorbidity and body mass index (BMI) of 36.0 to 36.9 in adult 02/04/2023 documented as of this encounter (statuses as of 05/22/2024) Immunizations Name Administration Dates Next Due COVID-19 mRNA, LNP-s, No Pre serve, 2-Dose Series (Zaelab) 08/26/2021,08/06/2021 Hepatitis B, 0-19 yrs 11/26/2010 Hepatitis B, 20+ yrs 11/26/2010,07/28/2010,05/26 Pneumococcal Conjugate Vacci ne, 20-valent ([id number]) 06/10/2022 Pneumococcal Polysaccharide PPV23 (Pneumovax) 07/14/2020 Seasonal [...] encounter Miscellaneous Notes * Telephone Encounter - Bushra Bro CRNP [...] Upcoming Encounters Date Type Department Care Team (Late st Contact Info) Description 08/10/2024 2:40 PM EDT Telemedicine Nutrition & Weight Management, [place] [address] [place] [address] Rach River RDN [address] [place] [address] 08/29/2024 8:40 AM EST Telemedicine Nutrition & Weight Management, [place] [address] [place], [place] [id number] Lindy Bains MD [address], [place] [id number] Scheduled Procedures Name Priority Associated Diagnoses Date/Ti [...] 09/30/2028 09/30/2023 Lipid Panel 05/14/2029 05/14/2024, 03/07/2023 DTaP,Tdap,and Td Vaccines (2 - Td or Tdap) 07/14/2030 07/14/2020 Hepatitis B Vaccine Completed 11/26/2010, 11/26/2010, 07/28/2010, Additional history exists RETIRED - COLONOSCOPY-EVERY 5 YRS AGES 18-100 Discontinued 11/13/2020, 11/13/2020 Pneumococcal Vaccine: Pediatrics (0 to 5 Years) and At-Risk Patients (6 to 64 Years) Completed 06/10/2022, 07/14/2020 Hepatitis C Screening Completed 03/07/2023 , 03/07/2023, 03/07/2023 HPV (Gardasil) Vaccine Aged Out No lo nger eligible based on patient's age to complete this topic MENINGOCOCCAL (MENACTRA/MENVEO) Aged Out No longer eligible based on patient's age to complete this topic documented as of this encounter Medical Devices Not on filedocumented as of this encounter Care Teams Coke Handling Supervisor Relationship Specialty Start Date End Date Hernan Dominguez III, MD [address] [place] [address] PCP - General Family Medicine 06/05/20 documented as of this encounter
--- OUTSIDE RECORDS SUMMARY | 2024-08-23 00:31 | External Medical Summary | Summary of Care ---
Author Name Unknown Organization [facility] Address [address] [place] [address] Phone [phone] Care Team Providers Care Global Human Resources Director Name Role Phone Alberto ODOM MD, Hernan Rocha Primary Care Provider [phone] Reason for Visit * Reason Comments Outpatient Testing Encounter Details Date Type Department Care Team (Late st Contact Info) Description 08/13/2024 1:50 PM EDT Laboratory Laboratory [facility] [place] [address] [place] [id number] [place], [address] [place] [address] UTI symptoms Allergies No known active allergiesdocumented as of this encounter (statuses as of 08/13/2024) Medications Medication Sig Dispensed Refills Start Date End Date Status Fluticasone Propionate 50 MCG/ACT Nasal Suspension (Flonase) Administer 2 Sprays into each nostril in the morning. opp hand. 16 g 6 02/04/2023 Active Ondansetron HCl 4 MG Oral TabletIndications:Na usea and vomiting, unspecified vomiting type Take 1 Tablet by mouth every 6 hours as needed for Nausea. 30 Tablet 08/02/2023 Active traZODone HCl 100 MG Oral Tablet (Desyrel) Take 1 Tablet by mouth at bedtime. 90 Tablet 1 11/24/2023 Active Naproxen 500 MG Oral Tablet (Naprosyn)Indication s:Right elbow pain,Lateral epicondylitis of right elbow Take 1 Tablet by mouth 2 times a day with morning and evening meals. With food 60 Tablet 1 01/19/2024 Active lamoTRIgine 200 MG Oral Tablet (LaMICtal)Indication s:Bipolar 2 disorder (HCC) Take 1 Tablet by mouth in the morning. 30 Tablet 2 05/14/2024 Active Drysol 20 % External Solution (Aluminum Chloride)Indications :Generalized hyperhidrosis Apply topically to affected area every night at bedtime. 35 mL 11 05/14/2024 Active ARIPiprazole 20 MG Oral Tablet (Abilify) Take 1 Tablet by mouth in the morning. 30 Tablet 2 05/22/2024 Active Cefdinir 300 MG Oral Capsule (Omnicef) Take 1 Capsule by mouth in the morning and 1 Capsule before bedtime. Do all this for 10 days. 20 Capsule 08/10/2024 08/20/2024 Active predniSONE 20 MG Oral Tablet (Deltasone) Take 2 Tablets by mouth in the morning for 5 days. 10 Tablet 08/10/2024 08/15/2024 Active Hospital, Clinic, or Other Facility Administered Medication Ordered Dose Route Frequency Start Date End Date Status ARIPiprazole ER (Abilify Maintena) IM inj vial 300 mgIndications:Bipolar 2 disorder (HCC) 300 mg IM [id number] 01/20/2024 Active CAM MISCELLANEOUS MEDICATION 300 mgIndications:Bipolar 2 disorder (HCC) 300 mg IM [id number] 01/20/2024 Active documented as of this encounter (statuses as of 08/13/2024) Active Problems Problem Noted Date Diagnosed Date Bipolar 2 disorder 05/14/2024 Food insecurity 10/03/2023 Overview: Per [facility] Protocol Gastro-esophageal reflux disease without esophag itis 03/07/2023 Class 2 severe obesity with serious comorbidity and body mass index (BMI) of 36.0 to 36.9 in adult 02/04/2023 documented as of this encounter (statuses as of 08/13/2024) Immunizations Name Administration Dates Next Due COVID-19 mRNA, LNP-s, No Pre serve, 2-Dose Series (YUPPTV) 08/26/2021,08/06/2021 Hepatitis B, 0-19 yrs 11/26/2010 Hepatitis B, 20+ yrs 11/26/2010,07/28/2010,05/26 Pneumococcal Conjugate Vacci ne, 20-valent ([id number]) 06/10/2022 Pneumococcal Polysaccharide PPV23 (Pneumovax) 07/14/2020 Seasonal [...] on file documented as of this encounter Plan of Treatment Pending Results Name Type Priority Associated Diagnoses Date /Time URINALYSIS, REFLEX TO CULTURE (NOT FOR NEUTROPENIC PATIENTS) Lab Routine UTI symptoms 08/13/2024 1:49 PM EDT URINALYSIS, REFLEX TO CULTURE (CUP ONLY) Lab Routine UTI symptoms 08/13/2024 1:49 PM EDT URINALYSIS, REFLEX TO CULTURE Lab Routine UTI symptoms 08/13/2024 1:49 PM EDT Scheduled Procedures Name Priority Associated Diagnoses Date/Ti me COLONOSCOPY FLEXIBLE PROXIMAL DIAGNOSTIC Recall History of colon polyps Health Maintenance Due Date Last Done Comments COVID-19 Vaccine ( season) 2024 08/26/2021, 08/06/2021 Influenza Vaccine (FLU shot) (#1) 2024 11/24/2021, 12/23/2020, 08/03/2018 Mammogram 09/26/2024 09/26/2023, 12/01/2023, 08/11/2023, Additional history exists Depression Monitoring 01/18/2025 [...] Not on filedocumented as of this encounter Visit Diagnoses Diagnosis UTI symptoms Other symptoms involving urinary system documented in this encounter Care Teams Global Human Resources Director Relationship Specialty Start Date End Date Hernan Dominguez III, MD [address] [place] [address] PCP - General Family Medicine 06/05/20 documented as of this encounter
--- OUTSIDE RECORDS SUMMARY | 2024-08-23 00:31 | External Medical Summary | Summary of Care ---
Author Name Unknown Organization [facility] Address [address] [place] [address] Phone [phone] Care Team Providers Care Brush Holder Inspector Name Role Phone Alberto ODOM MD, Hernan Rocha Primary Care Provider [phone] Reason for Visit * Reason Onset Date Comments Precert Denied 07/23/2024 Wegovlulú Encounter Details Date Type Department Care Team (Late st Contact Info) Description 07/23/2024 Telephone Gastroenterology, [place] [address] [place] [address] Steph Gastelum MD [address] [place] [address] Precert Denied (Wegovy) Allergies No known active allergiesdocumented as of this encounter (statuses as of 07/24/2024) Medications Medication Sig Dispensed Refills Start Date [...] the morning. 30 Tablet 2 05/22/2024 Active Wegovy 1 MG/0.5ML Subcutaneous Solution Auto-injector (Semaglutide-Weight Management) Inject 1 mg under the skin once a week for 28 days. 2 mL 1 06/28/2024 08/24/2024 Active Hospital, Clinic, or Other Facility Administered Medication Ordered Dose Route Frequency Start Date End Date Status ARIPiprazole ER (Abilify Maintena) IM inj vial 300 mgIndications:Bipolar 2 disorder (HCC) 300 mg IM [id number] 01/20/2024 Active CAM MISCELLANEOUS MEDICATION 300 mgIndications:Bipolar 2 disorder (HCC) 300 mg IM [id number] 01/20/2024 Active documented as of this encounter (statuses as of 07/24/2024) Active Problems Problem Noted Date Diagnosed Date Bipolar 2 disorder 05/14/2024 Food insecurity 10/03/2023 Overview: Per [facility] Protocol Gastro-esophageal reflux disease without esophag itis 03/07/2023 Class 2 severe obesity with serious comorbidity and body mass index (BMI) of 36.0 to 36.9 in adult 02/04/2023 documented as of this encounter (statuses as of 07/24/2024) Immunizations Name Administration Dates Next Due COVID-19 mRNA, LNP-s, No Pre serve, 2-Dose Series ([employer]) 08/26/2021,08/06/2021 Hepatitis B, 0-19 yrs 11/26/2010 Hepatitis B, 20+ yrs 11/26/2010,07/28/2010,05/26 Pneumococcal Conjugate Vacci ne, 20-valent ([id number]) 06/10/2022 Pneumococcal Polysaccharide PPV23 (Pneumovax) 07/14/2020 Seasonal [...] encounter Miscellaneous Notes * Telephone Encounter - Tiff Hobson OSA - 07/24/2024 12:06 PM EDT Images from the original note were not included. Approved/Denied: denied Improvement not documented Drug Name and Formulation: Wegovy 1 MG/0.5ML Subcutaneous Solution Auto-injector How Prescribed(directions/sig): WEEKLY Qty and Day Supply: 12/21 Did you receive insurance information from outside the chart? No, received insurance information within the chart Valid auth start date: N/A Valid auth end date: N/A Rx Insurance Info: [facility] [place] Reference #: Bess Prieto Medication Fish Receiver III [facility] ([facility]) P: [phone] F: [phone] 07/24/24,12:04 PM * Telephone Encounter - Saniya De Dios OSA - 07/23/2024 3:05 PM EDT Nutrition & Weight Management Pre-Cert Request Medication/Disease State Information: Medication: Wegovy 1 MG/0.5ML Subcutaneous Solution Auto-injector Diagnosis (including ICD-10): Class 2 obesity E66.9 Treatments tried and failed: NA Office Information: Prescriber: STEPH GASTELUM documented in this encounter Plan of Treatment Upcoming Encounters Date Type Department Care Team ([facility] st Contact Info) Description 08/10/2024 2:40 PM EDT Telemedicine Nutrition & Weight Management, [place] [address] [place] [address] Trisha Villaseñor, [place] [address] [place] [address] Scheduled Procedures Name Priority Associated Diagnoses Date/Ti me COLONOSCOPY FLEXIBLE PROXIMAL DIAGNOSTIC Recall History of colon polyps Health Maintenance Due Date Last Done Comments COVID-19 Vaccine ( season) 2024 08/26/2021, 08/06/2021 Influenza Vaccine (FLU shot) (#1) 2024 11/24/2021, 12/23/2020, 08/03/2018 Mammogram 09/26/2024 09/26/2023, 1201/2023, 08/11/2023, Additional history exists Depression Monitoring 01/18/2025 [...] filedocumented as of this encounter Care Teams Brush Holder Inspector Relationship Specialty Start Date End Date Hernan Dominguez III, MD [address] [place] [address] PCP - General Family Medicine 06/05/20 documented as of this encounter
--- OUTSIDE RECORDS SUMMARY | 2024-08-23 00:31 | External Medical Summary | Summary of Care ---
Author Name Unknown Organization [facility] Address [address] [place] [address] Phone [phone] Care Team Providers Care A Class Lineman Name Role Phone Alberto ODOM MD, Hernan Rocha Primary Care Provider [phone] Reason for Visit * Reason Onset Date Comments Medication Refill 08/17/2024 Encounter Details Date Type Department Care Team (Late st Contact Info) Description 08/17/2024 Refill Psychiatry, [facility] [address] [place] [address] Bushra Bro CRNP [address] [place] [address] Bipolar 2 disorder (HCC) Allergies No known active allergiesdocumented as of this encounter (statuses as of 08/17/2024) Medications Medication Sig Dispensed Refills Start Date End Date Status Fluticasone Propionate 50 MCG/ACT Nasal Suspension (Flonase) Administer 2 Sprays into each nostril in the morning. opp hand. 16 g 6 02/04/2023 Active Ondansetron HCl 4 MG Oral TabletIndications:N ausea and vomiting, unspecified vomiting type Take 1 Tablet by mouth every 6 hours as needed for Nausea. 30 Tablet 08/02/2023 Active Naproxen 500 MG Oral Tablet (Naprosyn)Indicatio ns:Right elbow pain,Lateral epicondylitis of right elbow Take 1 Tablet by mouth 2 times a day with morning and evening meals. With food 60 Tablet 1 01/19/2024 Active Drysol 20 % External Solution (Aluminum Chloride)Indication s:Generalized hyperhidrosis Apply topically to affected area every night at bedtime. 35 mL 11 05/14/2024 Active Cefdinir 300 MG Oral Capsule (Omnicef) Take 1 Capsule by mouth in the morning and 1 Capsule before bedtime. Do all this for 10 days. 20 Capsule 08/10/2024 Active ARIPiprazole 20 MG Oral Tablet (Abilify) Take 1 Tablet by mouth in the morning. 30 Tablet 1 08/17/2024 Active lamoTRIgine 200 MG Oral Tablet (LaMICtal)Indicatio ns:Bipolar 2 disorder (HCC) Take 1 Tablet by mouth in the morning. 30 Tablet 1 08/17/2024 Active traZODone HCl 100 MG Oral Tablet (Desyrel) Take 1 Tablet by mouth at bedtime. 30 Tablet 1 08/17/2024 Active traZODone HCl 100 MG Oral Tablet (Desyrel) Take 1 Tablet by mouth at bedtime. 90 Tablet 1 11/24/2023 Discontinue d(Refill) lamoTRIgine 200 MG Oral Tablet (LaMICtal)Indicatio ns:Bipolar 2 disorder (HCC) Take 1 Tablet by mouth in the morning. 30 Tablet 2 05/14/2024 Discontinue d(Refill) ARIPiprazole 20 MG Oral Tablet (Abilify) Take 1 Tablet by mouth in the morning. 30 Tablet 2 05/22/2024 4 Discontinue d(Refill) Hospital, Clinic, or Other Facility Administered Medication Ordered Dose Route Frequency Start Date End Date Status ARIPiprazole ER (Abilify Maintena) IM inj vial 300 mgIndications:Bipolar 2 disorder (HCC) 300 mg IM [id number] 01/20/2024 Active CAM MISCELLANEOUS MEDICATION 300 mgIndications:Bipolar 2 disorder (HCC) 300 mg IM [id number] 01/20/2024 Active documented as of this encounter (statuses as of 08/17/2024) Active Problems Problem Noted Date Diagnosed Date Bipolar 2 disorder 05/14/2024 Food insecurity 10/03/2023 Overview: Per [facility] Protocol Gastro-esophageal reflux disease without esophag itis 03/07/2023 Class 2 severe obesity with serious comorbidity and body mass index (BMI) of 36.0 to 36.9 in adult 02/04/2023 documented as of this encounter (statuses as of 08/17/2024) Immunizations Name Administration Dates Next Due COVID-19 mRNA, LNP-s, No Pre serve, 2-Dose Series (Pfizer) 08/26/2021,08/06/2021 Hepatitis B, 0-19 yrs 11/26/2010 Hepatitis B, 20+ yrs 11/26/2010,07/28/2010,05/26 Pneumococcal Conjugate Vacci ne, 20-valent ([id number]) 06/10/2022 Pneumococcal Polysaccharide PPV23 (Pneumovax) 07/14/2020 Seasonal [...] Telephone Encounter - Bushra Bro CRNP - 08/17/2024 4:21 PM EDT Needs followup appointment for future refills * Telephone Encounter - Bushra Bro CRNP - 08/17/2024 4:21 PM EDTSigned Prescriptions: Disp Refills ARIPiprazole 20 MG Oral Tablet (Abilify) 30 Tab*1 Sig: Take 1 Tablet by mouth in the morning. Authorizing Provider: BUSHRA BRO lamoTRIgine 200 MG Oral Tablet (LaMICtal) 30 Tab*1 Sig: Take 1 Tablet by mouth in the morning. Authorizing Provider: BUSHRA BRO traZODone HCl 100 MG Oral Tablet (Desyrel) 30 Tab*1 Sig: Take 1 Tablet by mouth at bedtime. Authorizing Provider: BUSHRA BRO * Telephone Encounter - Jessica Trejo LPN - 08/17/2024 10:16 AM EDT Pharmacy requesting refill on Trazodone. Medication was last filled on 05/22/24 with 2 refills. Patient last seen on 02/21/24 with return appointment scheduled for needs appointment. Patient had 2 cancelled appointments and 0 NO SHOW appointments. documented in this encounter Plan of Treatment Scheduled Procedures Name Priority Associated Diagnoses Date/Ti [...] as of this encounter Visit Diagnoses Diagnosis Bipolar 2 disorder (HCC) Other bipolar disorders documented in this encounter Care Teams A Class Lineman Relationship Specialty Start Date End Date Hernan Dominguez III, MD [address] [facility] [place] [address] PCP - General Family Medicine 06/05/20 documented as of this encounter
--- OUTSIDE RECORDS SUMMARY | 2024-08-23 00:31 | External Medical Summary | Summary of Care ---
Author Name Unknown Organization [facility] Address [address] [place] [address] Phone [phone] Care Team Providers Care Radiology Services Manager Name Role Phone Alberto ODOM MD, Hernan Rocha Primary Care Provider [phone] Reason for Visit * Reason Comments Acute Patient reports she has had a bad cough, wheezing in her lungs, has been going on for appx a week and a half. Also believes she may have a UTI, is having urgency, odor. Symptoms started appx a week and a half ago. Encounter Details Date Type Department Care Team (Late st Contact Info) Description 08/10/2024 9:20 AM EDT Telemedicine General Internal Medicine [facility] [address] [facility] [place] [address] Destiny Webb PA-C [address] [facility] [place] [address] Sinobronchitis*; UTI symptoms Allergies No known active allergiesdocumented as of this encounter (statuses as of 08/10/2024) Medications Medication Sig Dispensed Refills Start Date [...] mgIndications:Bipolar 2 disorder (HCC) 300 mg IM [id number] 01/20/2024 Active CAM MISCELLANEOUS MEDICATION 300 mgIndications:Bipolar 2 disorder (HCC) 300 mg IM [id number] 01/20/2024 Active documented as of this encounter (statuses as of 08/10/2024) Active Problems Problem Noted Date Diagnosed Date Bipolar 2 disorder 05/14/2024 Food insecurity 10/03/2023 Overview: Per [facility] Protocol Gastro-esophageal reflux disease without esophag itis 03/07/2023 Class 2 severe obesity with serious comorbidity and body mass index (BMI) of 36.0 to 36.9 in adult 02/04/2023 documented as of this encounter (statuses as of 08/10/2024) Immunizations Name Administration Dates Next Due COVID-19 mRNA, LNP-s, No Pre serve, 2-Dose Series (Pfizer) 08/26/2021,08/06/2021 Hepatitis B, 0-19 yrs 11/26/2010 Hepatitis B, 20+ yrs 11/26/2010,07/28/2010,05/26 Pneumococcal Conjugate Vacci ne, 20-valent ([id number]) 06/10/2022 Pneumococcal Polysaccharide PPV23 (Pneumovax) 07/14/2020 Seasonal [...] on file documented as of this encounter Progress Notes * Destiny Webb PA-C - 08/10/2024 9:31 AM EDT Images from the original note were not included. History of Present Illness Kendra Box is a 43 year old female that presents for Acute (Patient reports she has had a badcough, wheezing in her lungs, has been going on for appx a week and a half. Also believes she may have a UTI, is having urgency, odor. Symptoms started appx a week and a half ago. ) Patient location: HOME. I was in a hospital or clinic location. After connecting through frentingo,patient was verified with two unique identifiers. 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 legal data entry representative) was then informed that this was a Telemedicine visit and being conducted confidentially over secure lines. Methods to assure confidentiality were taken. Patient acknowledged consent and understanding of pr ivacy and security of the Telemedicine visit. The patient agreed to participate. Pt seen today via video with c/o a week and a half history of nasal congestion, wheezing, cough, sinus pressure. Also having urinary symptoms of urgency, frequency, and cloudiness for that same amount of time. Denies fever/chills, sore throat, chest pain, SOB, or NVD. Review of Systems: See HPI for pertinent positives. All other review of systems is negative. Physical Exam There were no vitals filed for this visit. Physical Exam Constitutional: General: She is not in acute distress. Pulmonary: Effort: Pulmonary effort is normal. Neurological: General: No focal deficit present. Mental Status: She is alert. Psychiatric: Mood and Affect: Mood normal. Behavior: Behavior normal. I have reviewed the following results: Assessment and Plan Sinobronchitis Can start pt on Omnicef and start burst of prednisone. Given the report of wheezing would like to evaluate pt in the office next week to eval in person and ensure she is improving. Daily yogurt/probiotic encouraged while taking the antibiotic. UTI symptoms Needs to give urine sample prior to started abx. She voiced understanding. - URINALYSIS, REFLEX TO CULTURE (NOT FOR NEUTROPENIC PATIENTS); Future Wrap-Up Follow Up: Return in about 3 days (around 08/13/2024) for Clinic Visit. | For: Clinic Visit Time: I spent a total of 20-29 minutes (exact time 28 mins) on the date of service in preparation, delivery, and documentation of the care provided to Kendra Box excluding any time spent in the performance of separately billed services. Telemedicine: Patient location: HOME. I was in a hospital or clinic location. After connecting through televideo,patient was verified with two unique identifiers. 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 legal data entry representative) was then informed that this was a Telemedicine visit and being conducted confidentially over secure lines. Methods to assure confidentiality were taken. Patient acknowledged consent and understanding of pr ivacy and security of the Telemedicine visit. The patient agreed to participate. documented in this encounter Nursing Notes * Deidra Back MED ASSIST - 08/10/2024 9:23 AM EDT Chief Complaint Patient presents with Acute Patient reports she has had a bad cough, wheezing in her lungs, has been going on for appx a week and a half. Also believes she may have a UTI, is having urgency, odor. Symptoms started appx a week and a half ago. documented in this encounter Plan of Treatment Scheduled Orders Name Type Priority Associated Diagnoses Orde r Schedule URINALYSIS, REFLEX TO CULTURE (NOT FOR NEUTROPENIC PATIENTS) Lab Routine UTI symptoms Expected: 08/10/2024, Expires: 08/10/2025 Scheduled Procedures Name Priority Associated Diagnoses Date/Ti me COLONOSCOPY FLEXIBLE PROXIMAL DIAGNOSTIC Recall History of colon polyps Health Maintenance Due Date Last Done Comments COVID-19 Vaccine ( season) 2024 08/26/2021, 08/06/2021 Influenza Vaccine (FLU shot) (#1) 2024 11/24/2021, 12/23/2020, 08/03/2018 Mammogram 09/26/2024 09/26/2023, 01/2023, 08/11/2023, Additional history exists Depression Monitoring [...] as of this encounter Visit Diagnoses Diagnosis Sinobronchitis- Primary Unspecified sinusitis (chronic) UTI symptoms Other symptoms involving urinary system documented in this encounter Care Teams Radiology Services Manager Relationship Specialty Start Date End Date Hernan Dominguez III, MD [address] [facility] [place] [address] PCP - General Family Medicine 06/05/20 documented as of this encounter
--- OUTSIDE RECORDS SUMMARY | 2024-08-23 00:31 | External Medical Summary ---
Author Name Unknown Address Unknown Organization K09:[facility]AT[facility] [address] [address] Laboratory Report Ordering Provider Test Date Status MAYELIN AVALOS 08/13/2024 13:49:56 Final Observation Date Value Abnormality Reference (Units ) Status Color of Urine by Auto 08/13/2024 13:49:56 Yellow Light Yellow, Yellow, Dark Yellow Final Clarity, Urine 08/13/2024 13:49:56 Slightly Cloudy Abnormal Clear Final Glucose [Mass/volume] in Urine by Automated test strip 08/13/2024 13:49:56 Negative Negative (mg/dL) Final Bilirubin.total [Presence] in Urine by Automated test strip 08/13/2024 13:49:56 Negative Negative Final Ketones [Mass/volume] in Urine by Automated test strip 08/13/2024 13:49:56 Negative Negative (mg/dL) Final Specific gravity, Urine 08/13/2024 13:49:56 1.020 1.003-1.030 Final Hemoglobin [Presence] in Urine by Automated test strip 08/13/2024 13:49:56 Negative Negative Final pH, Urine 08/13/2024 13:49:56 7.0 5.0-7.5 (Units) Final Protein [Mass/volume] in Urine by Automated test strip 08/13/2024 13:49:56 Negative Negative (mg/dL) Final Urobilinogen [Mass/volume] in Urine by Automated test strip 08/13/2024 13:49:56 0.2 0.2, 1.0 (mg/dL) Final Nitrite [Presence] in Urine by Automated test strip 08/13/2024 13:49:56 Negative Negative Final Leukocyte esterase [Presence] in Urine by Automated test strip 08/13/2024 13:49:56 Trace Abnormal Negative Final RBC, Urine 08/13/2024 13:49:56 0-2 0-2 (/HPF) Final WBC, Urine 08/13/2024 13:49:56 10-19 Abnormal 0-2 (/HPF) Final Bacteria [#/area] in Urine sediment by Microscopy high power field 08/13/2024 13:49:56 101-150 Abnormal 0-25 (/HPF) Final CULTURE, URINE - [facility] 08/13/2024 13:49:56 Final Quantitative urine culture t o be performed Performing Location [facility] [place] [address] [place] [address]
--- OUTSIDE RECORDS SUMMARY | 2024-08-23 00:31 | External Medical Summary | Summary of Care ---
Author Name Unknown Organization [facility] Address [address] [place] [address] Phone [phone] Care Team Providers Care Child Welfare Worker Name Role Phone Alberto ODOM MD, Hernan Rocha Primary Care Provider [phone] Reason for Visit * Reason Onset Date Comments Medication Refill 06/21/2024 Encounter Details Date Type Department Care Team (Late st Contact Info) Description 06/21/2024 Refill Nutrition & Weight Management, [place] [address], [place] [phone] Steph Gastelum MD [address], [place] [phone] Allergies No known active allergiesdocumented as of this encounter (statuses as of 06/28/2024) Medications Medication Sig Dispensed Refills Start Date [...] for 28 days. 2 mL 1 06/28/2024 Active Wegovy 0.5 MG/0.5ML Subcutaneous Solution Auto-injector (Semaglutide-Weight Management) Inject 0.5 mg under the skin once a week for 28 days. 2 mL 1 06/20/2024 Discontinue d(Medicatio n/Dose Changed) Hospital, Clinic, or Other Facility Administered Medication Ordered Dose Route Frequency Start Date End Date Status ARIPiprazole ER (Abilify Maintena) IM inj vial 300 mgIndications:Bipolar 2 disorder (HCC) 300 mg IM [id number] 01/20/2024 Active CAM MISCELLANEOUS MEDICATION 300 mgIndications:Bipolar 2 disorder (HCC) 300 mg IM [id number] 01/20/2024 Active documented as of this encounter (statuses as of 06/28/2024) Active Problems Problem Noted Date Diagnosed Date Bipolar 2 disorder 05/14/2024 Food insecurity 10/03/2023 Overview: Per [facility] Protocol Gastro-esophageal reflux disease without esophag itis 03/07/2023 Class 2 severe obesity with serious comorbidity and body mass index (BMI) of 36.0 to 36.9 in adult 02/04/2023 documented as of this encounter (statuses as of 06/28/2024) Immunizations Name Administration Dates Next Due COVID-19 mRNA, LNP-s, No Pre serve, 2-Dose Series (Pfizer) 08/26/2021,08/06/2021 Hepatitis B, 0-19 yrs 11/26/2010 Hepatitis B, 20+ yrs 11/26/2010,07/28/2010,05/26 Pneumococcal Conjugate Vacci ne, 20-valent ([id number]) 06/10/2022 Pneumococcal Polysaccharide PPV23 (Pneumovax) 07/14/2020 Seasonal [...] encounter Miscellaneous Notes * Telephone Encounter - Steph Gastelum MD - 06/28/2024 9:14 AM EDT Signed Prescriptions: Disp Refills Wegovy 1 MG/0.5ML Subcutaneous Solution Au*2 mL 1 Sig: Inject 1 mg under the skin once a week for 28 days.Authorizing Provider: STEPH GASTELUM * Telephone Encounter - Melodie Hunt LPN - 06/21/2024 1:48 PM EDT 0.5mg wegovy sent yesterday. Pt has not yet picked up. Requesting increase. Pt weight stalled. On 0.5mg dose x several months. documented in this encounter Plan of Treatment Upcoming Encounters Date Type Department Care Team (Late st Contact Info) Description 08/10/2024 2:40 PM EDT Telemedicine Nutrition & Weight Management, [place] [address] [phone] Rach River RDN [address] [place] [address] 08/29/2024 8:40 AM EST Telemedicine Nutrition & Weight Management, [place] [address], [place] [phone] Steph Gastelum MD [address], [place] [phone] Scheduled Procedures Name Priority Associated Diagnoses Date/Ti [...] filedocumented as of this encounter Care Teams Child Welfare Worker Relationship Specialty Start Date End Date Hernan Dominguez III, MD [address] [facility] [place] [address] PCP - General Family Medicine 06/05/20 documented as of this encounter
--- OUTSIDE RECORDS SUMMARY | 2024-08-23 00:31 | External Medical Summary | Summary of Care ---
Author Name Unknown Organization [facility] Address [address] [place] [address] Phone [phone] Care Team Providers Care Tool Technician Name Role Phone Alberto ODOM MD, Hernan Rocha Primary Care Provider [phone] Reason for Visit * Reason Onset Date Comments Advice 03/22/2024 Encounter Details Date Type Department Care Team (Late st Contact Info) Description 03/22/2024 Telephone Gastroenterology, [place] [address] [place] [address] Lindy Bains MD [address] [place] [address] Advice Allergies No known active allergiesdocumented as of [...] 01/19/2024 Active lamoTRIgine 200 MG Oral Tablet (LaMICtal) Take 1 Tablet by mouth in the morning. 30 Tablet 2 01/19/2024 4 Discontinue d(Refill) ARIPiprazole 20 MG Oral Tablet (Abilify) Take 1 Tablet by mouth in the morning. 30 Tablet 2 02/21/2024 4 Discontinue d(Refill) Topiramate 25 MG Oral Tablet (topAMAX) Take 30-60 minutes before supper. Start with 1 tablet (25 mg) daily x3 days, then increase to 2 tablets (50 mg) daily x3 days, then increase to 3 tablets (75 mg) daily. 90 Tablet 1 02/29/2024 4 Discontinue d(Adverse reaction) Hospital, Clinic, or Other Facility Administered Medication Ordered Dose Route Frequency Start Date End Date Status ARIPiprazole ER (Abilify Maintena) IM inj vial 300 mgIndications:Bipolar 2 disorder (HCC) 300 mg IM [id number] 01/20/2024 Active CAM MISCELLANEOUS MEDICATION 300 mgIndications:Bipolar 2 disorder (HCC) 300 mg IM [id number] 01/20/2024 Active documented as of this encounter [...] mRNA, LNP-s, No Pre serve, 2-Dose Series ([employer]) 08/26/2021,08/06/2021 Hepatitis B, 0-19 yrs 11/26/2010 Hepatitis B, 20+ yrs 11/26/2010,07/28/2010,05/26 Pneumococcal Conjugate Vacci ne, 20-valent ([id number]) 06/10/2022 Pneumococcal Polysaccharide PPV23 (Pneumovax) 07/14/2020 Seasonal [...] encounter Miscellaneous Notes * Telephone Encounter - Jasmina Martin OSA - 03/22/2024 2:45 PM EDT Patient is calling to see if she should increase to the next dose for Wegovy. She currently takes .25. She also said Wegovy .50 is not in stock and do you want her to stay on .25 or go to the next level above .50 documented in this encounter Plan of Treatment Upcoming Encounters Date Type Department Care Team (Late st Contact Info) Description 08/10/2024 2:40 PM EDT Telemedicine Nutrition & Weight Management, [place] [address] [place] [address] Rach River RDN [address] [place] [address] 08/29/2024 8:40 AM EST Telemedicine Nutrition & Weight Management, [place] [address] [place] [address] Lindy Bains MD [address] [place] [address] Scheduled Procedures Name Priority Associated Diagnoses Date/Ti [...] filedocumented as of this encounter Care Teams Tool Technician Relationship Specialty Start Date End Date Hernan Dominguez III, MD [address] [place] [address] PCP - General Family Medicine 06/05/20 documented as of this encounter
--- OUTSIDE RECORDS SUMMARY | 2024-08-23 00:31 | External Medical Summary ---
Author Name Unknown Address Unknown Organization K01:[facility] [address] [facility] [address] Laboratory Report Ordering Provider Test Date Status MAYELIN AVALOS 08/13/2024 13:49:56 Final <10,000 colonies/ml mixed no rmal jessee Observation Date Value Abnormality Reference (Units ) Status Bacteria identified in Specimen by Culture 08/13/2024 13:49:56 [id number]^ESCHE RICHIA COLI Abnormal Final 10,000 to 100,000 colonies/m L Escherichia coli Performing Location [facility] [place] [facility] [address] [facility] [address] Ordering Provider Test Date Status MAYELIN AVALOS 08/13/2024 13:49:56 Final Observation Date Value Abnormality Reference (Units ) Status Ampicillin 08/13/2024 13:49:56 >=32 Resistant Final Ampicillin + Sulbactam 08/13/2024 13:49:56 16 Intermediate Final Cefazolin 08/13/2024 13:49:56 <=4 Susceptible Final Cefepime susceptibility 08/13/2024 13:49:56 <=1 Susceptible Final Ceftriaxone suceptibility 08/13/2024 13:49:56 <=1 Susceptible Final Ciprofloxacin 08/13/2024 13:49:56 <=0.25 Susceptible Final Due to serious side effects, the FDA has advised against using Ciprofloxacin to treat uncomplicated UTIs and respiratory tract infections unless there are no alternative treatment options. Gentamicin susceptibility 08/13/2024 13:49:56 <=1 Susc eptible Final Nitrofurantoin susceptibility 08/13/2024 13:49:56 <=16 Susceptible Final Piperacillin + Tazobactamsusceptibility 08/13/2024 13:49:56 <=4 Susceptible Final TMP-SMZ susceptibility 08/13/2024 13:49:56 <=20 Suscept ible Final Test: Culture, Urine, Quanti tative
Specimen Source: Urine, Clean Catch
Specimen Type: Urine
Specimen Date: 08/13/2024 1349
Result Date: 08/15/2024 1522
Result Status: Final result
Abnormal: Yes
Resulting Lab: [facility]
[address]
[place] [address]

CULTURE

10,000 to 100,000 colonies/mL Escherichia coli (Abnormal)

<10,000 colonies/ml mixed normal jessee

SUSCEPTIBILITY

Escherichia coli
METHOD MICROBROTH DILUTIONS

AMPICILLIN >=32 Resistant
AMPICILLIN/SULBACTAM 16 Intermediate
CEFAZOLIN <=4 Susceptible
CEFEPIME <=1 Susceptible
CEFTRIAXONE <=1 Susceptible
CIPROFLOXACIN <=0.25 Susceptible
[1]
GENTAMICIN <=1 Susceptible
NITROFURANTOIN <=16 Susceptible
PIPERACILLIN TAZOBACTAM <=4 Susceptible
TRIMETH/SULFAMETHOXAZOLE <=20 Susceptible

[1] Due to serious side effects, the FDA has advised against using
Ciprofloxacin to treat uncomplicated UTIs and respiratory tract infections
unless there are no alternative treatment options.

null Performing Location [facility] [place] [address] [facility] [address]
--- OUTSIDE RECORDS SUMMARY | 2024-08-23 00:32 | External Medical Summary | Summary of Care ---
Author Name Unknown Organization [facility] Address [address] [place] [address] Phone [phone] Care Team Providers Care Life Sciences Director Name Role Phone Alberto ODOM MD, Hernan Rocha Primary Care Provider [phone] Reason for Visit * Reason Comments Weight Management Encounter Details Date Type Department Care Team (Late st Contact Info) Description 04/09/2024 9:00 AM EDT Telemedicine Nutrition & Weight Management, [place] [address], [place] [phone] Rach River RDN [address] [place], [place] [phone] Class 2 obesity due to excess calories with body mass index (BMI) of 36.0 to 36.9 in adult, unspecified whether serious comorbidity present* Allergies No known active allergiesdocumented as of this encounter (statuses as of 04/09/2024) Medications Medication Sig Dispensed Refills Start Date End Date Status Fluticasone Propionate 50 MCG/ACT Nasal Suspension (Flonase) Administer 2 Sprays into each nostril in the morning. opp hand. 16 g 6 02/04/2023 Active Ondansetron HCl 4 MG Oral TabletIndications: Nausea and vomiting, unspecified vomiting type Take 1 Tablet by mouth every 6 hours as needed for Nausea. 30 Tablet 08/02/2023 Active traZODone HCl 100 MG Oral Tablet (Desyrel) Take 1 Tablet by mouth at bedtime. 90 Tablet 1 11/24/2023 Active Naproxen 500 MG Oral Tablet (Naprosyn)Indicati ons:Right elbow pain,Lateral epicondylitis of right elbow Take 1 Tablet by mouth 2 times a day with morning and evening meals. With food 60 Tablet 1 01/19/2024 Active lamoTRIgine 200 MG Oral Tablet (LaMICtal) Take 1 Tablet by mouth in the morning. 30 Tablet 2 01/19/2024 Active ARIPiprazole 20 MG Oral Tablet (Abilify) Take 1 Tablet by mouth in the morning. 30 Tablet 2 02/21/2024 Active Topiramate 25 MG Oral Tablet (topAMAX) Take 30-60 minutes before supper. Start with 1 tablet (25 mg) daily x3 days, then increase to 2 tablets (50 mg) daily x3 days, then increase to 3 tablets (75 mg) daily. 90 Tablet 1 02/29/2024 Active Wegovy 0.25 MG/0.5ML Subcutaneous Solution Auto-injector (SkycheckinideKashlessWeigh t Management)Indicat ions:Class 2 severe obesity due to excess calories with serious comorbidity and body mass index (BMI) of 36.0 to 36.9 in adult (HCC) Inject 0.25 mg under the skin once a week. 2 mL 2 04/02/2024 Discontinued Hospital, Clinic, or Other Facility Administered Medication Ordered Dose Route Frequency Start Date End Date Status ARIPiprazole ER (Abilify Maintena) IM inj vial 300 mgIndications:Bipolar 2 disorder (HCC) 300 mg IM [id number] 01/20/2024 Active CAM MISCELLANEOUS MEDICATION 300 mgIndications:Bipolar 2 disorder (HCC) 300 mg IM [id number] 01/20/2024 Active documented as of this encounter (statuses as of 04/09/2024) Active Problems Problem Noted Date Diagnosed Date Food insecurity 10/03/2023 Overview: Per [facility] Protocol Gastro-esophageal reflux disease without esophag itis 03/07/2023 Class 2 severe obesity with serious comorbidity and body mass index (BMI) of 36.0 to 36.9 in adult 02/04/2023 Bipolar affective disorder, currently manic, mod erate 10/27/2021 documented as of this encounter (statuses as of 04/09/2024) Immunizations Name Administration Dates Next Due COVID-19 mRNA, LNP-s, No Pre serve, 2-Dose Series (Pfizer) 08/26/2021,08/06/2021 Hepatitis B, 0-19 yrs 11/26/2010 Hepatitis B, 20+ yrs 11/26/2010,07/28/2010,05/26 Pneumococcal Conjugate Vacci ne, 20-valent ([id number]) 06/10/2022 Pneumococcal Polysaccharide PPV23 (Pneumovax) 07/14/2020 Seasonal [...] you didn't have money to get more. Sometimes true Sex and Gender Information Value Date Recorded Sex Assigned at Female 09/22/2023 7:30 PM EST Gender Identity Female 09/22/2023 7:30 PM EST Sexual Orientation Straight 09/22/2023 7: 30 PM EST Job Start Date Occupation Industry Not on file Not on file Not on file documented as of this encounter Last Filed Vital Signs Vital Sign Reading Time Taken Comments Blood Pressure - - Pulse - - Temperature - - Respiratory Rate - - Oxygen Saturation - - Inhaled Oxygen Concentration - - Weight 96.2 kg (212 lb) 04/09/2024 9:21 AM EDT p t reported Height 161.9 cm (5' 3.74") 04/09/2024 9:21 AM ED T Body Mass Index 36.69 04/09/2024 9:21 AM EDT documented in this encounter Patient Instructions * Patient Instructions* Rach River RDN - 04/09/2024 9:38 AM EDT GOALS: - No meal skipping. -Try to keep a better meal schedule to avoid grazing or side effects from Wegovy. - Try out low fat (<1%) milk - Fairlife or Super Skim - Choose low sugar/sugar-free and low fat foods as best you can. - Focus on balanced meals including protein (at least 70 grams daily), produce, and whole grain/starch. -No need to fear fruit. "Lower sugar" fruits include berries and pineapple, but you can eat any fruit you want. documented in this encounter Progress Notes * Rach River RDN - 04/09/2024 9:05 AM EDT NUTRITION & WEIGHT MANAGEMENT CONSULT NOTE [facility] Patient was identified at visit by name and date. Patient location: HOME. I was in a hospital or clinic location. After connecting through [employer],patient was verified with two unique identifiers. 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 legal student services representative) was then informed that this was a Telemedicine visit and being conducted confidentially over secure lines. Methods to assure confidentiality were taken. Patient acknowledged consent and understanding of pr ivacy and security of the Telemedicine visit. The patient agreed to participate. NUTRITION ASSESSMENT SUBJECTIVE: 43 year old female with class 2 obesity (Body mass index is 36.69 kg/m.) who has beenfollowing in clinic since 11/2023 and weighed 220 lb at that time. 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 Lives alone. She does the cooking/grocery shopping. She doesn't have a car. Able to start Wegovy. Missed 1 week d/t stock. Tolerating well mostly. Had emesis twice, but thinksit's related to heat at work and not eating at times. Not always eating while at work. Portions aresmall. Encouraged her to not skip meals. Reviewed healthy eating goals as listed below. Describes typical diet history/24 hr recall Breakfast: today had a few crackers or cottage cheese/yogurt or ice cream the other day Snacks: nothing Lunch: sometimes doesn't eat d/t how hot it is - sometimes yogurt or cheese sticks; yesterday had chicken and rice (robotics mechanic made at work) Snacks: cottage cheese or cheese and crackers Dinner: chicken vindaloo or ham/cheese sandwich +/- veggies Snacks: occasionally Drinks: water (80+ oz), 2% milk, coffee w/ almond scot flavored creamer, tea, occasionally diet coke Alcohol: Once a week or less - [place] recently Restaurant meals: at least once a month - pizza few weeks ago or [employer] sub PHYSICAL ACTIVITY: Light - on feet all day at work (active folding and moving all day). Walking to work (10-[address]) -Occasionally walking in evenings SUPPLEMENTS: chewable collagen, energy metabolism/probiotic PERTINENT MEDICATIONS: Wegovy (0.25 mg/week); not taking Topiramate Progress on goals from the previous visit: Fair progress ANTHROPOMETRICS: Height: 1.619 m Initial weight: 100.2 kg (220 lb 12.8 oz) (telemed - 11/25/23) Highest weight: 230 lb 2023 Lowest weight: 125 lb since age 20 Weight goal: 150 lb personal goal Current weight: 212 lb AIBW: 73 kg (160 lb) Weight changes: decreased by 18 pounds in the past 3 months Wt Readings from Last 6 Encounters: 04/09/24 96.2 kg (212 lb) 01/19/24 104.3 kg (230 lb) 11/07/23 100.2 kg (220 lb 12.8 oz) 09/30/23 98.6 kg (217 lb 6.4 oz) 08/02/23 89.8 kg (198 lb 1.3 oz) 07/15/23 88.9 kg (196 lb) Patient is interested in the following treatment options for obesity: medical management and medication use. LABS: Pertinent lab studies have been reviewed. NUTRITION PRESCRIPTION: Chelle Sales (1597) x1.4 activity factor = 2236 Kcals --> 4105-5744 Kcals for weight loss Protein: 1.0 gm protein/kg (AIBW 73 kg) = 73 gm protein/day Fluid: 35 mL/kg (AIBW 73 kg) = ~2600 mL/day KNOWLEDGE ASSESSMENT: adequate knowledge BARRIERS TO LEARNING: None SPECIAL EDUCATION NEEDS: None NUTRITION DIAGNOSIS Overweight/obesity related to imbalance of calories consumed vs expended as evidenced by reported diet and/or activity recall; BMI 36.69 kg/m NUTRITION INTERVENTION INSTRUCTED PT ON THESE NUTRITION HANDOUTS: ADA Plan your portions, What's in a serving PATIENT GOALS: - No meal skipping. -Try to keep a better meal schedule to avoid grazing or side effects from Wegovy. - Try out low fat (<1%) milk - Fairlife or Super Skim - Choose low sugar/sugar-free and low fat foods as best you can. - Focus on balanced meals including protein (at least 70 grams daily), produce, and whole grain/starch. -No need to fear fruit. "Lower sugar" fruits include berries and pineapple, but you can eat any fruit you want. EXPECTED OUTCOMES: Demonstrated interest in learning. Expect compliance with diet recommendations. PLAN: Return with provider in 2-3 months; RD in 6 months 45 min (38-52 min) visit Rach River MS, ELPIDIO, LDN Clinical Dietitian Phone | [phone] [employer] documented in this encounter Plan of Treatment Upcoming Encounters Date Type Department Care Team (Late st Contact Info) Description 05/07/2024 1:40 PM EDT Office Visit Family Practice [facility] [address] [place] [address] Ledy Vizcaino MD [address] [place], [place] [address] Scheduled Procedures Name Priority Associated Diagnoses Date/Ti me COLONOSCOPY FLEXIBLE PROXIMAL DIAGNOSTIC Recall History of colon polyps Health Maintenance Due Date Last Done Comments COVID-19 Vaccine ( season) 2023 08/26/2021, 08/06/2021 Influenza Vaccine (FLU shot) (Season Ended) 2024 11/24/2021, 12/23/2020, 08/03/2018 Mammogram 09/26/2024 09/26/2023, 01/2023, 08/11/2023, Additional history exists Depression Monitoring 01/18/2025 01/19/2024 Colonoscopy 11/13/2025 11/13/2020, 11/13/2020 Diabetes Screening 03/07/2026 03/07/2023, 0 03/07/2023, 02/16/2022, Additional history exists Pap Smear 09/30/2026 09/30/2023 Lipid Panel 03/07/2028 03/07/2023 Cervical Cancer Screening 09/30/2028 HPV/Co-Test 09/30/2028 09/30/2023 DTaP,Tdap,and Td Vaccines (2 - Td or Tdap) 07/14/2030 07/14/2020 Hepatitis B Completed 11/26/2010, 12/2010, 07/28/2010, Additional history exists RETIRED - COLONOSCOPY-EVERY 5 YRS AGES 18-100 Discontinued 11/13/2020, 11/13/2020 Pneumococcal Vaccine: Pediatrics (0 to 5 Years) and At-Risk Patients (6 to 64 Years) Completed 06/10/2022, 07/14/2020 GARDASIL-HPV IMMUNIZATION SERIES Aged Out No longer eligible based on patient's age to complete this topic MENINGOCOCCAL (MENACTRA/MENVEO) Aged Out No longer eligible based on patient's age to complete this topic documented as of this encounter Medical Devices Not on filedocumented as of this encounter Visit Diagnoses Diagnosis Class 2 obesity due to excess calories with body mass index (BMI) of 36.0 to 36.9 in adult, unspecified whether serious comorbidity present- Primary documented in this encounter Care Teams Life Sciences Director Relationship Specialty Start Date End Date Hernan Dominguez III, MD [address] [place] [address] PCP - General Family Medicine 06/05/20 documented as of this encounter
--- OUTSIDE RECORDS SUMMARY | 2024-08-23 00:32 | External Medical Summary ---
Author Name Unknown Address Unknown Organization K09:[facility] [place] [address] [place] [address] Laboratory Report Ordering Provider Test Date Status 05/14/2024 14:01:35 Final Observation Date Value Abnormality Reference (Units ) Status BUN 05/14/2024 14:01:35 15 6-20 (mg/dL) Final Creatinine 05/14/2024 14:01:35 0.9 0.5-1.0 (mg/dL) Final Glomerular filtration rate/1.73 sq M.predicted [Volume Rate/Area] in Serum, Plasma or Blood by Creatinine-based formula (CKD-EPI) 05/14/2024 14:01:35 87 >=60 (mL/min) Final eGFR is calculated based on the CKD-EPI 2020 equation. Sodium 05/14/2024 14:01:35 137 135-146 (m mol/L) Final Potassium 05/14/2024 14:01:35 4.6 3.5-5.1 (m mol/L) Final Cl 05/14/2024 14:01:35 102 98-107 (mm ol/L) Final CO2 05/14/2024 14:01:35 21 Below low normal 22- 32 (mmol/L) Final Anion gap 05/14/2024 14:01:35 14 7-15 (mmol /L) Final Glucose 05/14/2024 14:01:35 89 70-120 (mg /dL) Final Albumin 05/14/2024 14:01:35 4.3 3.8-5.0 (g /dL) Final AST (Aspartate aminotransferase) 05/14/2024 14:01:35 12 10-35 (U/L) Fin al Alk Phos 05/14/2024 14:01:35 83 35-130 (U/ L) Final Bilirubin, Total 05/14/2024 14:01:35 0.2 <=1 .2 (mg/dL) Final Calcium 05/14/2024 14:01:35 9.1 8.4-10.2 ( mg/dL) Final Protein 05/14/2024 14:01:35 6.9 6.0-8.3 (g /dL) Final ALT (Alanine aminotransferase) 05/14/2024 14:01:35 17 10-35 (U/L) Sergio mac Performing Location [facility] [place] [address] [place] [address]
--- OUTSIDE RECORDS SUMMARY | 2024-08-23 00:32 | External Medical Summary ---
Author Name Unknown Address Unknown Organization [id number]:LABORATORY [facility] - [address] [facility] [address] Laboratory Report Ordering Provider Test Date Status SONYA CARTAGENA III 05/14/2024 14:01:35 Final Observation Date Value Abnormality Reference (Units ) Status HbA1C 05/14/2024 14:01:35 5.3 4.0-5.6 (% ) Final The use of HbA1c to monitor glycemic status is based on normal hemoglobin and HbA composition. This test should not be used in patients with abnormal hemoglobin that affects the half life of the red blood cell or the in vivo glycation rates. Glucose, estimated average 05/14/2024 14:01:35 105 <126 (mg/dL) Final Performing Location LABORATORY [facility] - [address] [facility] [address]
--- OUTSIDE RECORDS SUMMARY | 2024-08-23 00:32 | External Medical Summary | Summary of Care ---
Author Name Unknown Organization [facility] Address [address] [place] [address] Phone [phone] Care Team Providers Care Rehabilitation Medicine Physician Name Role Phone Alberto ODOM MD, Hernan Rocha Primary Care Provider [phone] Reason for Visit * Reason Comments Outpatient Testing Encounter Details Date Type Department Care Team (Late st Contact Info) Description 05/14/2024 2:00 PM EDT Laboratory Laboratory [facility] [place] [address] [place] [id number] [place], [address] [place] [address] Nausea and vomiting, unspecified vomiting type; BMI 39.0-39.9,adult Allergies No known active allergiesdocumented as of this encounter (statuses as of 05/14/2024) Medications Medication Sig Dispensed Refills Start Date [...] With food 60 Tablet 1 01/19/2024 Active ARIPiprazole 20 MG Oral Tablet (Abilify) Take 1 Tablet by mouth in the morning. 30 Tablet 2 02/21/2024 Active Wegovy 0.5 MG/0.5ML Subcutaneous Solution Auto-injector (Semaglutide-Weight Management) Inject 0.5 mg under the skin once a week for 28 days. 2 mL 1 04/20/2024 05/18/2024 Active lamoTRIgine 200 MG Oral Tablet (LaMICtal)Indication s:Bipolar 2 disorder (HCC) Take 1 Tablet by mouth in the morning. 30 Tablet 2 05/14/2024 Active Drysol 20 % External Solution (Aluminum Chloride)Indications :Generalized hyperhidrosis Apply topically to affected area every night at bedtime. 35 mL 11 05/14/2024 Active Hospital, Clinic, or Other Facility Administered Medication Ordered Dose Route Frequency Start Date End Date Status ARIPiprazole ER (Abilify Maintena) IM inj vial 300 mgIndications:Bipolar 2 disorder (HCC) 300 mg IM [id number] 01/20/2024 Active CAM MISCELLANEOUS MEDICATION 300 mgIndications:Bipolar 2 disorder (HCC) 300 mg IM [id number] 01/20/2024 Active documented as of this encounter (statuses as of 05/14/2024) Active Problems Problem Noted Date Diagnosed Date Bipolar 2 disorder 05/14/2024 Food insecurity 10/03/2023 Overview: Per [facility] Protocol Gastro-esophageal reflux disease without esophag itis 03/07/2023 Class 2 severe obesity with serious comorbidity and body mass index (BMI) of 36.0 to 36.9 in adult 02/04/2023 documented as of this encounter (statuses as of 05/14/2024) Immunizations Name Administration Dates Next Due COVID-19 mRNA, LNP-s, No Pre serve, 2-Dose Series (ECO-SAFE) 08/26/2021,08/06/2021 Hepatitis B, 0-19 yrs 11/26/2010 Hepatitis B, 20+ yrs 11/26/2010,07/28/2010,05/26 Pneumococcal Conjugate Vacci ne, 20-valent ([id number]) 06/10/2022 Pneumococcal Polysaccharide PPV23 (Pneumovax) 07/14/2020 Seasonal [...] as of this encounter Plan of Treatment Upcoming Encounters Date Type Department Care Team (Late st Contact Info) Description 08/10/2024 2:40 PM EDT Telemedicine Nutrition [facility], [place] [address] [place] [address] Rach River RDN [address] [place] [address] 08/29/2024 8:40 AM EST Telemedicine [facility], [place] [address] [place] [address] Lindy Bains MD [address] [place] [address] Pending Results Name Type Priority Associated Diagnoses Date /Time COMPREHENSIVE METABOLIC PANEL Lab Routine Nausea and vomiting, unspecified vomiting type 05/14/2024 2:01 PM EDT LIPASE Lab Routine Nausea and vomiting, unspecified vomiting type 05/14/2024 2:01 PM EDT TSH WITH FREE T4 IF INDICATED Lab Routine BMI 39.0-39.9,adult 05/14/2024 2:01 PM EDT HEMOGLOBIN A1C Lab Routine BMI 39.0-39.9,adult 05/14/2024 2:01 PM EDT LIPID PANEL WITH DIRECT LDL IF TG IS HIGH Lab Routine BMI 39.0-39.9,adult 05/14/2024 2:01 PM EDT Scheduled Procedures Name Priority Associated Diagnoses Date/Ti me COLONOSCOPY FLEXIBLE PROXIMAL DIAGNOSTIC Recall History of colon polyps Health Maintenance Due Date Last Done Comments COVID-19 Vaccine (3 - 2022-24 season) 2023 08/26/2021, 08/06/2021 Influenza Vaccine (FLU [...] Not on filedocumented as of this encounter Procedures Procedure Name Priority Date/Time Associated Diagnosis Comments CBC Routine 05/14/2024 2:01 PM EDT Nausea and vomiting, unspecified vomiting type documented in this encounter Results * CBC (05/14/2024 2:01 PM EDT) WBC 8.86 4.00 - 10.80 K/uL 05/14/2024 2:17 PM EDT [facility] 56 RBC 4.34 3.85 - 5.15 M/uL 05/14/2024 2:17 PM EDT [address] HGB 14.6 12.0 - 15.3 g/dL 05/14/2024 2:17 PM EDT [facility] 56 HCT 43.9 36.0 - 45.2 % 05/14/2024 2:17 PM EDT [address] MCV 101.2 81.5 - 97.5 fL 05/14/2024 2:17 PM EDT [address] MCH 33.6 27.0 - 34.0 pg 05/14/2024 2:17 PM EDT [address] MCHC 33.3 32.0 - 36.0 g/dL 05/14/2024 2:17 PM EDT [address] RDW 12.8 11.5 - 15.5 % 05/14/2024 2:17 PM EDT [address] PLT 356 140 - 400 K/uL 05/14/2024 2:17 PM EDT [address] MPV 8.7 6.6 - 11.1 fL 05/14/2024 2:17 PM EDT [facility] 56 Blood Venous blood specimen / Unknown Venipuncture / Unknown 05/14/2024 2:01 PM EDT 05/14/2024 2:01 PM EDT January Anyi [facility] LAB BLOOD ORDERABLES [facility] [address]- [address] [place] [id number] documented in this encounter Visit Diagnoses Diagnosis Nausea and vomiting, unspecified vomiting type BMI 39.0-39.9,adult Body Mass Index 39.0-39.9, adult documented in this encounter Care Teams Rehabilitation Medicine Physician Relationship Specialty Start Date End Date Hernan Dominguez III, [facility] [address] [facility] [address] P[facility] - General Family Medicine 06/05/20 documented as of this encounter
--- OUTSIDE RECORDS SUMMARY | 2024-08-23 00:32 | External Medical Summary | Summary of Care ---
Author Name Unknown Organization [facility] Address [address] [place] [address] Phone [phone] Care Team Providers Care Band Edger Name Role Phone Alberto ODOM MD, Hernan Rocha Primary Care Provider [phone] Reason for Visit * Reason Comments Re-Check Encounter Details Date Type Department Care Team (Latest Contact Info) Description 05/14/2024 1:40 PM EDT Office Visit Family Practice [facility] [place] [address] [place] [address] Ledy Vizcaino MD [address] [facility] [place] [address] Class 2 severe obesity with serious comorbidity and body mass index (BMI) of 36.0 to 36.9 in adult, unspecified obesity type (HCC)*; Gastro-esophageal reflux disease without esophagitis; Bipolar 2 disorder (HCC); Generalized hyperhidrosis; Left lateral epicondylitis Allergies No known active allergiesdocumented as of [...] for 28 days. 2 mL 1 04/20/2024 Active lamoTRIgine 200 MG Oral Tablet (LaMICtal)Indicatio ns:Bipolar 2 disorder (HCC) Take 1 Tablet by mouth in the morning. 30 Tablet 2 05/14/2024 Active Drysol 20 % External Solution (Aluminum Chloride)Indication s:Generalized hyperhidrosis Apply topically to affected area every night at bedtime. 35 mL 11 05/14/2024 Active lamoTRIgine 200 MG Oral Tablet (LaMICtal) Take 1 Tablet by mouth in the morning. 30 Tablet 2 01/19/2024 Discontinue d(Refill) Hospital, Clinic, or Other Facility Administered Medication Ordered Dose Route Frequency Start Date End Date Status ARIPiprazole ER (Abilify Maintena) IM inj vial 300 mgIndications:Bipolar 2 disorder (HCC) 300 mg IM [id number] 01/20/2024 Active CAM MISCELLANEOUS MEDICATION 300 mgIndications:Bipolar 2 disorder (HCC) 300 mg IM [id number] 01/20/2024 Active documented as of this encounter [...] yrs 11/26/2010,07/28/2010,05/26 Pneumococcal Conjugate Vacci ne, 20-valent ([id number]) 06/10/2022 Pneumococcal Polysaccharide PPV23 (Pneumovax) 07/14/2020 Seasonal [...] Sign Reading Time Taken Comments Blood Pressure 120/70 05/14/2024 1:35 PM EDT Pulse 96 05/14/2024 1:35 PM EDT Temperature 37.3 C (99.1 F) 05/14/2024 1:35 PM ED T Respiratory Rate 18 05/14/2024 1:35 PM EDT Oxygen Saturation 96% 05/14/2024 1:35 PM EDT Inhaled Oxygen Concentration - - Weight 98.9 kg (218 lb) 05/14/2024 1:35 PM EDT Height - - Body Mass Index 37.73 04/09/2024 9:21 AM EDT documented in this encounter Progress Notes * Ledy Vizcaino MD - 05/14/2024 1:36 PM EDT Subjective Chief Complaint Patient presents with Re-Check HPI: Kendra Box is a 43 year old female. Patient is unaccompanied. The following issues were addressed today: Patient with obesity, GERD, bipolar II disorder presents today for follow-up. She follows with psychiatry. She is on Abilify 20mg daily which was increased from 15mg in January, as well as Lamictal 200mg and trazodone 100mg HS. States she had to cancel her last appointment on 05/02/24 and needs refill of Lamictal until she can be seen by psych again. States mood is a lot betterrecently and she has been sleeping much better. Feeling tired every night and getting good sleep. Notes that she has been experienced sweating for about the past year, worst in the past few months.Not focal, seems to be all over her body, but worst in the back of her neck and chest. Seems to happen more when she is active at work. Sometimes occurs at night but not as bad. Has had pain around the left elbow for month, states previously diagnosed with tennis elbow. Hurts with certain movements, holding her phone. Review of Systems: See HPI Objective BP 120/70 | Pulse 96 | Temp 37.3 C (99.1 F) (Tympanic) | Resp 18 | Wt 98.9 kg (218 lb) | SpO2 96% | BMI 37.73 kg/m | BSA 2.11 m Wt Readings from Last 3 Encounters: 05/14/24 98.9 kg (218 lb) 05/01/24 95.3 kg (210 lb) 04/09/24 96.2 kg (212 lb) BP Readings from Last 3 Encounters: 05/14/24 120/70 01/19/24 128/76 11/07/23 124/72 General: Well-appearing, no acute distress Cardiovascular: Regular rate and rhythm, no murmur Respiratory: Good respiratory effort, breath sounds equal and clear to auscultation bilaterally Extremities: No edema Neurological: Alert and oriented, no focal deficits noted Psychiatric: Appropriate mood and affect Assessment & Plan 1. Class 2 severe obesity with serious comorbidity and body mass index (BMI) of 36.0 to 36.9 in adult, unspecified obesity type (HCC) Diet and exercise reviewed. She is seeing weight management and currently prescribed Wegovy. 2. Gastro-esophageal reflux disease without esophagitis Well-controlled off medications. 3. Bipolar 2 disorder (HCC) Well-controlled. Continue current medication(s). Will refill Lamictal until she can be seen again by psychiatry. - lamoTRIgine 200 MG Oral Tablet (LaMICtal); Take 1 Tablet by mouth in the morning. Dispense: 30 Tablet; Refill: 2 4. Generalized hyperhidrosis Check labs previously ordered including TSH. May be side effect of medication, encouraged to discuss with psychiatry. Will try Drysol. Discussed may also be perimenopausal vasomotor symptoms, sometimes difficulty to distinguish. - Drysol 20 % External Solution (Aluminum Chloride); Apply topically to affected area every night at bedtime. Dispense: 35 mL; Refill: 11 5. Left lateral epicondylitis Recommended counterforce brace, rest, ice, NSAIDs PRN. Return in about 6 months (around 11/14/2024). This note was electronically signed by Ledy Vizcaino MD documented in this encounter Nursing Notes * Libby Henderson LPN - 05/14/2024 1:33 PM EDT Kendra Box presents for 3 month recheck. Medications & HM reviewed. C/O excessive sweating. Is unsure if its medication related. Wondering if there is anything that can be done to help that. documented in this encounter Plan of Treatment Upcoming Encounters Date Type Department Care Team (Late st Contact Info) Description 08/10/2024 2:40 PM EDT Telemedicine Nutrition & Weight Management, [place] [address] [place] [address] Rach River RDN [address], [place] [phone] 08/29/2024 8:40 AM EST Telemedicine Nutrition & [facility], [place] [address], [place] [phone] Lindy Bains MD [address], [place] [phone] Scheduled Procedures Name Priority Associated Diagnoses Date/Ti me COLONOSCOPY FLEXIBLE PROXIMAL DIAGNOSTIC Recall History of colon polyps Health Maintenance Due Date Last Done Comments COVID-19 Vaccine (2022- season) 2023 08/26/2021, 08/06/2021 Influenza Vaccine (FLU [...] this encounter Visit Diagnoses Diagnosis Class 2 severe obesity with serious comorbidity and body mass index (BMI) of 36.0 to 36.9 in adult, unspecified obesity type (HCC)- Primary Gastro-esophageal reflux disease without esophagitis Esophageal reflux Bipolar 2 disorder (HCC) Other bipolar disorders Generalized hyperhidrosis Left lateral epicondylitis Lateral epicondylitis of elbow documented in this encounter Care Teams Band Edger Relationship Specialty Start Date End Date Hernan Dominguez III, MD [address] [place] [address], [place] [address] PCP - General Family Medicine 06/05/20 documented as of this encounter
--- OUTSIDE RECORDS SUMMARY | 2024-08-23 00:32 | External Medical Summary | Summary of Care ---
Author Name Unknown Organization [facility] Address [address] [place] [address] Phone [phone] Care Team Providers Care Theatrical Dresser Name Role Phone Alberto ODOM MD, Hernan Rocha Primary Care Provider [phone] Encounter Details Date Type Department Care Team (Late st Contact Info) Description 05/01/2024 9:00 AM EDT Telemedicine Nutrition & Weight Management, [place] [address] [place] [address] Sharon Gayle, [address], [place] [id number] Class 2 obesity*; Abnormal weight gain Allergies No known active allergiesdocumented as of this encounter (statuses as of 05/01/2024) Medications Medication Sig Dispensed Refills Start Date [...] 28 days. 2 mL 1 04/20/2024 Active Topiramate 25 MG Oral Tablet (topAMAX) Take 30-60 minutes before supper. Start with 1 tablet (25 mg) daily x3 days, then increase to 2 tablets (50 mg) daily x3 days, then increase to 3 tablets (75 mg) daily. 90 Tablet 1 02/29/2024 Discontinue d(Adverse reaction) Hospital, Clinic, or Other Facility Administered Medication Ordered Dose Route Frequency Start Date End Date Status ARIPiprazole ER (Abilify Maintena) IM inj vial 300 mgIndications:Bipolar 2 disorder (HCC) 300 mg IM [id number] 01/20/2024 Active CAM MISCELLANEOUS MEDICATION 300 mgIndications:Bipolar 2 disorder (HCC) 300 mg IM [id number] 01/20/2024 Active documented as of this encounter (statuses as of 05/01/2024) Active Problems Problem Noted Date Diagnosed Date Food insecurity 10/03/2023 Overview: Per [facility] Protocol Gastro-esophageal reflux disease without esophag itis 03/07/2023 Class 2 severe obesity with serious comorbidity and body mass index (BMI) of 36.0 to 36.9 in adult 02/04/2023 Bipolar affective disorder, currently manic, mod erate 10/27/2021 documented as of this encounter (statuses as of 05/01/2024) Immunizations Name Administration Dates Next Due COVID-19 mRNA, LNP-s, No Pre serve, 2-Dose Series (OwlTing ???) 08/26/2021,08/06/2021 Hepatitis B, 0-19 yrs 11/26/2010 Hepatitis B, 20+ yrs 11/26/2010,07/28/2010,05/26 Pneumococcal Conjugate Vacci ne, 20-valent ([id number]) 06/10/2022 Pneumococcal Polysaccharide PPV23 (Pneumovax) 07/14/2020 Seasonal [...] - Inhaled Oxygen Concentration - - Weight 95.3 kg (210 lb) 05/01/2024 9:03 AM EDT p t reported Height - - Body Mass Index 36.34 04/09/2024 9:21 AM EDT documented in this encounter Progress Notes * Sharon Gayle, - 05/01/2024 9:02 AM EDT [facility] Referring Physician: Hernan Dominguez III, MD Patient location: HOME. I was not in a hospital or clinic location. After connecting through televideo, patient was verified with two unique identifiers. 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 legal retail field representative) was then informed that this was a Telemedicine visit and being conducted confidentially over secure lines. Methods to assure confidentiality were taken. Patient acknowledged consent and understanding of privacy and security of the Telemedicine visit. The patient agreed to participate. Source of information: Patient Available records reviewed: Recent provider visits, Imaging, and Labs Reason for Referral: Weight Management. Kendra Box is a 43 year old female patient with a PMH of: Past Medical History: Diagnosis Date Class 2 severe obesity with serious comorbidity and body mass index (BMI) of 36.0 to 36.9 in adult (HCC) 02/04/2023 who [facility] for further recommendations. First seen by [facility] in 11/2023 @ 220 lbs, BMI 37 Wt Readings from Last 8 Encounters: 05/01/24 95.3 kg (210 lb) 04/09/24 96.2 kg (212 lb) 01/19/24 104.3 kg (230 lb) 11/07/23 100.2 kg (220 lb 12.8 oz) 09/30/23 98.6 kg (217 lb 6.4 oz) 08/02/23 89.8 kg (198 lb 1.3 oz) 07/15/23 88.9 kg (196 lb) 03/07/23 95.4 kg (210 lb 6.4 oz) Pt reported weight today is 210 lbs TESSA 03/16 @ 217 lbs At last visit, she was started on topamax as Wegovy was on back order. She developed brain fog on topaamx, she stopped after about a week. Was able to get Wegovy and has been on it for about 2 months. Currently on 0.25mg, will be going upto 0.5mg next. She is not feeling as hungry, but feels like she is not as full as before. 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 opp hand. 16 g 6 Ondansetron HCl 4 MG Oral Tablet Take 1 Tablet by mouth every 6 hours as needed for Nausea. 30 Tablet 0 traZODone HCl 100 MG Oral Tablet (Desyrel) Take 1 Tablet by mouth at bedtime. 90 Tablet 1 Naproxen 500 MG Oral Tablet (Naprosyn) Take 1 Tablet by mouth 2 times a day with morning and evening meals. With food 60 Tablet 1 lamoTRIgine 200 MG Oral Tablet (LaMICtal) Take 1 Tablet by mouth in the morning. 30 Tablet 2 ARIPiprazole 20 MG Oral Tablet (Abilify) Take 1 Tablet by mouth in the morning. 30 Tablet 2 Topiramate 25 MG Oral Tablet (topAMAX) Take 30-60 minutes before supper. Start with 1 tablet (25 mg) daily x3 days, then increase to 2 tablets (50 mg) daily x3 days, then increase to 3 tablets (75 mg) daily. 90 Tablet 1 Wegovy 0.5 MG/0.5ML Subcutaneous Solution Auto-injector (Semaglutide-Weight Management) Inject 0.5 mg under the skin once a week for 28 days. 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 Sleep Apnea: No Sleep Apnea STOP-BANG: Does patient snore loudly (louder than talking or loud enough to be heard)? sometimes Have others observed patient stopping breathing during sleep? No Does patient feel tired, fatigued or sleepy during daytime? yes Does patient have/is being treated for high blood pressure? no BMI greater than 35 kg/m2? yes; Body mass index is 36.34 kg/m. Patient 50 years or older? no; 43 year old Neck circumference greater than 16 inches? Unknown, this was a Telemed Visit. Gender: female Score: less than 3 no referral indicated Endocrine: Thyroid: No Patient denies personal or family history of medullary thyroid carcinoma. Patient denies personal or family history of multiple endocrine neoplasia syndrome. Insulin Resistance: No Diabetes: No Hemoglobin AIC Results: Lab Results Component Value Date/Time HEMOGLOBIN A1C - [facility] 5.2 03/07/2023 11:56 AM Dyslipidemia: No GI: No nausea, vomiting, diarrhea, or constipation GERD: Yes: Requiring medications: No Fatty Liver: no Renal History of nephrolithiasis: Yes, 2-3 yrs ago. Reproductive Polycystic ovarian syndrome: No Menstrual Cycle: No 2/2 mirena Control: Yes Mirena PSYCHOSOCIAL: Adjustment Issues: Yes, having issues with body image and stress management Depression: Taking medication Other Confirmed Mental Health Diagnosis: bipolar disorder Stress/emotional/boredom eating: Yes Physical Examination: Wt 95.3 kg (210 lb) Comment: pt reported | BMI 36.34 kg/m | BSA 2.07 m General: NAD, Body mass index is 36.34 kg/m. HEENT: NCAT, EOMI CV: well-perfused Resp: chest rising equally, no increased work of breathing Neuro: AAO x3, grossly normal, interactive Psych: normal mood and affect Hemoglobin AIC Results: Lab Results Component Value Date/Time HEMOGLOBIN A1C - [facility] 5.2 03/07/2023 11:56 AM Assessment and Recommendation: Ms. Box is a 43 year old female patient with a past medical history listed above, who [facility] for further recommendations. Abnormal weight gain Body mass index is 36.34 kg/m. Class II obesity. Discussed weight management options and would like to proceed with conservative, & medication weight management. Will continue to titrate Wegovy- will go up to 0.5mg Pt stopped topamax due to having AE could consider trying Contrave in the future. Was on Wellbutrin in the past no significant negativeside effects. Would want to be sure this is appropriate with psych before initiating. Barriers are consistency. Motivators are feeling better, avoiding/reducing comorbid conditions. Patient goals were discussed in detail at visit. Goals: Cut down on coffee creamer Bring more protein snacks to work Bipolar Depression - stable on current meds I spent a total of 20-29 minutes (exact time 20 mins) on the date of service in preparation, delivery, and documentation of the care provided to Kendra Box excluding any time spent in the performance of separately billed services. More than 50% of my time spent with patient providing counseling about the benefits of weight loss,about the patient's nutritional status, detailed explanations about calorie count, types of nutrients to choose, and composition of the meals. Reviewed and discussed weight, weight trends and pertinent labs and test results. Motivational interview provided in order to prepare the patient to achievefuture goals. The patient agreed to try all the plan discussed. Patient was instructed to message or call in the meantime with any further concerns or questions. Sharon Gayle DO Clinical Nutrition and Weight Management [facility] documented in this encounter Miscellaneous Notes * Addendum Note - Sharon Gayle DO - 05/01/2024 9:17 AM EDT Addended by: SHARON GAYLE on: 05/01/2024 09:17 AM Modules accepted: Orders documented in this encounter Plan of Treatment Upcoming Encounters Date Type Department Care Team (Late st Contact Info) Description 05/02/2024 10:30 AM EDT [facility] [address] [place] [address] Adriel Bro CRNP [address] [place] [address] 05/07/2024 1:40 PM EDT Office Visit Family Practice [facility] [address] [facility] [place] [address] Ledy Vizcaino MD [address] [place] [address] 08/10/2024 2:40 PM EDT [facility] [address] [place] [address] Rach River RDN [address] [place] [address] Scheduled Procedures Name Priority Associated Diagnoses Date/Ti [...] this encounter Visit Diagnoses Diagnosis Class 2 obesity- Primary Abnormal weight gain documented in this encounter Care Teams Theatrical Dresser Relationship Specialty Start Date End Date Hernan Dominguez III, MD [address] [place], [place] [address] PCP - General Family Medicine 06/05/20 documented as of this encounter
--- OUTSIDE RECORDS SUMMARY | 2024-08-23 00:32 | External Medical Summary ---
Author Name Unknown Address Unknown Organization K01:[facility] [place] [address] [place] [address] Laboratory Report Ordering Provider Test Date Status 05/14/2024 14:01:35 Final Observation Date Value Abnormality Reference (Units ) Status Lipase 05/14/2024 14:01:35 24 13-60 (U/L ) Final Performing Location [facility] - [address] [place] [address]
--- OUTSIDE RECORDS SUMMARY | 2024-08-23 00:32 | External Medical Summary | Summary of Care ---
Author Name Unknown Organization [facility] Address [address] [place] [address] Phone [phone] Care Team Providers Care Salesperson Recreational Vehicles Name Role Phone Alberto ODOM MD, Hernan Rocha Primary Care Provider [phone] Reason for Visit * Reason Onset Date Comments Medication Refill 03/22/2024 Encounter Details Date Type Department Care Team (Late st Contact Info) Description 03/22/2024 Refill Nutrition & Weight Management, [place] [address], [place] [id number] Steph Gastelum MD [address] [place] [address] Class 2 severe obesity due to excess calories with serious comorbidity and body mass index (BMI) of 36.0 to 36.9 in adult (HCC) Allergies No known active allergiesdocumented as of this encounter (statuses as of 04/02/2024) Medications Medication Sig Dispensed Refills Start Date [...] Active Wegovy 0.25 MG/0.5ML Subcutaneous Solution Auto-injector (Semaglutide-Weight Management)Indicati ons:Class 2 severe obesity due to excess calories with serious comorbidity and body mass index (BMI) of 36.0 to 36.9 in adult (HCC) Inject 0.25 mg under the skin once a week. 2 mL 2 04/02/2024 Active Wegovy 0.25 MG/0.5ML Subcutaneous Solution Auto-injector (Semaglutide-Weight Management)Indicati ons:Class 2 severe obesity due to excess calories with serious comorbidity and body mass index (BMI) of 36.0 to 36.9 in adult (HCC) Inject 0.25 mg under the skin once a week. 2 mL 2 02/29/2024 Discontinue d(Refill) Hospital, Clinic, or Other Facility Administered Medication Ordered Dose Route Frequency Start Date End Date Status ARIPiprazole ER (Abilify Maintena) IM inj vial 300 mgIndications:Bipolar 2 disorder (HCC) 300 mg IM [id number] 01/20/2024 Active CAM MISCELLANEOUS MEDICATION 300 mgIndications:Bipolar 2 disorder (HCC) 300 mg IM [id number] 01/20/2024 Active documented as of this encounter (statuses as of 04/02/2024) Active Problems Problem Noted Date Diagnosed Date Food insecurity 10/03/2023 Overview: Per [facility] Protocol Gastro-esophageal reflux disease without esophag itis 03/07/2023 Class 2 severe obesity with serious comorbidity and body mass index (BMI) of 36.0 to 36.9 in adult 02/04/2023 Bipolar affective disorder, currently manic, mod erate 10/27/2021 documented as of this encounter (statuses as of 04/02/2024) Immunizations Name Administration Dates Next Due COVID-19 mRNA, LNP-s, No Pre serve, 2-Dose Series ([employer]) 08/26/2021,08/06/2021 Hepatitis B, 0-19 yrs 11/26/2010 Hepatitis B, 20+ yrs 11/26/2010,07/28/2010,05/26 Pneumococcal Conjugate Vacci ne, 20-valent ([id number]) 06/10/2022 Pneumococcal Polysaccharide PPV23 (Pneumovax) 07/14/2020 Seasonal [...] Telephone Encounter - Steph Gastelum MD - 04/02/2024 9:42 AM EDT Signed Prescriptions: Disp Refills Wegovy 0.25 MG/0.5ML Subcutaneous Solution*2 mL 2 Sig: Inject 0.25 mg under the skin once a week. Authorizing Provider: STEPH GASTELUM * Telephone Encounter - Melodie Elliott LPN - 03/29/2024 1:37 PM EDTPending Prescriptions: Disp Refills Wegovy 0.25 MG/0.5ML Subcutaneous Solution*2 mL 2 Sig: Inject 0.25 mg under the skin once a week. * Telephone Encounter - Provider, Patient Portal - 03/27/2024 1:23 PM EDTPending Prescriptions: Disp Refills Wegovy 0.25 MG/0.5ML Subcutaneous Solution*2 mL 2 Sig: Inject 0.25 mg under the skin once a week. * Telephone Encounter - Melodie Elliott LPN - 03/23/2024 3:47 PM EDTPending Prescriptions: Disp Refills Wegovy 0.25 MG/0.5ML Subcutaneous Solution*2 mL 2 Sig: Inject 0.25 mg under the skin once a week. * Telephone Encounter - Provider, Patient Portal - 03/23/2024 2:53 PM EDTPending Prescriptions: Disp Refills Wegovy 0.25 MG/0.5ML Subcutaneous Solution*2 mL 2 Sig: Inject 0.25 mg under the skin once a week. * Telephone Encounter - Jasmina Martin OSA - 03/22/2024 2:50 PM EDT Pending Prescriptions: Disp Refills Wegovy 0.25 MG/0.5ML Subcutaneous Solution*2 mL 2 Sig: Inject 0.25 mg under the skin once a week. documented in this encounter Plan of Treatment Upcoming Encounters Date Type Department Care Team (Late [facility] Julisa) Description 04/09/2024 9:00 AM EDT [facility] [address] [place] [address] Rach River, [place] [address] [place] [address] 05/07/2024 1:40 PM EDT Office Visit Family Practice [facility] [address] [place] [address] Ledy Vizcaino MD [address] [facility] [place] [address] Scheduled Procedures Name Priority Associated Diagnoses Date/Ti me COLONOSCOPY FLEXIBLE PROXIMAL DIAGNOSTIC Recall History of colon polyps Health Maintenance Due Date Last Done Comments COVID-19 Vaccine (2022- season) 2023 08/26/2021, 08/06/2021 Depression, Most Recent Score >= 10 (will fire each visit until score < 10) 01/20/2024 01/19/2024 Influenza Vaccine (FLU shot) (Season Ended) 2024 11/24/2021, 12/23/2020, 08/03/2018 Mammogram 09/26/2024 09/26/2023, 01/2023, 08/11/2023, Additional history exists Colonoscopy 11/13/2025 11/13/2020, 11/13/2020 Diabetes Screening 03/07/2026 [...] Visit Diagnoses Diagnosis Class 2 severe obesity due to excess calories with serious comorbidity and body mass index (BMI) of 36.0 to 36.9 in adult (HCC) documented in this encounter Care Teams Salesperson Recreational Vehicles Relationship Specialty Start Date End Date Hernan Dominguez III, MD [address] [place] [address] PCP - General Family Medicine 06/05/20 documented as of this encounter
--- OUTSIDE RECORDS SUMMARY | 2024-08-23 00:32 | External Medical Summary | Summary of Care ---
Author Name Unknown Organization [facility] Address [address] [place] [address] Phone [phone] Care Team Providers Care Senior Tax Specialist Name Role Phone Alberto ODOM MD, Hernan Rocha Primary Care Provider [phone] Reason for Visit * Reason Onset Date Comments Test Results 01/19/2024 Encounter Details Date Type Department Care Team (Late st Contact Info) Description 01/19/2024 Telephone Family Practice [facility] [address] [place] [address] Hernan Dominguez III, MD [address] [place] [address] Test Results Allergies No known active allergiesdocumented as of this encounter (statuses as of 04/11/2024) Medications Medication Sig Dispensed Refills Start Date End Date Status Fluticasone Propionate 50 MCG/ACT Nasal Suspension (Flonase) Administer 2 Sprays into each nostril in the morning. opp hand. 16 g 6 02/04/2023 Active Ondansetron HCl 4 MG Oral TabletIndications:[place] sea and vomiting, unspecified vomiting type Take 1 Tablet by mouth every 6 hours as needed for Nausea. 30 Tablet 08/02/2023 Active traZODone HCl 100 MG Oral Tablet (Desyrel) Take 1 Tablet by mouth at bedtime. 90 Tablet 1 11/24/2023 Active Naproxen 500 MG Oral Tablet (Naprosyn)Indications :Right elbow pain,Lateral epicondylitis of right elbow Take 1 Tablet by mouth 2 times a day with morning and evening meals. With food 60 Tablet 1 01/19/2024 Active lamoTRIgine 200 MG Oral Tablet (LaMICtal) Take 1 Tablet by mouth in the morning. 30 Tablet 2 01/19/2024 Active Hospital, Clinic, or Other Facility Administered Medication Ordered Dose Route Frequency Start Date End Date Status ARIPiprazole ER (Abiliflulú Maintena) IM inj vial 300 mgIndications:Bipolar 2 disorder (HCC) 300 mg IM [id number] 01/20/2024 Active CAM MISCELLANEOUS MEDICATION 300 mgIndications:Bipolar 2 disorder (HCC) 300 mg IM [id number] 01/20/2024 Active documented as of this encounter (statuses as of 04/11/2024) Active Problems Problem Noted Date Diagnosed Date Food insecurity 10/03/2023 Overview: Per [facility] Protocol Gastro-esophageal reflux disease without esophag itis 03/07/2023 Class 2 severe obesity with serious comorbidity and body mass index (BMI) of 36.0 to 36.9 in adult 02/04/2023 Bipolar affective disorder, currently manic, mod erate 10/27/2021 documented as of this encounter (statuses as of 04/11/2024) Immunizations Name Administration Dates Next Due COVID-19 mRNA, LNP-s, No Pre serve, 2-Dose Series (KidBook) 08/26/2021,08/06/2021 Hepatitis B, 0-19 yrs 11/26/2010 Hepatitis B, 20+ yrs 11/26/2010,07/28/2010,05/26 Pneumococcal Conjugate Vacci ne, 20-valent ([id number]) 06/10/2022 Pneumococcal Polysaccharide PPV23 (Pneumovax) 07/14/2020 Seasonal [...] have money to get more. Sometimes true Childcare Answer Date Recorded Do you feel overwhelmed with taking care of a child, family member or friend? No 09/22/2023 Does your family need help f inding childcare? (Household - for ages 0-17 years) Not on file 09/22/2023 Clothing Answer Date Recorded Have you been unable to get clothing when it was really needed? No 09/22/2023 Is your family able to get c lothes or diapers when needed? (Household - for ages 0-17 years) Not on file 09/22/2023 Personal Safety Answer Date Recorded Do you feel unsafe or have concerns for your saf ety? No 09/22/2023 Do you have concerns for you r family's safety? (Household - for ages 0-17 years) Not on file 09/22/2023 Utilities Answer Date Recorded Do you have trouble paying y our heating, water, or electric bill? Yes 09/22/2023 Is your family able to pay t he heat, water, or electric bill? (Household - for ages 0-17 years) Not on file 09/22/2023 Does your family have access to good internet? (Household - for ages 0-17 years) Not on file 09/22/2023 Employment Status Answer Date Recorded Are you unemployed or without regular income? No 09/22/2023 Does the household have a re gular source of income? (Household - for ages 0-17 years) Not on file 09/22/2023 Social Connections Answer Date Recorded How often do you feel lonely or isolated from th ose around you? Rarely 09/22/2023 Financial Resource Strain Answer Date R ecorded Do you have any trouble payi ng for your medications, or do you think you might in the future? No 09/22/2023 Does your family have troubl e paying for medicine? (Household - for ages 0-17 years) Not on file 09/22/2023 Transportation Needs Answer Date Record ed READ ONLY Do you have troubl e getting a ride to medical visits or work? Often True 09/22/2023 Does your family have a hard time getting a ride to doctors visits? (Household - for ages 0-17 years) Not on file 09/22/2023 Has lack of transportation k ept you from medical appointments, meetings, work, or from getting things needed for daily living? Check all that apply. (Adult - for ages 18 years and over) Not on file 09/22/2023 Do you (or your family) have trouble finding or paying for a ride (transportation)? (Household - for ages 0-17 years) Not on file 09/22/2023 Housing Stability Answer Date Recorded Do you currently live in a s helter or have no steady place to sleep at night? No 09/22/2023 READ ONLY Do you think you a re at risk of becoming homeless? No 09/22/2023 Does your family worry about paying for your home or becoming homeless? (Household - for ages 0-17 years) Not on file 1 11/22/2022 Are you homeless or worried that you might be in the future? (Adult - for ages 18 years and over) Not on file Are you (or your family) petr eless or worried that you might be in the future? (Household - for ages 0-17 years) Not on file Food Insecurity Answer Date Recorded Do you need food for this week? No 09/22/2023 Are you able to get enough f ood for your family? (Household - for ages 0-17 years) Not on file 09/22/2023 Does your family need food t his week? (Household - for ages 0-17 years) Not on file 09/22/2023 Do you always have enough fo od for your family? (Household - for ages 0-17 years) Not on file 09/22/2023 Sex and Gender Information Value Date Recorded Sex Assigned at Female 09/22/2023 7:30 PM EST Gender Identity Female 09/22/2023 7:30 PM EST Sexual Orientation Straight 09/22/2023 7: 30 PM EST Job Start Date Occupation Industry Not on file Not on file Not on file documented as of this encounter Miscellaneous Notes * Telephone Encounter - Renetta Desai RN - 04/11/2024 4:02 PM EDT ADDENDUM: The results were communicated to the patient 01/11/2024 by the family medicine team. * Telephone Encounter - Renetta Desai RN - 01/19/2024 3:20 PM EDT ----- Message from Hernan Dominguez III, MD sent at 01/19/2024 10:56 AM EDT ----- Call please biopsy as fibroadenoma no treatment needed annual mammography should be done documented in this encounter Plan of Treatment Upcoming Encounters Date Type Department Care Team (Late st Contact Info) Description 05/01/2024 9:00 AM EDT [facility] [address] [place] [address] Sharon Gayle DO [address] [place] [address] 05/07/2024 1:40 PM EDT Office Visit Family Practice [facility] [address] [place] [address] Ledy Vizcaino MD [address] [place] [address] 08/10/2024 2:40 PM EDT [facility] [address] [place] [address] Rach River RDN [address] [place] [address] Scheduled Procedures Name Priority Associated Diagnoses Date/Ti [...] filedocumented as of this encounter Care Teams Senior Tax Specialist Relationship Specialty Start Date End Date Hernan Dominguez III, MD [address] [place] [address] PCP - General Family Medicine 06/05/20 documented as of this encounter
--- OUTSIDE RECORDS SUMMARY | 2024-08-23 00:32 | External Medical Summary ---
Author Name Unknown Address Unknown Organization K01:LABORATORY [facility] [place] - [address] [facility] [place] [address] Laboratory Report Ordering Provider Test Date Status MITZISONYA III 05/14/2024 14:01:35 Final Observation Date Value Abnormality Reference (Units ) Status Triglyceride 05/14/2024 14:01:35 79 <=174 ( mg/dL) Final Triglyceride Reference Range s (mg/dL):
<150 Acceptable
150-174 Borderline high
175-499 High
>=500 Very high Cholesterol 05/14/2024 14:01:35 197 <200 (mg /dL) Final Total Cholesterol Reference Ranges (mg/dL):
<200 Desirable
200-239 Borderline high
>=240 High HDL 05/14/2024 14:01:35 55 >49 (mg/dL ) Final HDL Cholesterol Reference Ra nges (mg/dL):
>=60 High (Desirable)
<50 Low (Undesirable) For Females
<40 Low (Undesirable) For Males NON-HDL CHOLESTEROL 05/14/2024 14:01:35 142 <=159 (mg/dL) Final Non-HDL Cholesterol Referenc e Range (mg/dL):
<100 Target level for high risk ASCVD patient
<130 Optimal for general population
130-159 Near optimal for general population
160-189 Borderline High
190-219 High
>=220 Very High LDL, (calculated) 05/14/2024 14:01:35 126 <= 129 (mg/dL) Final LDL Cholesterol Reference Ra nges (mg/dL):
<70 Target level for high risk ASCVD patient
<100 Optimal for general population
100-129 Near optimal for general population
130-159 Borderline high
160-189 High
>=190 Very high Performing Location LABORATORY [facility] - [address] [facility] [address]
--- OUTSIDE RECORDS SUMMARY | 2024-08-23 00:32 | External Medical Summary | Summary of Care ---
Author Name Unknown Organization [facility] Address [address] [place] [address] Phone [phone] Care Team Providers Care Autographer Name Role Phone Alberto ODOM MD, Hernan Rocha Primary Care Provider [phone] Encounter Details Date Type Department Care Team (Late st Contact Info) Description 01/11/2024 Telephone Nutrition & Weight Management, [place] [address], [place] [phone] Mee Charles MD [address] [place], [place] [id number] Allergies No known active allergiesdocumented as of this encounter (statuses as of 04/11/2024) Medications Medication Sig Dispensed Refills Start Date End Date Status Fluticasone Propionate 50 MCG/ACT Nasal Suspension (Flonase) Administer 2 Sprays into each nostril in the morning. opp hand. 16 g 6 3 Active Ondansetron HCl 4 MG Oral TabletIndications: Nausea and vomiting, unspecified vomiting type Take 1 Tablet by mouth every 6 hours as needed for Nausea. 30 Tablet 3 Active traZODone HCl 100 MG Oral Tablet (Desyrel) Take 1 Tablet by mouth at bedtime. 90 Tablet 1 4 Active Naproxen 500 MG Oral Tablet (Naprosyn)Indicati ons:Right elbow pain,Lateral epicondylitis of right elbow Take 1 Tab by mouth 2 times a day with morning and evening meals. With food 60 Tab 1 1 01/19/20 24 Discontinued(Ref ill) ARIPiprazole 15 MG Oral Tablet (Abilify) Take 1 Tablet by mouth in the morning. 90 Tablet 1 4 02/21/20 24 Discontinued lamoTRIgine 150 MG Oral Tablet (LaMICtal) Take 1 Tablet by mouth in the morning. 30 Tablet 2 4 01/19/20 24 Discontinued Wegovy 0.25 MG/0.5ML Subcutaneous Solution Auto-injector (Semaglutide-Weigh t Management)Indicat ions:Class 2 severe obesity due to excess calories with serious comorbidity and body mass index (BMI) of 36.0 to 36.9 in adult ([facility]) Inject 0.25 mg under the skin once a week for 4 doses. 2 mL 4 01/13/20 24 Discontinued(Ref ill) Wegovy 0.25 MG/0.5ML Subcutaneous Solution Auto-injector (Semaglutide-Weigh t Management)Indicat ions:Class 2 severe obesity due to excess calories with serious comorbidity and body mass index (BMI) of 36.0 to 36.9 in adult (HCC) Inject 0.25 mg (1 pen) under the skin once a week. 2 mL 1 4 01/19/20 24 [facility] documented as of this encounter (statuses as [...] mRNA, LNP-s, No Pre serve, 2-Dose Series (Coderwall) 08/26/2021,08/06/2021 Hepatitis B, 0-19 yrs 11/26/2010 Hepatitis B, 20+ yrs 11/26/2010,07/28/2010,05/26 Pneumococcal Conjugate Vacci ne, 20-valent ([id number]) 06/10/2022 Pneumococcal Polysaccharide PPV23 (Pneumovax) 07/14/2020 Seasonal [...] 9:00 AM EDT [facility] [address] [place] [address] Sharon Gayle DO [address] [place] [address] 05/07/2024 1:40 PM EDT Office Visit Family Practice [facility] [address] [place] [address] Ledy Vizcaino MD [address] [place] [address] 08/10/2024 2:40 PM EDT [facility] [address] [place] [address] Rach River RDN [address] [place], [place] [phone] Scheduled Procedures Name Priority Associated Diagnoses Date/Ti [...] (HCC) documented in this encounter Care Teams Autographer Relationship Specialty Start Date End Date Hernan Dominguez III, MD [address] [facility] [place] [address] PCP - General Family Medicine 06/05/20 documented as of this encounter
--- OUTSIDE RECORDS SUMMARY | 2024-08-23 00:32 | External Medical Summary | Summary of Care ---
Author Name Unknown Organization [facility] Address [address] [place] [address] Phone [phone] Care Team Providers Care Keller Machine Operator Name Role Phone Alberto ODOM MD, Hernan Rocha Primary Care Provider [phone] Encounter Details Date Type Department Care Team (Late st Contact Info) Description 04/09/2024 Orders Only Outcomes Research Department [address] [place], [place] [phone] Anay Ortiz [facility] Other*[id number] Allergies No known active allergiesdocumented as of [...] Wegovy 0.25 MG/0.5ML Subcutaneous Solution Auto-injector (Semaglutide-Weight Management)Indication s:Class 2 severe obesity due to excess calories with serious comorbidity and body mass index (BMI) of 36.0 to 36.9 in adult (HCC) Inject 0.25 mg under the skin once a week. 2 mL 2 04/02/2024 Active Hospital, Clinic, or Other Facility Administered Medication Ordered Dose Route Frequency Start Date End Date Status ARIPiprazole ER (Abilify Maintena) IM inj vial 300 mgIndications:Bipolar 2 disorder (HCC) 300 mg IM [id number] 01/20/2024 Active CAM MISCELLANEOUS MEDICATION 300 mgIndications:Bipolar 2 disorder (HCC) 300 mg IM [id number] 01/20/2024 Active documented as of this encounter (statuses as of 04/09/2024) Active Problems Problem Noted Date Diagnosed Date Food insecurity 10/03/2023 Overview: Per [facility] Protocol Gastro-esophageal reflux disease without esophag itis 03/07/2023 Class 2 severe obesity with serious comorbidity and body mass index (BMI) of 36.0 to 36.9 in adult 02/04/2023 Bipolar affective disorder, currently manic, mod erate 10/27/2021 documented as of this encounter (statuses as of 04/09/2024) Immunizations Name Administration Dates Next Due COVID-19 mRNA, LNP-s, No Pre serve, 2-Dose Series ([employer] Discovery) 08/26/2021,08/06/2021 Hepatitis B, 0-19 yrs 11/26/2010 Hepatitis B, 20+ yrs 11/26/2010,07/28/2010,05/26 Pneumococcal Conjugate Vacci ne, 20-valent ([id number]) 06/10/2022 Pneumococcal Polysaccharide PPV23 (Pneumovax) 07/14/2020 Seasonal [...] AM EDT Telemedicine Nutrition & Weight Management, [place] [address] [place] [address] Rach River RDN [address] [place] [address] 05/07/2024 1:40 PM EDT Office Visit Family Practice [facility] [place] [address] [place] [address] Ledy Vizcaino MD [address] [place] [address] Scheduled Orders Name Type Priority Associated Diagnoses Orde r Schedule MYCODE SUBSEQUENT ADULT Lab Routine [facility] Other*[id number] Every 6 Months for 2 Occurrences starting 04/09/2024 until 04/29/2025 Scheduled Procedures Name Priority Associated Diagnoses Date/Ti [...] as of this encounter Visit Diagnoses Diagnosis [facility] Other*[id number] documented in this encounter Care Teams Keller Machine Operator Relationship Specialty Start Date End Date Hernan Dominguez III, MD [address] [facility] [place] [place] [address] PCP - General Family Medicine 06/05/20 documented as of this encounter
--- OUTSIDE RECORDS SUMMARY | 2024-08-23 00:32 | External Medical Summary ---
Author Name Unknown Address Unknown Organization K01:[facility] [place] - [address] [facility] [address] Laboratory Report Ordering Provider Test Date Status SONYA CARTAGENA III 05/14/2024 14:01:35 Final Observation Date Value Abnormality Reference (Units ) Status TSH 05/14/2024 14:01:35 2.65 0.27-4.20 (uIU/mL) Final Performing Location [facility] - [address] [facility] [address]
--- OUTSIDE RECORDS SUMMARY | 2024-08-23 00:32 | External Medical Summary ---
Author Name Unknown Address Unknown Organization K09:LABORATORY [place] [address] Laboratory Report Ordering Provider Test Date Status 05/14/2024 14:01:35 Final Observation Date Value Abnormality Reference (Units ) Status WBC, Total 05/14/2024 14:01:35 8.86 4.00-10.8 0 (K/uL) Final RBC 05/14/2024 14:01:35 4.34 3.85-5.15 (M/uL) Final Hemoglobin 05/14/2024 14:01:35 14.6 12.0-15.3 (g/dL) Final HCT 05/14/2024 14:01:35 43.9 36.0-45.2 (%) Final MCV 05/14/2024 14:01:35 101.2 81.5-97.5 (fL) Final MCH 05/14/2024 14:01:35 33.6 27.0-34.0 (pg) Final MCHC 05/14/2024 14:01:35 33.3 32.0-36.0 (g/dL) Final RDW 05/14/2024 14:01:35 12.8 11.5-15.5 (%) Final Platelets 05/14/2024 14:01:35 356 140-400 (K /uL) Final MPV 05/14/2024 14:01:35 8.7 6.6-11.1 ( fL) Final Performing Location [facility]ATORY [place] [address]
--- OUTSIDE RECORDS SUMMARY | 2024-08-23 00:32 | External Medical Summary | Summary of Care ---
Author Name Unknown Organization [facility] Address [address] [place] [address] Phone [phone] Care Team Providers Care Citizen Participation Specialist Name Role Phone Alberto ODOM MD, Hernan Rocha Primary Care Provider [phone] Encounter Details Date Type Department Care Team (Late st Contact Info) Description 05/01/2024 9:00 AM EDT Telemedicine Nutrition & Weight Management, [place] [address] [place] [address] Sharon Gayle, [address] [place], [place] [id number] Class 2 obesity*; Abnormal weight gain Allergies [...] mgIndications:Bipolar 2 disorder (HCC) 300 mg IM [id number] 01/20/2024 Active CAM MISCELLANEOUS MEDICATION 300 mgIndications:Bipolar 2 disorder (HCC) 300 mg IM [id number] 01/20/2024 Active documented as of this encounter (statuses as of 05/01/2024) Active Problems Problem Noted Date Diagnosed Date Food insecurity 10/03/2023 Overview: Per [facility] Protocol Gastro-esophageal reflux disease without esophag itis 03/07/2023 Class 2 severe obesity with serious comorbidity and body mass index (BMI) of 36.0 to 36.9 in adult 02/04/2023 Bipolar affective disorder, currently manic, mod erate 10/27/2021 documented as of this encounter (statuses as of 05/01/2024) Immunizations Name Administration Dates Next Due COVID-19 mRNA, LNP-s, No Pre serve, 2-Dose Series (Fluency) 08/26/2021,08/06/2021 Hepatitis B, 0-19 yrs 11/26/2010 Hepatitis B, 20+ yrs 11/26/2010,07/28/2010,05/26 Pneumococcal Conjugate Vacci ne, 20-valent ([id number]) 06/10/2022 Pneumococcal Polysaccharide PPV23 (Pneumovax) 07/14/2020 Seasonal [...] two unique identifiers. 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) was then informed that this [...] Gayle DO Clinical Nutrition and Weight Management [facility] documented in this encounter Miscellaneous Notes * Addendum Note - Sharon Gayle DO - 05/01/2024 9:17 AM EDT Addended by: SHARON GAYLE on: 05/01/2024 09:17 AM Modules accepted: Orders documented in this encounter Plan of Treatment Upcoming Encounters Date Type Department Care Team (Late st Contact Info) Description 05/02/2024 10:30 AM EDT [facility] [address] [place] [address] Adriel Bro CRNP [address] [place] [address] 05/07/2024 1:40 PM EDT Office Visit Family Practice [facility] [address] [facility] [place] [address] Ledy Vizcaino MD [address] [place] [address] 08/10/2024 2:40 PM EDT [facility] [address] [place] [address] Rach River RDN [address] [place] [address] Scheduled Procedures Name Priority Associated Diagnoses Date/Ti [...] gain documented in this encounter Care Teams Citizen Participation Specialist Relationship Specialty Start Date End Date Hernan Dominguez III, MD [address] [place], [place] [address] PCP - General Family Medicine 06/05/20 documented as of this encounter
--- OUTSIDE RECORDS SUMMARY | 2024-08-23 00:33 | External Medical Summary | Summary of Care ---
Author Name Unknown Organization [facility] Address [address] [place] [address] Phone [phone] Care Team Providers Care Price Changer Name Role Phone Alberto ODOM MD, Hernan Rocha Primary Care Provider [phone] Reason for Visit * Reason Onset Date Comments Medication Question 12/29/2023 Encounter Details Date Type Department Care Team (Late st Contact Info) Description 12/29/2023 Telephone Nutrition & Weight Management, [place] [address] [place], [place] [phone] Mee Charles MD [address] [place] [address] Medication Question Allergies No known active allergiesdocumented as of this encounter (statuses as of 03/29/2024) Medications Medication Sig Dispensed Refills Start Date [...] 30 Tablet 2 4 01/19/20 24 Discontinued documented as of this encounter (statuses as of 03/29/2024) Active Problems Problem Noted Date Diagnosed Date Food insecurity 10/03/2023 Overview: Per [facility] Protocol Gastro-esophageal reflux disease without esophag itis 03/07/2023 Class 2 severe obesity with serious comorbidity and body mass index (BMI) of 36.0 to 36.9 in adult 02/04/2023 Bipolar affective disorder, currently manic, mod erate 10/27/2021 documented as of this encounter (statuses as of 03/29/2024) Immunizations Name Administration Dates Next Due COVID-19 mRNA, LNP-s, No Pre serve, 2-Dose Series ([id number]) 08/26/2021,08/06/2021 Hepatitis B, 0-19 yrs 11/26/2010 Hepatitis B, 20+ yrs 11/26/2010,07/28/2010,05/26 Pneumococcal Conjugate Vacci ne, 20-valent ([id number]) 06/10/2022 Pneumococcal Polysaccharide PPV23 (Pneumovax) 07/14/2020 Seasonal [...] encounter Miscellaneous Notes * Telephone Encounter - Mee Charles MD - 01/13/2024 8:17 AM EDT Noted. MyG msg sent * Telephone Encounter - Bess Alcaraz OSA - 12/29/2023 9:13 AM EST Pt was urged at her last appointment to call her insurance and find our what weight loss meds are covered and below is a list. Wegovy Phenterimine Andrea Charles/[place] documented in this encounter Plan of Treatment Upcoming Encounters Date Type Department Care Team (Late st Contact Info) Description 04/09/2024 9:00 AM EDT Telemedicine Nutrition & Weight Management, [place] [address] [place] [address] Rach River RDN [address] [place] [address] 05/07/2024 1:40 PM EDT Office Visit Family Practice [facility] [place] [address] [place] [address] Ledy Vizcaino MD [address] [place] [address] Scheduled Procedures Name Priority Associated Diagnoses Date/Ti me COLONOSCOPY FLEXIBLE PROXIMAL DIAGNOSTIC Recall History of colon polyps Health Maintenance Due Date Last Done Comments COVID-19 Vaccine ( season) 2023 08/26/2021, 08/06/2021 Depression, Most Recent Score >= 10 (will fire each visit until score < 10) 01/20/2024 01/19/2024 Influenza Vaccine (FLU shot) (Season Ended) 2024 11/24/2021, 12/23/2020, 08/03/2018 Mammogram 09/26/2024 09/26/2023, 07/24, 08/11/2023, Additional history exists Colonoscopy 11/13/2025 11/13/2020, [...] filedocumented as of this encounter Care Teams Price Changer Relationship Specialty Start Date End Date Hernan Dominguez III, MD [address] [place] [address] PCP - General Family Medicine 06/05/20 documented as of this encounter
--- OUTSIDE RECORDS SUMMARY | 2024-08-23 00:33 | External Medical Summary | Summary of Care ---
Author Name Unknown Organization [facility] Address [address] [place] [address] Phone [phone] Care Team Providers Care Nanotechnology Engineering Technologist Name Role Phone Alberto ODOM MD, Hernan Rocha Primary Care Provider [phone] Reason for Visit * Reason Onset Date Comments Medication Refill 02/29/2024 Encounter Details Date Type Department Care Team (Late st Contact Info) Description 02/29/2024 Refill Nutrition & Weight Management, [place] [address] [place], [place] [id number] Lindy Bains MD [address] [place] [address] Class 2 severe obesity due to excess calories with serious comorbidity and body mass index (BMI) of 36.0 to 36.9 in adult (HCC) Allergies No known active allergiesdocumented as of this encounter (statuses as of 02/29/2024) Medications Medication Sig Dispensed Refills Start Date End Date Status Fluticasone Propionate 50 MCG/ACT Nasal Suspension (Flonase) Administer 2 Sprays into each nostril in the morning. opp hand. 16 g 6 02/04/2023 Active Ondansetron HCl 4 MG Oral TabletIndications:N ausea and vomiting, unspecified vomiting type Take 1 Tablet by mouth every 6 hours as needed for Nausea. 30 Tablet 0 08/02/2023 Active traZODone HCl 100 MG Oral [...] once a week. 2 mL 2 02/29/2024 Active Wegovy 0.25 MG/0.5ML Subcutaneous Solution [...] mgIndications:Bipolar 2 disorder (HCC) 300 mg IM [id number] 01/20/2024 Active CAM MISCELLANEOUS MEDICATION 300 mgIndications:Bipolar 2 disorder (HCC) 300 mg IM [id number] 01/20/2024 Active documented as of this encounter (statuses as of 02/29/2024) Active Problems Problem Noted Date Diagnosed Date Food insecurity 10/03/2023 Overview: Per [facility] Protocol Gastro-esophageal reflux disease without esophag itis 03/07/2023 Class 2 severe obesity with serious comorbidity and body mass index (BMI) of 36.0 to 36.9 in adult 02/04/2023 Bipolar affective disorder, currently manic, mod erate 10/27/2021 documented as of this encounter (statuses as of 02/29/2024) Immunizations Name Administration Dates Next Due COVID-19 mRNA, LNP-s, No Pre serve, 2-Dose Series ([employer]) 08/26/2021,08/06/2021 Hepatitis B, 0-19 yrs 11/26/2010 Hepatitis B, 20+ yrs 11/26/2010,07/28/2010,05/26 Pneumococcal Conjugate Vacci ne, 20-valent ([id number]) 06/10/2022 Pneumococcal Polysaccharide PPV23 (Pneumovax) 07/14/2020 Seasonal [...] encounter Miscellaneous Notes * Telephone Encounter - Mike Melara RPh - 02/29/2024 4:10 PM EDT Rerouting [place] to [facility] pharmacy per patient request. Mike Melara, Pharm D Specialty Clinical Pharmacist [facility] 02/29/2024,4:10 PM documented in this encounter Plan of Treatment Upcoming Encounters Date Type Department Care Team (Late st Contact Info) Description 03/22/2024 10:30 AM EDT Telemedicine Psychiatry, [place] [address] [place] [address] Adriel Bro CRNP [address] [place] [address] 05/07/2024 12:20 PM EDT Office Visit Family Practice [facility] [place] [address] [facility] [place] [address] Hernan Dominguez III, MD [address] [facility] [place] [address] Scheduled Procedures Name Priority Associated Diagnoses Date/Ti [...] (HCC) documented in this encounter Care Teams Nanotechnology Engineering Technologist Relationship Specialty Start Date End Date Hernan Dominguez III, MD [address] [place] [address] PCP - General Family Medicine 06/05/20 documented as of this encounter
--- OUTSIDE RECORDS SUMMARY | 2024-08-23 00:33 | External Medical Summary | Summary of Care ---
Author Name Unknown Organization [facility] Address [address] [place] [address] Phone [phone] Care Team Providers Care Bartender Manager Name Role Phone Alberto ODOM MD, Hernan Rocha Primary Care Provider [phone] Reason for Visit * Reason Comments Weight Management Encounter Details Date Type Department Care Team (Late st Contact Info) Description 02/29/2024 2:00 PM EDT Telemedicine Nutrition & Weight Management, [place] [address] [place], [place] [id number] Lindy Bains MD [address] [place] [address] Abnormal weight gain*; Class 2 severe obesity due to excess calories with serious comorbidity and body mass index (BMI) of 36.0 to 36.9 in adult (HCC); Bipolar 1 disorder ([facility]) Allergies No known active allergiesdocumented as of [...] mgIndications:Bipolar 2 disorder (HCC) 300 mg IM [id number] 01/20/2024 Active CAM MISCELLANEOUS MEDICATION 300 mgIndications:Bipolar 2 disorder (HCC) 300 mg IM [id number] 01/20/2024 Active documented as of this encounter [...] yrs 11/26/2010,07/28/2010,05/26 Pneumococcal Conjugate Vacci ne, 20-valent ([id number]) 06/10/2022 Pneumococcal Polysaccharide PPV23 (Pneumovax) 07/14/2020 Seasonal [...] as of this encounter Progress Notes * Lindy Bains MD - 02/29/2024 2:09 PM EDT [facility] RET[facility] Referring Physician: Hernan Dominguez III, MD Patient location: HOME. I was in a hospital or clinic location. After connecting through [employer],patient was verified with two unique identifiers. 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 who presents to the [facility] for further recommendations. First seen by [facility] in 11/2023 @ 220 lbs, BMI 37 Wt Readings from Last 8 Encounters: 01/19/24 104.3 kg (230 lb) 11/07/23 100.2 kg (220 lb 12.8 oz) 09/30/23 98.6 kg (217 lb 6.4 oz) 08/02/23 89.8 kg (198 lb 1.3 oz) 07/15/23 88.9 kg (196 lb) 03/07/23 95.4 kg (210 lb 6.4 oz) 02/04/23 96 kg (211 lb 9.6 oz) 06/10/22 92.1 kg (203 lb 1.9 oz) Pt reported weight today is 217 lbs TESSA 12/17 @ 220 lbs Wt change since then -->> -3 lbs Wt change from initial visit -->> -3 lbs Wegovy approved by insurance but patient unable to fill due to stock Patient would like to try other medications. Current Diet: Describes typical diet history/24 hr recall Breakfast: coffee (cream and sugar), cottage cheese or granola bar Lunch: cheese stick Snack: cheese stick Dinner: salad (roseline, carrots, crutons, cheese, stephens, basalmic vinegar dressing). Snacks: "problem area" usually something sweet Drinks: 3 cups coffee+sugar+creamer, Restaurant meals: once a week Activity: ADL Walk to work 10 min Track steps Review of patient's allergies indicates: No Known Allergies Current Outpatient Medications Medication Sig Dispense Refill Topiramate 25 MG Oral Tablet (topAMAX) Take 30-60 minutes before supper. Start with 1 tablet (25 mg) daily x3 days, then increase to 2 tablets (50 mg) daily x3 days, then increase to 3 tablets (75 mg) daily. 90 Tablet 1 Fluticasone Propionate 50 MCG/ACT Nasal Suspension (Flonase) [...] mouth in the morning. 30 Tablet 2 Wegovy 0.25 MG/0.5ML Subcutaneous Solution Auto-injector (Semaglutide-Weight Management) Inject 0.25 mg under the skin once a week. 2 mL 2 Current Facility-Administered Medications Medication Dose Route Frequency [...] no BMI greater than 35 kg/m2? yes; There is no height or weight on file to calculate BMI. Patient 50 years or older? no; 43 [...] bipolar disorder Stress/emotional/boredom eating: Yes Physical Examination: There were no vitals taken for this visit. Constitution: well appearing and no acute distress HEENT: appears normocephalic and atraumatic, normal sclera. Colored contact lenses. Very long falseeyelashes. Neck: appears mobile with no limitation Cardiovascular: appears well perfused Lungs: appears to have normal respiratory effort, talking comfortably with no distress or work of breathing. No audible cough or wheeze. Extremities: b/l UE appear normal with normal tone as holds the phone up in hands Skin: no visible rashes on face Neuro: awake, alert, appropriately interactive, normal speech, no gross focal deficits Psych: calm mood and affect Hemoglobin AIC Results: Lab Results Component Value Date/Time HEMOGLOBIN A1C - [facility] 5.2 03/07/2023 11:56 AM Assessment and Recommendation: Ms. Box is a 43 year old female patient with a past medical history listed above, who [facility]sto the [facility] for further recommendations. Abnormal weight gain There is no height or weight on file to calculate BMI. Class II obesity. BMI 39 Discussed weight management options and would like to proceed with conservative, & medication weight management. Wegovy on backorder. Will go ahead and place order so that patient is on pharmacy wait list In the meantime will try topiramate. Discussed medication indication and side effects. Provided printed information on medication. All questions answered to patient's satisfaction. Patient is aware of teratogenic effects from topiramate. Current control is IUD. Patient is aware of nephrolithiasis risk. Discussed eating more regularly during the day. Easy go to snacks. Meal prep in bulk, and planning ahead. Barriers are consistency. Motivators are feeling better, avoiding/reducing comorbid conditions. Patient goals were discussed in detail at visit. GOALS: - Discussed eating more regularly during the day. Easy go to snacks. Meal prep in bulk, and planning ahead. - try topiramate in the evening to help with portions and snacking. Patient will need to be seen inperson before phentermine is considered (patient is aware of this and verbalizes understanding). - if topiramate ineffective or not tolerated and patient is still unable to get Wegovy consider trying Contrave. Was on Wellbutrin in the past no significant negative side effects. Would want to be sure this is appropriate with psych before initiating. Bipolar Depression - stable on current meds I spent a total of 40-54 minutes (exact time 40 mins) on the date of service in [...] meantime with any further concerns or questions. RTC 2-3 months Lindy Bains MD documented in this encounter Plan of Treatment Upcoming Encounters Date Type Department Care Team (Late st Contact Info) Description 03/22/2024 10:30 AM EDT Telemedicine Psychiatry, [facility] [address] [place] [address] Adriel Bro CRNP [address] [place] [address] 05/07/2024 12:20 PM EDT Office Visit Family Practice [place] [facility] [address] [facility] [place] [address] Hernan Dominguez III, MD [address] [facility] [place] [address] Scheduled Procedures Name Priority Associated Diagnoses Date/Ti [...] as of this encounter Visit Diagnoses Diagnosis Abnormal weight gain- Primary Class 2 severe obesity due to excess calories with serious comorbidity and body mass index (BMI) of 36.0 to 36.9 in adult (HCC) Bipolar 1 disorder (HCC) Bipolar I disorder, most recent episode (or current) unspecified documented in this encounter Care Teams Bartender Manager Relationship Specialty Start Date End Date Hernan Dominguez III, MD [address] [place] [address] PCP - General Family Medicine 06/05/20 documented as of this encounter
--- OUTSIDE RECORDS SUMMARY | 2024-08-23 00:33 | External Medical Summary | Summary of Care ---
Author Name Unknown Organization [facility] Address [address] [place] [address] Phone [phone] Care Team Providers Care Hydro Station Supervisor Name Role Phone Alberto ODOM MD, Hernan Rocha Primary Care Provider [phone] Reason for Visit * Reason Onset Date Comments Advice 03/22/2024 Encounter Details Date Type Department Care Team (Late st Contact Info) Description 03/22/2024 Telephone Gastroenterology, [place] [address] [place] [address] Lindy Bains MD [address] [place] [address] Advice Allergies No known active allergiesdocumented as of this encounter (statuses as of 03/22/2024) Medications Medication Sig Dispensed Refills Start Date [...] (BMI) of 36.0 to 36.9 in adult ([facility]) Inject 0.25 mg under the skin once a week. 2 mL 2 02/29/2024 Active Hospital, Clinic, or Other Facility Administered Medication Ordered Dose Route Frequency Start Date End Date Status ARIPiprazole ER (Abilify Maintena) IM inj vial 300 mgIndications:Bipolar 2 disorder (HCC) 300 mg IM [id number] 01/20/2024 Active CAM MISCELLANEOUS MEDICATION 300 mgIndications:Bipolar 2 disorder (HCC) 300 mg IM [id number] 01/20/2024 Active documented as of this encounter (statuses as of 03/22/2024) Active Problems Problem Noted Date Diagnosed Date Food insecurity 10/03/2023 Overview: Per [facility] Protocol Gastro-esophageal reflux disease without esophag itis 03/07/2023 Class 2 severe obesity with serious comorbidity and body mass index (BMI) of 36.0 to 36.9 in adult 02/04/2023 Bipolar affective disorder, currently manic, mod erate 10/27/2021 documented as of this encounter (statuses as of 03/22/2024) Immunizations Name Administration Dates Next Due COVID-19 mRNA, LNP-s, No Pre serve, 2-Dose Series ([employer]) 08/26/2021,08/06/2021 Hepatitis B, 0-19 yrs 11/26/2010 Hepatitis B, 20+ yrs 11/26/2010,07/28/2010,05/26 Pneumococcal Conjugate Vacci ne, 20-valent ([id number]) 06/10/2022 Pneumococcal Polysaccharide PPV23 (Pneumovax) 07/14/2020 Seasonal [...] AM EDT Telemedicine Nutrition & Weight Management, [place] [address] [place] [address] Rach River RDN [address] [place] [address] 05/07/2024 12:20 PM EDT Office Visit Family Practice [facility] [place] [address] [facility] [place] [address] Hernan Dominguez III, MD [address] [facility] [place] [address] Scheduled Procedures Name Priority Associated Diagnoses Date/Ti [...] filedocumented as of this encounter Care Teams Hydro Station Supervisor Relationship Specialty Start Date End Date Hernan Dominguez III, MD [address] [facility] [place] [address] PCP - General Family Medicine 06/05/20 documented as of this encounter
--- OUTSIDE RECORDS SUMMARY | 2024-08-23 00:33 | External Medical Summary | Summary of Care ---
Author Name Unknown Organization [facility] Address [address] [place] [address] Phone [phone] Care Team Providers Care Scleroscope Tester Name Role Phone Alberto ODOM MD, Hernan Rocha Primary Care Provider [phone] Reason for Visit * Reason Onset Date Comments Advice 11/29/2023 Encounter Details Date Type Department Care Team (Late st Contact Info) Description 11/29/2023 Telephone Gastroenterology, [place] [address] [place] [address] Mee Charles MD [address] [place] [address] Advice Allergies No known active allergiesdocumented as of this encounter (statuses as of 02/28/2024) Medications Medication Sig Dispensed Refills Start Date [...] at bedtime. 90 Tablet 1 11/24/2023 Active documented as of this encounter (statuses as of 02/28/2024) Active Problems Problem Noted Date Diagnosed Date Food insecurity 10/03/2023 Overview: Per [facility] Protocol Gastro-esophageal reflux disease without esophag itis 03/07/2023 Class 2 severe obesity with serious comorbidity and body mass index (BMI) of 36.0 to 36.9 in adult 02/04/2023 Bipolar affective disorder, currently manic, mod erate 10/27/2021 documented as of this encounter (statuses as of 02/28/2024) Immunizations Name Administration Dates Next Due COVID-19 mRNA, LNP-s, No Pre serve, 2-Dose Series ([employer]) 08/26/2021,08/06/2021 Hepatitis B, 0-19 yrs 11/26/2010 Hepatitis B, 20+ yrs 11/26/2010,07/28/2010,05/26 Pneumococcal Conjugate Vacci ne, 20-valent ([id number]) 06/10/2022 Pneumococcal Polysaccharide PPV23 (Pneumovax) 07/14/2020 Seasonal [...] Encounter - Mee Charles MD - 01/13/2024 8:16 AM EDT Noted. MyG msg sent * Telephone Encounter - Jasmina Martin OSA - 11/29/2023 12:08 PM EST Patient's insurance will pay for Phentermine, Saxanda, and Wegovy. Patient's number is [phone] you need to speak to her. Thanks documented in this encounter Plan of Treatment Upcoming Encounters Date Type Department Care Team (Late st Contact Info) Description 03/22/2024 10:30 AM EDT Telemedicine [facility], [facility] [address] [place] [address] Adriel Bro CRNP [address] [place] [address] 05/07/2024 12:20 PM EDT Office Visit Family Practice [facility] [address] [place] [address] Hernan Dominguez III, MD [address] [facility] [place] [address] Scheduled Procedures Name Priority Associated Diagnoses Date/Ti [...] filedocumented as of this encounter Care Teams Scleroscope Tester Relationship Specialty Start Date End Date Hernan Dominguez III, MD [address] [facility] [place] [address] PCP - General Family Medicine 06/05/20 documented as of this encounter
--- NOTE | 2024-08-23 00:53 | CT Scan Report ---
Exam(s): CT HEAD Without Contrast EXAM: CT Head Without Intravenous Contrast CLINICAL HISTORY: Reason for exam: AMS. TECHNIQUE: Axial computed tomography images of the head/brain without intravenous contrast. CTDI is 38.17 mGy and DLP is 625.8 mGy-cm. Automated exposure control was utilized for the study. A dose lowering technique was utilized adhering to the principles of ALARA. COMPARISON: No relevant prior studies available. FINDINGS: Brain: Unremarkable. No hemorrhage. No significant white matter disease. No edema. Ventricles: Unremarkable. No ventriculomegaly. Bones/joints: Unremarkable. No acute fracture. Soft tissues: Unremarkable. Sinuses: Unremarkable as visualized. No acute sinusitis. Mastoid air cells: Unremarkable as visualized. No mastoid effusion. IMPRESSION: Normal head/brain CT. Electronically signed by: Benedict Alfaro MD 08/23/24 00:52 AM
[2024-08-23] MEDS ORDERED: OLANZapine 5 MG TABLET PO PRN (01:08)
[2024-08-23] MEDS ORDERED: NICOTINE POLACRILEX 2 MG GUM MT PRN (01:09)
[2024-08-23] MEDS ORDERED: SODIUM CHLORIDE 0.65% NA SOLN 45 ML (OCEAN) PRN (01:09)
[2024-08-23] MEDS ORDERED: ALUMINUM/MAGNESIUM SUSP 30 ML UDC PO PRN (01:09)
[2024-08-23] MEDS ORDERED: MAGNESIUM HYDROXIDE SUSP 30 ML UDC PO PRN (01:09)
[2024-08-23] MEDS ORDERED: BISMUTH SUBSALICYLATE 262 MG CHEW PO PRN (01:09)
[2024-08-23] MEDS: hydrOXYzine HCl 25 MG TAB PO PRN ×2 (01:35→03:25)
[2024-08-23] MEDS: NICOTINE 21 MG/24 HR TDSY TD SCH (08:23)
--- NOTE | 2024-08-23 09:11 | History & Physical ---
Date of Service August 23, 2024 Impression / Recommendations Impression VIGNESH RODRIGUEZ is a 43-year-old F who currently lives in [place] alone, has a history of BPAD, and was admitted on 08/23/24 00:31 on a 201 voluntary commitment for confusion and concerns for lack of self-care. Diagnostically consistent with unspecified mood disorder with differential including substance-induced or withdrawal given excessive Mucinex use vs catatonia with severe depression given significant latency and thought blocking and slight hyponatremia suggestive of possible recent poor intake and recent medication non-adherence vs unspecified psychosis with thought blocking due to internal stimuli vs 2/2 medical cause given recent UTI (though cleared medically by ED provider and labwork unrevealing for cause of significant confusion). Discussed medication treatment options in detail. Discussed risks, benefits and alternatives. Patient would like to start and consented to restarting [employer] Abilify 20mg daily, and [employer] lamictal at starting dose given she is estimated to have missed >4 days for unspecified mood disorder/psychosis. She is also agreeable to ativan trial given concern for possible catatonia. Reviewed side effects including but not limited to: movement (TD, NMS), cardiac (QTc prolongation), and metabolic (stroke, insulin resistance) and necessity for fasting lipid and glucose labwork and AIMS done with score of 0 and potential for fatal rash/SJS with lamictal, misuse potential/respiratiry suppression with ativan The patient's use history and negative consequences suggests substance use disorder. Will attempt to engage her in motivational interviewing as her thought process and recollection of recent use improves. MNPR Overall I spent a total of 75 minutes for this admission including review of chart records, review of labwork, direct evaluation of the patient, counseling the patient, ordering medication, risk assessment, discussion with the psychiatric liason RN and documentation in the electronic health record. (1) Unspecified mood [affective] disorder: (2) Dextromethorphan use disorder, moderate: (3) Psychosis: Psychosis type: unspecified psychosis type Qualified Code(s): F29 - Unspecified psychosis not due to a substance or known physiological condition (4) Catatonia: (5) Noncompliance with medication regimen: Plan 08/23/2024: The patient was admitted to the [facility] ([facility]) on q15 min checks (behavioral with suicide precautions) for safety. The patient will participate in group, recreational, and milieu therapies and will be offered additional individual and family sessions as clinically appropriate. -Ativan trial for possible catatonia 1mg TID po -Restart abilify 20mg daily -Restart lamictal at starting dose 25mg daily -Fasting lipid panel and HbA1c tomorrow AM Inventory Assets Strengths: supportive relationships, willing to get treatment Needs: safety and stabilization, medication adjustment, additional coping skills, in creased outpatient services Suicide Risk Level Suicide Risk Level: Moderate (q15 min suicide checks) (denies SI but presents with significant confusion and symptoms of possible depression, feels safe in the hospital and feels able to ask for support) Suicide Risk Level Comments: Risk Factors Assessment Male: No : Yes Do You Have Access To A Gun?: No Mental Health Diagnoses: Yes Substance Use Disorders: Yes Previous Attempt: Yes Previous Psychiatric Hospitalization: Yes Protective Factors Assessment Employed: Yes Stable Relationships: Yes Psychiatric History Identifying Data VIGNESH RODRIGUEZ is a 43-year-old F who currently lives in [place] alone, has a history of BPAD, and was admitted on 08/23/24 00:31 on a 201 voluntary commitment for confusion and concerns for lack of self-care. Chief Complaint "I can't think of the year". History of Present Illness She presents for psychiatric admission for increased confusion and lack of medication adherence and brought in by police after her partner requested a wellness check. She notes "I couldn't remember anything really". Today she is alert and oriented to hospital name, city, month but not the year. States she is in the hospital because "I forgot my medication". She doesn't know the timeline for this stating "I'm not really sure to be honest". Asked about days vs weeks vs months she pauses for > 1 minute and then reports "if it's long enough for me to lose time then it probably would have been like a week or so". "My boyfriend called the police on me because I hadn't spoken to him for I'm thinking more than a couple days". She denies any history of episodes like this "not really" but does recall her "boyfriend had to" and then stops and pasues for more than two minutes. When prompted she re-iterates this statement again with a long pause as she reports "he had to call police no, sorry I'm just trying to think of what he had to do". Reports her mood as "tired". Reflecting on her difficulty recalling and speaking she feels "it's kind of both" in terms of finding it challenging to retrieve what she wants to say and to express it. She reports more difficulty moving around. Typically talks to her bf "a couple times a day" but isn't sure why she hasn't talked to him recently. She has missed work recently. She can't recall what she was doing the last few days prior to admission, thinks maybe she was lying on the couch. She denies any symptoms of depression "no", nor anxiety "no", nor hallucinations "no". Asked why she thinks she's been missing work and not talking to her partner and had to come to the hospital she reflects "I don't know to be honest". Psychiatric ROS unable to be completed due to her latency and thought blocking. Later in the afternoon she told one of the RN's she has been abusing Mucinex and thinks she's been taking 6-8 pills per day with last use earlier this week. Past Psychiatric History Current Psychiatric Diagnosis: "I don't recall" Outpatient Services: psychological operations officer [facility] Previous Psych Admissions: unclear Do You Have Access To A Gun?: No History of Previous Suicide Attempt: Yes ("a long time ago") Describe Attempts in the Past: overdose on vodka and tylenol Past Medication Trials: unclear Allergies Allergy/AdvReac Type Severity Reaction Status Date / Time No Known Allergies Allergy Unverified 04/28/20 10:52 Home Medications Medication Instructions Recorded Confirmed Type levonorgestrel 21 mcg/24 hr (up to 20 mcg intrauterine UNKNOWN 07/02/19 08/22/24 History 8 years) 52 mg intrauterine device (Mirena) aripiprazole 20 mg tablet 20 mg PO DAILY 08/22/24 08/22/24 History lamotrigine 200 mg tablet 200 mg PO DAILY 08/22/24 08/22/24 History trazodone 100 mg tablet 100 mg PO PM 08/22/24 08/22/24 History Family History Family History of: Doesn't Know Alcohol History Hx of Alcohol Use Over the Past 12 Months: No AUDIT Total Score: 2 Reports history of alcohol misuse in the past ("I don't know, not that I can think of"), denies current issues Smoking Use Have You Smoked or Used Tobacco Products in the Last 30 Days: Yes tobacco type: cigarettes Smoking Status: Current every day smoker Smoking packs per day: 2 Substance History Hx of Prescription Med Misuse Over the Past 12 Months: No Hx of Over the Counter Med Misuse Over the Past 12 Months: No Hx of Inhalent Misuse Over the Past 12 Months: No Hx of Organic Substance Use Over the Past 12 Months: No Hx of Illegal Substances/Street Drug Use Over Past 12 Months: No Problems as a Result of Past Substance Use: None Identified Problems as a Result of Past Substance Use Comments: none Personal History Living Arrangements: Apartment 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 ([employer] ) Marital Status: Single (has been with long distant bf for more than a year) Beliefs That Will Affect Care: None Patient History Medical History Uterine fibroid Alcohol overdose Tylenol overdose Dextromethorphan overdose Major depression PID (acute pelvic inflammatory disease) Kidney stone Surgical History History of delivery Status post rotator cuff repair History of arthroscopy of right shoulder Social History Smoking Status: Current every day smoker Tobacco Type: Cigarettes packs per day: 0.5; Do You Dip or Chew Tobacco: No; Hx Alcohol Use: No Hx Substance Use: No Preferred Language: Georgian Communication Ability: Effective Compensator Worker Required: No Beliefs That Will Affect Care: None marital status: Single current occupational status: employed Feels Safe at Home: Yes Gender Identity: Female Review of Systems Review of Systems: Unobtainable due to mental health condition Physical Exam Psychiatric: Orientation: alert and oriented x 3 Apperance: appropriately dressed and + disheveled (malodorous) Eye Contact: + poor eye contact Motor Behavior: no abnormal motor movements Speech: + abnormal rate/rhythm/volume of speech (prominent latency ) Affect: + depressed affect and + anxious affect Mood: + depressed mood and + anxious mood Thought Process: + thought blocking (significant) Thought Content: reality based without delusions Suicidal Thoughts: denies suicidal thoughts, denies suicidal plan and denies suicidal intent Homicidal Thoughts: denies homicidal thoughts Hallucinations: no auditory hallucinations and no visual hallucinations Cognition: remote memory grossly intact, attention grossly intact and language grossly intact; + recent memory not intact Estimated Intelligence: consistent with education level Insight: + poor insight Judgment: + limited judgement Vital Signs (Past 24 Hours): Last Vital Signs Temp 36.6 C 08/23/24 01:12 Pulse 100 H 08/23/24 01:12 Resp 20 08/23/24 01:12 BP 128/83 08/23/24 01:12 Pulse Ox 98 08/23/24 01:12 O2 Del Method Room Air 08/23/24 01:12 Exam Statement: A physical exam was performed in the ED by Dr. Le for the purposes of medical clearance. I accept that physical as correct and adequate for the purposes of the inpatient physical exam. Results & Data ([facility]) Laboratory Results Laboratory Results - last 24 hr 08/22/24 08/22/24 08/22/24 20:22 20:35 21:48 WBC 11.69 H RBC 5.23 Hgb 17.6 H Hct 49.9 H MCV 95.4 MCH 33.7 MCHC 35.3 RDW Std Deviation 45.2 RDW Coeff of Karen 13.0 Plt Count 503 H MPV 8.7 L Immature Gran % (Auto) 1.1 Neut % (Auto) 64.6 Lymph % (Auto) 23.4 [place] % (Auto) 9.9 Eos % (Auto) 0.5 Baso % (Auto) 0.5 Neut # (Auto) 7.54 H Lymph # (Auto) 2.74 [place] # (Auto) 1.16 H Eos # (Auto) 0.06 Baso # (Auto) 0.06 Immature Gran # (Auto) 0.13 VBG pH 7.40 VBG pCO2 43 VBG pO2 32 VBG HCO3 27 VBG O2 Saturation < 60.0 VBG Base Excess 1.5 Sodium 134 L Potassium 3.8 Chloride 100 Carbon Dioxide 18 L Anion Gap 16 H BUN 28 H Creatinine 0.77 Est Cr Clr Drug Dosing Not Reportable eGFR 98.10 BUN/Creatinine Ratio 36.4 H Glucose 132 H Calcium 9.5 Total Bilirubin 1.0 AST 30 ALT 62 H Alkaline Phosphatase 77 Total Protein 8.0 Albumin 4.7 Globulin 3.3 Albumin/Globulin Ratio 1.4 TSH 1.100 HCG, Qual Negative Urine Color Dark Yellow Urine Appearance Cloudy A Urine pH 5.5 Ur Specific [place] 1.034 H Urine Protein 1+ H Urine Glucose (UA) Negative Urine Ketones 2+ H Urine Blood Negative Urine Nitrite Negative Urine Bilirubin 2+ H Urine Urobilinogen Negative Ur Leukocyte Esterase Negative Urine WBC (Auto) 0-5 Urine RBC (Auto) 3-5 H U Hyaline Cast (Auto) 0-2 U Epithel Cells (Auto) 11-20 H Urine Bacteria (Auto) 3+ H Salicylates < 3.0 L Urine Opiates Screen Neg Ur Methadone, Qual Neg Urine Fentanyl Screen Neg Acetaminophen < 3 L Urine Barbiturates Neg Ur Phencyclidine (PCP) Neg U Amphetamin/Meth Scrn Neg MDMA (Ecstasy) Screen Neg U Benzodiazepines Scrn Neg Ur Cocaine Metabolite Neg U Marijuana (THC) Screen Neg Ethyl Alcohol mg/dL < 10.0 SARS-CoV-2, RNA, NAAT NEGATIVE Current Inpatient Medications Current Inpatient Medications: Current Inpatient Medications Acetaminophen (Acetaminophen 325 Mg Tab) 650 mg PO Q4H PRN PRN Reason: Headache or Minor Fever Stop: 09/22/24 01:08 Al Hydrox/Mg Hydrox/Simethicone (Aluminum/Magnesium Susp 30 Ml Udc) 30 ml PO Q4H PRN PRN Reason: GI Upset Stop: 09/22/24 01:08 Bismuth Subsalicylate (Bismuth Subsalicylate 262 Mg Chew) 2 tab PO Q30M PRN PRN Reason: Loose Stool/Diarrhea Stop: 09/22/24 01:08 Hydroxyzine HCl (Hydroxyzine Hcl 25 Mg Tab) 50 mg PO HSZ PRN PRN Reason: Insomnia Stop: 09/22/24 01:08 Last Admin: 08/23/24 01:35 Dose: 50 mg Hydroxyzine HCl (Hydroxyzine Hcl 25 Mg Tab) 25 mg PO Q4H PRN PRN Reason: Anxiety Stop: 09/22/24 01:08 Last Admin: 08/23/24 03:25 Dose: 25 mg Magnesium Hydroxide (Magnesium Hydroxide Susp 30 Ml Udc) 30 ml PO DAILY PRN PRN Reason: Constipation Stop: 09/22/24 01:08 Miscellaneous (Remove Nicoderm Patch) 1 each N/A DAILY@0859 [facility] Stop: 09/22/24 08:58 Last Admin: 08/23/24 08:27 Dose: Not Given Nicotine (Nicotine 21 Mg/24 Hr Tdsy) 1 patch TD QAM WAYNE Stop: 09/22/24 08:59 Last Admin: 08/23/24 08:23 Dose: 1 patch Nicotine Polacrilex (Nicotine Polacrilex 2 Mg Gum) 2 piece MT PRN PRN PRN Reason: Nicotine Withdrawal Symptoms Stop: 09/22/24 01:08 Olanzapine (Olanzapine 5 Mg Tablet) 5 mg PO BID PRN PRN Reason: Agitation Stop: 09/22/24 08:59 Sodium Chloride (Sodium Chloride 0.65% Na Soln 45 Ml (Hardy)) 1 - 2 sprays NA PRN PRN PRN Reason: Nasal Dryness/Congestion Stop: 09/22/24 01:08
[2024-08-23] MEDS: LORazepam 1 MG TAB PO SCH (11:03)
[2024-08-23] MEDS: ARIPiprazole 10 MG TAB PO SCH (11:44)
[2024-08-23] MEDS: lamoTRIgine 25 MG TAB PO SCH (11:45)
[2024-08-24 07:36] LABS: Chol HDL Ratio 4.6 (0-5); Estimated Average Glucose 103 mg/dl; Hemoglobin A1C 5.2 % (4.5-5.6)
--- NOTE | 2024-08-24 09:17 | Psychiatric Progress Note ---
Date of Service August 24, 2024 Impression / Recommendations Impression VIGNESH RODRIGUEZ is a 43-year-old F who currently lives in [place] alone, has a history of BPAD, and was admitted on 08/23/24 00:31 on a 201 voluntary commitment for confusion and concerns for lack of self-care. Diagnostically consistent with unspecified mood disorder with differential including substance-induced or withdrawal given excessive Mucinex use vs catatonia with severe depression given significant latency and thought blocking and slight hyponatremia suggestive of possible recent poor intake and recent medication non-adherence vs unspecified psychosis with thought blocking due to internal stimuli vs 2/2 medical cause given recent UTI (though cleared medically by ED provider and labwork unrevealing for cause of significant confusion). A: Ongoing confusion and depression, suspect DXM withdrawal driven mood symptoms. Ongoing support. No evidence for catatonia, ativan discontinued after initial dose. Tolerating re-initiation of abilify and low dose lamictal. Review of recent history per her recollection completed course of 7 day antibiotics for UTI and she denies any current symptoms so no current indication for antibiotic use. HbA1c and lipid panel reviewed, some hyperlipidemia for which statin use and indication can be explored with her PCP after discharge but currently felt to be reasonable to allow for use of abilify given risks/benefit profile of need to treatment possible acute psychiatric symptoms driving current presentation. Started motivation interviewing regarding her DXM use. Motivational interviewing was done as a brief intervention. Intervention was greater than 5 minutes in length and included assessing readiness to quit, advice on how to reduce or abstain and to set a specific goal for this hospitalization. geriatric social worker will also assist in anticipating barriers to reducing or abstaining from substance use and in problem-solving for solutions to those problems while arranging for referral to appropriate treatment. The patient is in contemplative stage with regards to transtheoretical model of change. Recommended decreasing consumption due to disinhibiting effects and potential for worsening psychiatric symptoms. MNPR due to confusion, malodorous Overall, I spent a total of 40 minutes on this case including meeting with the patient, reviewing the chart, nursing report, multidisciplinary team meeting, orders, and documentation. (1) Unspecified mood [affective] disorder: (2) Dextromethorphan use disorder, moderate: (3) Psychosis: (4) Noncompliance with medication regimen: (5) Hyperlipidemia: Plan 08/24/2024: -Continue current medications and tx plan -Consider future use of statin -Likely would benefit from outpatient CM referral 08/23/2024: The patient was admitted to the [facility] ([facility]) on q15 min checks (behavioral with suicide precautions) for safety. The patient will participate in group, recreational, and milieu therapies and will be offered additional individual and family sessions as clinically appropriate. -Ativan trial for possible catatonia 1mg TID po -Restart abilify 20mg daily -Restart lamictal at starting dose 25mg daily -Fasting lipid panel and HbA1c tomorrow AM Inventory Assets Strengths: supportive relationships, willing to get treatment Needs: safety and stabilization, medication adjustment, additional coping skills, increased outpatient services Suicide Risk Level Suicide Risk Level: Moderate (q15 min suicide checks) (denies SI but presents with significant confusion and symptoms of possible depression, feels safe in the hospital and feels able to ask for support) Suicide Risk Level Comments: Risk Factors Assessment Male: No : Yes Do You Have Access To A Gun?: No Mental Health Diagnoses: Yes Substance Use Disorders: Yes Previous Attempt: Yes Previous Psychiatric Hospitalization: Yes Protective Factors Assessment Employed: Yes Stable Relationships: Yes Interval History Identifying Information VIGNESH RODRIGUEZ is a 43-year-old F who currently lives in [place] alone, has a history of BPAD, and was admitted on 08/23/24 00:31 on a 201 voluntary commitment for confusion and concerns for lack of self-care. Chief Complaint "Out of it, not in a good way". Review of Systems Sleep Information Total Hours of Sleep: 6 Sleep Comments: PRN Vistaril x 2 Meal Information Percent Meal Consumed - Breakfast: 25 Percent Meal Consumed - Lunch: 50 Percent Meal Consumed - Dinner: 50 Subjective Subjective Patient was seen & assessed and interval progress reviewed with treatment team nursing and social work. Some nausea last evening but did eat dinner after finding relief from [place], had to leave group due to this. [place] isolative to her room. Apparently doesn't have her cell phone, keys to her apartment, wallet and number she had for a friend as a contact was incorrect. She didn't seem to have any improvement with ativan, rather was more sedated, so this was stopped. Response was inconsistent with what would be expected with catatonia and recent Mucinex with DXM more suggestive of withdrawal confusion. Today reports ongoing confusion and somewhat feels worse subjectively today in terms of this. However, was able to get her partner's number from police and spoke with him which helped her feel better briefly. He was also able to help her get phone numbers to contact her family so her aunt is going to try to bring in some of her items from her apartment like her phone. She denies side effects from restarting lamictal and abilify except the ongoing confusion and sedation. Reports increased depression today and fear that "I'll be here forever", provided reassurance which she was receptive today. She was able to clarify timeline a bit and recalls forgetting to put her medications in her weekly pill container after completing a 7 day course of antibiotics for a UTI and that delayed her sorting her medications. She also restarted Mucinex with DXM she bought at a grocery store last week after one year of sobreity. States she did this because "wanted something different" and "I suppose I hadn't been messed up in awhile" and wanted that feeling. Has been taking 8 pills per day over the last week. Physical Exam Psychiatric Orientation: alert and oriented x 3 Apperance: appropriately dressed and + disheveled (malodorous, eye glasses are broken and tapped together) Eye Contact: + poor eye contact Motor Behavior: no abnormal motor movements Speech: + abnormal rate/rhythm/volume of speech (prominent latency ) Affect: + depressed affect and + anxious affect Mood: + depressed mood and + anxious mood Thought Process: + thought blocking (significant) Thought Content: reality based without delusions Suicidal Thoughts: denies suicidal thoughts, denies suicidal plan and denies suicidal intent Homicidal Thoughts: denies homicidal thoughts Hallucinations: no auditory hallucinations and no visual hallucinations Cognition: remote memory grossly intact, attention grossly intact and language grossly intact; + recent memory not intact (improving) Estimated Intelligence: consistent with education level Insight: + poor insight Judgment: + limited judgement Vital Signs (Past 24 Hours) Last Vital Signs Temp 36.8 C 08/24/24 06:54 Pulse 102 H 08/24/24 06:56 Resp 16 08/24/24 06:54 BP 105/74 08/24/24 06:56 Pulse Ox 98 08/23/24 01:12 O2 Del Method Room Air 08/23/24 01:12 Results & Data ([facility]) Laboratory Results Laboratory Results - last 24 hr 08/24/24 07:06 Estimat Average Glucose 103 Hemoglobin A1c 5.2 Triglycerides 99 Cholesterol 222 H LDL Cholesterol, Calc 154 VLDL Cholesterol, Calc 20 HDL Cholesterol 48 Cholesterol/HDL Ratio 4.6 Current Inpatient Medications Current Inpatient Medications: Current Inpatient Medications Acetaminophen (Acetaminophen 325 Mg Tab) 650 mg PO Q4H PRN PRN Reason: Headache or Minor Fever Stop: 09/22/24 01:08 Al Hydrox/Mg Hydrox/Simethicone (Aluminum/Magnesium Susp 30 Ml Udc) 30 ml PO Q4H PRN PRN Reason: GI Upset Stop: 09/22/24 01:08 Aripiprazole (Aripiprazole 10 Mg Tab) 20 mg PO DAILY [facility] Stop: 09/22/24 10:59 Last Admin: 08/24/24 08:56 Dose: 20 mg Bismuth Subsalicylate (Bismuth Subsalicylate 262 Mg Chew) 2 tab PO Q30M PRN PRN Reason: Loose Stool/Diarrhea Stop: 09/22/24 01:08 Hydroxyzine HCl (Hydroxyzine Hcl 25 Mg Tab) 50 mg PO HSZ PRN PRN Reason: Insomnia Stop: 09/22/24 01:08 Last Admin: 08/23/24 01:35 Dose: 50 mg Hydroxyzine HCl (Hydroxyzine Hcl 25 Mg Tab) 25 mg PO Q4H PRN PRN Reason: Anxiety Stop: 09/22/24 01:08 Last Admin: 08/24/24 03:40 Dose: 25 mg Lamotrigine (Lamotrigine 25 Mg Tab) 25 mg PO DAILY [facility]; Protocol Stop: 09/22/24 10:59 Last Admin: 08/24/24 08:57 Dose: 25 mg Magnesium Hydroxide (Magnesium Hydroxide Susp 30 Ml Udc) 30 ml PO DAILY PRN PRN Reason: Constipation Stop: 09/22/24 01:08 Miscellaneous (Remove Nicoderm Patch) 1 each N/A DAILY@0859 [facility] Stop: 09/22/24 08:58 Last Admin: 08/24/24 09:03 Dose: Not Given Nicotine (Nicotine 21 Mg/24 Hr Tdsy) 1 patch TD QAM [facility] Stop: 11/30/24 08:59 Last Admin: 08/24/24 08:59 Dose: 1 patch Nicotine Polacrilex (Nicotine Polacrilex 2 Mg Gum) 2 piece MT PRN PRN PRN Reason: Nicotine Withdrawal Symptoms Stop: 09/22/24 01:08 Sodium Chloride (Sodium Chloride 0.65% Na Soln 45 Ml ([place])) 1 - 2 sprays NA PRN PRN PRN Reason: Nasal Dryness/Congestion Stop: 09/22/24 01:08 Mental Health & Subst Abuse Tx Psychiatrist Date Of Appointment With Psychiatric Provider: doesn't know Therapist Name of Therapist: None Manager Budget Name of Manager Budget: None Post Discharge Appointments Primary Care Physician Name Of Family Doctor/PCP: Alberto (3) Psychosis Psychosis type: unspecified psychosis type Qualified Code(s): F29 - Unspecified psychosis not due to a substance or known physiological condition
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
[2024-08-25] MEDS: ACETAMINOPHEN 325 MG TAB PO PRN (15:57)
[2024-08-25] MEDS: IBUPROFEN 600 MG TAB PO PRN (17:56)
[2024-08-26] MEDS ORDERED: guaiFENesin 600 MG TABCR PO PRN (08:59)
[2024-08-26] MEDS: BENZOCAINE/MENTHOL 18 LOZ/1 BOX MT PRN (09:58)
[2024-08-26] MEDS: NALTREXONE HCL 50 MG TAB PO ONE (12:28)
[2024-08-26] MEDS: FLUoxetine HCL 10 MG CAP PO ONE (12:28)
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
--- NOTE | 2024-08-27 07:42 | Psychiatric Progress Note ---
Date of Service August 27, 2024 Impression / Recommendations Impression VIGNESH RODRIGUEZ is a 43-year-old F who currently lives in [place] alone, has a history of BPAD, and was admitted on 08/23/24 00:31 on a 201 voluntary commitment for confusion and concerns for lack of self-care. Concern for acute confusion secondary to dextromethorphan abuse and diphenhydramine dependence, unspecified mood disorder with differential including substance induced, MDD, Bipolar depression, anticholinergic and antihistamine withdrawal. Chronic diphenhydramine dependence can cause memory issues, confusion, irritability, anxiety, mood swings, dry mouth, constipation, blurred vision, and urinary retention. Withdrawal can result in restlessness, agitation, N/V, diaphoresis, insomnia, rebound allergy symptoms. A: Patient appears more lucid today with an improved thought process. Conducted motivational interviewing the patient reports using drugs longer than intended, spending excessive money to obtain drugs, associated dysfunction in relationships, personal responsibilities, work responsibilities. Patient appears contemplative about quitting however states current plans to abstain. Experiencing withdrawal symptoms from chronic diphenhydramine dependence. MNPR due to confusion, malodorous Overall, I spent a total of 40 minutes on this case including meeting with the patient, reviewing the chart, nursing report, multidisciplinary team meeting, orders, and documentation. (1) Bipolar depression: (2) Dextromethorphan use disorder, moderate: (3) Other psychoactive substance dependence with withdrawal, uncomplicated: (4) Hyperlipidemia: (5) Cluster B personality disorder: Plan 08/27/2024: Start vitamin D 2000 units daily. Start ibuprofen 400 mg twice daily. 08/26/2024: Start naltrexone 25 mg daily and increase to 50 mg tomorrow. Start fluoxetine 10 mg daily, inc to 20mg daily tomorrow. Myriam borderline personality disorder screener. 08/25/2024: PHQ-9 and mood disorder questionnaire. Continue medications and treatment plan. 08/24/2024: -Continue current medications and tx plan -Consider future use of statin -Likely would benefit from outpatient CM referral 08/23/2024: The patient was admitted to the [facility] ([facility] mental health unit) on q15 min checks (behavioral with suicide precautions) for safety. The patient will participate in group, recreational, and milieu therapies and will be offer ed additional individual and family sessions as clinically appropriate. -Ativan trial for possible catatonia 1mg TID po -Restart abilify 20mg daily -Restart lamictal at starting dose 25mg daily -Fasting lipid panel and HbA1c tomorrow AM Inventory Assets Strengths: supportive relationships, willing to get treatment Needs: safety and stabilization, medication adjustment, additional coping skills, increased outpatient services Suicide Risk Level Suicide Risk Level: Moderate (q15 min suicide checks) (denies SI but presents with significant confusion and symptoms of possible depression, feels safe in the hospital and feels able to ask for support) Suicide Risk Level Comments: Risk Factors Assessment Male: No : Yes Do You Have Access To A Gun?: No Mental Health Diagnoses: Yes Substance Use Disorders: Yes Previous Attempt: Yes Previous Psychiatric Hospitalization: Yes Protective Factors Assessment Employed: Yes Stable Relationships: Yes Interval History Identifying Information VIGNESH RODRIGUEZ is a 43-year-old F who currently lives in [place] alone, has a history of BPAD, and was admitted on 08/23/24 00:31 on a 201 voluntary commitment for confusion and concerns for lack of self-care. Chief Complaint "Back pain" Review of Systems Sleep Information Total Hours of Sleep: 6.5 Sleep Comments: PRN Vistaril x 2 Meal Information Percent Meal Consumed - Breakfast: 90 Percent Meal Consumed - Lunch: 100 Percent Meal Consumed - Dinner: 90 Subjective Subjective Patient was seen & assessed and interval progress reviewed with treatment team nursing and social work Nursing reports patient slept 6.5 hours, appearing more lucid. On interview the patient complains of insomnia. Says that her thoughts are clear and that she is able to recall the past a little bit better. Says that her communication has improved. We discussed her past dextromethorphan and diphenhydramine use. Says that she is taking more DM than expected. She initially takes 2 to 3 pills and then increases the use throughout the day. Often forgets how much she took and keeps taking more to get a "buzz". Uses more when she is not working. She reports past attempts to cut down have been successful. She reports main drivers of use is boredom. She spends $15 every 2 days so a total of $2700 yearly for Mucinex DM. She denies having any cravings for drugs. Reports drug problems have caused her to isolate and ignore relationships with her daughter, boyfriend, parents. Often she neglects chores is slower at work. She does not drive and it has not been an issue operating a motor vehicle. She reports plans to stay abstinent. Physical Exam Mental Examination Appearance: Disheveled Eye Contact: Maintains Eye Contact Motor Behavior: Unremarkable Speech: Normal Mood: Euthymic and Calm Affect: Appropriate and Congruent Thought Process: Intact and Linear Thought Content: Disoriented Hallucinations: None Insight: Poor (to limited) Judgement: Poor Vital Signs (Past 24 Hours) Last Vital Signs Temp 36.9 C 08/27/24 06:42 Pulse 100 H 08/27/24 06:43 Resp 16 08/27/24 06:42 BP 103/73 08/27/24 06:43 Pulse Ox 98 08/23/24 01:12 O2 Del Method Room Air 08/23/24 01:12 Results & Data ([facility]) Current Inpatient Medications Current Inpatient Medications: Current Inpatient Medications Acetaminophen (Acetaminophen 325 Mg Tab) 650 mg PO Q4H PRN PRN Reason: Headache or Minor Fever Stop: 09/22/24 01:08 Last Admin: 08/26/24 17:38 Dose: 650 mg Al Hydrox/Mg Hydrox/Simethicone (Aluminum/Magnesium Susp 30 Ml Udc) 30 ml PO Q4H PRN PRN Reason: GI Upset Stop: 09/22/24 01:08 Aripiprazole (Aripiprazole 10 Mg Tab) 20 mg PO DAILY [facility] Stop: 09/22/24 10:59 Last Admin: 08/26/24 08:28 Dose: 20 mg Bismuth Subsalicylate (Bismuth Subsalicylate 262 Mg Chew) 2 tab PO Q30M PRN PRN Reason: Loose Stool/Diarrhea Stop: 09/22/24 01:08 Fluoxetine HCl (Fluoxetine Hcl 20 Mg Cap) 20 mg PO QAM [place] Stop: 09/26/24 08:59 Hydroxyzine HCl (Hydroxyzine Hcl 25 Mg Tab) 50 mg PO HSZ PRN PRN Reason: Insomnia Stop: 09/22/24 01:08 Last Admin: 08/27/24 01:39 Dose: 50 mg Hydroxyzine HCl (Hydroxyzine Hcl 25 Mg Tab) 25 mg PO Q4H PRN PRN Reason: Anxiety Stop: 09/22/24 01:08 Last Admin: 08/24/24 03:40 Dose: 25 mg Ibuprofen (Ibuprofen 600 Mg Tab) 600 mg PO Q8H PRN PRN Reason: pain Stop: 09/24/24 17:59 Last Admin: 08/26/24 20:06 Dose: 600 mg Lamotrigine (Lamotrigine 25 Mg Tab) 25 mg PO DAILY [facility]; Protocol Stop: 09/22/24 10:59 Last Admin: 08/26/24 08:28 Dose: 25 mg Magnesium Hydroxide (Magnesium Hydroxide Susp 30 Ml Udc) 30 ml PO DAILY PRN PRN Reason: Constipation Stop: 09/22/24 01:08 Miscellaneous (Remove Nicoderm Patch) 1 each N/A DAILY@0859 [facility] Stop: 09/22/24 08:58 Last Admin: 08/26/24 08:48 Dose: 1 each Naltrexone HCl (Naltrexone Hcl 50 Mg Tab) 50 mg PO DAILY [facility] Stop: 09/26/24 08:59 Nicotine (Nicotine 21 Mg/24 Hr Tdsy) 1 patch TD QAM [facility] Stop: 09/22/24 08:59 Last Admin: 08/26/24 08:48 Dose: 1 patch Nicotine Polacrilex (Nicotine Polacrilex 2 Mg Gum) 2 piece MT PRN PRN PRN Reason: Nicotine Withdrawal Symptoms Stop: 09/22/24 01:08 Sodium Chloride (Sodium Chloride 0.65% Na Soln 45 Ml ([place])) 1 - 2 sprays NA PRN PRN PRN Reason: Nasal Dryness/Congestion Stop: 09/22/24 01:08 Mental Health & Subst Abuse Tx Psychiatrist Date Of Appointment With Psychiatric Provider: doesn't know Therapist Name of Therapist: None Superintendent Horticulture Name of Superintendent Horticulture: None Post Discharge Appointments Primary Care Physician Name Of Family Doctor/PCP: Alberto
[2024-08-27] MEDS: FLUoxetine HCL 20 MG CAP PO SCH (08:22)
[2024-08-27] MEDS: NALTREXONE HCL 50 MG TAB PO SCH (08:23)
[2024-08-27] MEDS: hydrOXYzine HCl 25 MG TAB PO PRN (10:29)
[2024-08-27] MEDS: CHOLECALCIFEROL 25 MCG (1000 UNITS) TAB PO SCH (10:29)
[2024-08-27] MEDS: IBUPROFEN 200 MG TAB PO SCH (21:33)
--- NOTE | 2024-08-28 10:23 | Discharge Summary ---
Date of Service August 28, 2024 History of Present Illness She presents for psychiatric admission for increased confusion and lack of medication adherence and brought in by police after her partner requested a wellness check. She notes "I couldn't remember anything really". Today she is alert and oriented to hospital name, city, month but not the year. States she is in the hospital because "I forgot my medication". She doesn't know the timeline for this stating "I'm not really sure to be honest". Asked about days vs weeks vs months she pauses for > 1 minute and then reports "if it's long enough for me to lose time then it probably would have been like a week or so". "My boyfriend called the police on me because I hadn't spoken to him for I'm thinking more than a couple days". She denies any history of episodes like this "not really" but does recall her "boyfriend had to" and then stops and pasues for more than two minutes. When prompted she re-iterates this statement again with a long pause as she reports "he had to call police no, sorry I'm just trying to think of what he had to do". Reports her mood as "tired". Reflecting on her difficulty recalling and speaking she feels "it's kind of both" in terms of finding it challenging to retrieve what she wants to say and to express it. She reports more difficulty moving around. Typically talks to her bf "a couple times a day" but isn't sure why she hasn't talked to him recently. She has missed work recently. She can't recall what she was doing the last few days prior to admission, thinks maybe she was lying on the couch. She denies any symptoms of depression "no", nor anxiety "no", nor hallucinations "no". Asked why she thinks she's been missing work and not talking to her partner and had to come to the hospital she reflects "I don't know to be honest". Psychiatric ROS unable to be completed due to her latency and thought blocking. Later in the afternoon she told one of the RN's she has been abusing Mucinex and thinks she's been taking 6-8 pills per day with last use earlier this week. Physical Exam Mental Examination Appearance: Disheveled Eye Contact: Maintains Eye Contact Motor Behavior: Unremarkable Speech: Normal Mood: Euthymic and Calm Affect: Appropriate and Congruent Thought Process: Intact and Linear Thought Content: Disoriented Hallucinations: None Insight: Poor (to limited) Judgement: Poor Vital Signs (Past 24 Hours) Last Vital Signs Temp 36.9 C 08/28/24 09:33 Pulse 100 H 08/28/24 09:33 Resp 16 08/28/24 09:33 BP 109/69 08/28/24 09:33 Pulse Ox 99 08/28/24 09:33 O2 Del Method Room Air 08/27/24 15:48 Principal Diagnosis Bipolar 2 Depression Psychiatric Data See daily stay summary. In short, safety was maintained and the patient was cooperative with care. Medication changes included restarting Lamotrigine from 25mg to 50mg daily given non-adherence, Fluoxetine 20mg daily, and restarting home Abilify 20mg daily, Naltrexone 50mg daily for cravings and they tolerated this well. A family session was held and safety plan was completed prior to discharge. Patient noted to be taking 20-25mg of Diphenhydramine daily and was in antihistamine withdrawal through hospitalization. Recent acute confusion and memory impairments likely precipitating due to combination abuse of dextromethorphan and diphenhydramine. Concern recurrent drug use is a form of self harm seen in Cluster B personality disorders to escape distressing emotions. Patient was more lucid on discharge with a clear thought process and contemplative about abstaining from drugs in the future. She was future oriented to continue pharmacotherapy and to spend time with her boyfriend. Day of Discharge Assessment Today the patient voices readiness for discharge. They note improvement in mood and deny thoughts to harm self or others. Thoughts remain organized and they are improved from admission. There is no evidence of psychosis. They agree to take mediations as prescribed and keep follow-up appointments. They are stable for discharge to outpatient level of care. Transition of Care Transition Of Care Record: was reviewed with the patient Advance Directives Advance Directives Information Provided: No Advance Directives: No Mental Health Advance Directive: No Advance Directives on File: No Living Will: No Power of Coffee Sommelier: No Advance Directives Reason:: Declines as Mental Health Visit. Suicide Risk Level Suicide Risk Level Comments: Risk Factors Assessment Male: No : Yes Do You Have Access To A Gun?: No Mental Health Diagnoses: Yes Substance Use Disorders: Yes Previous Attempt: Yes Previous Psychiatric Hospitalization: Yes Protective Factors Assessment Employed: Yes Stable Relationships: Yes Discharge Data Lab Results 08/22/24 08/22/24 08/22/24 20:22 20:35 21:48 WBC 11.69 H RBC 5.23 Hgb 17.6 H Hct 49.9 H MCV 95.4 MCH 33.7 MCHC 35.3 RDW Std Deviation 45.2 RDW Coeff of Karen 13.0 Plt Count 503 H MPV 8.7 L Immature Gran % (Auto) 1.1 Neut % (Auto) 64.6 Lymph % (Auto) 23.4 Door % (Auto) 9.9 Eos % (Auto) 0.5 Baso % (Auto) 0.5 Neut # (Auto) 7.54 H Lymph # (Auto) 2.74 Door # (Auto) 1.16 H Eos # (Auto) 0.06 Baso # (Auto) 0.06 Immature Gran # (Auto) 0.13 VBG pH 7.40 VBG pCO2 43 VBG pO2 32 VBG HCO3 27 VBG O2 Saturation < 60.0 VBG Base Excess 1.5 Sodium 134 L Potassium 3.8 Chloride 100 Carbon Dioxide 18 L Anion Gap 16 H BUN 28 H Creatinine 0.77 Est Cr Clr Drug Dosing Not Reportable eGFR 98.10 BUN/Creatinine Ratio 36.4 H Glucose 132 H Estimat Average Glucose Hemoglobin A1c Calcium 9.5 Total Bilirubin 1.0 AST 30 ALT 62 H Alkaline Phosphatase 77 Total Protein 8.0 Albumin 4.7 Globulin 3.3 Albumin/Globulin Ratio 1.4 Triglycerides Cholesterol LDL Cholesterol, Calc VLDL Cholesterol, Calc HDL Cholesterol Cholesterol/HDL Ratio TSH 1.100 HCG, Qual Negative Urine Color Dark Yellow Urine Appearance Cloudy A Urine pH 5.5 Ur Specific [place] 1.034 H Urine Protein 1+ H Urine Glucose (UA) Negative Urine Ketones 2+ H Urine Blood Negative Urine Nitrite Negative Urine Bilirubin 2+ H Urine Urobilinogen Negative Ur Leukocyte Esterase Negative Urine WBC (Auto) 0-5 Urine RBC (Auto) 3-5 H U Hyaline Cast (Auto) 0-2 U Epithel Cells (Auto) 11-20 H Urine Bacteria (Auto) 3+ H Salicylates < 3.0 L Urine Opiates Screen Neg Ur Methadone, Qual Neg Urine Fentanyl Screen Neg Acetaminophen < 3 L Urine Barbiturates Neg Ur Phencyclidine (PCP) Neg U Amphetamin/Meth Scrn Neg MDMA (Ecstasy) Screen Neg U Benzodiazepines Scrn Neg Ur Cocaine Metabolite Neg U Marijuana (THC) Screen Neg Ethyl Alcohol mg/dL < 10.0 SARS-CoV-2, RNA, NAAT NEGATIVE 08/24/24 07:06 WBC RBC Hgb Hct MCV MCH MCHC RDW Std Deviation RDW Coeff of Karen Plt Count MPV Immature Gran % (Auto) Neut % (Auto) Lymph % (Auto) Door % (Auto) Eos % (Auto) Baso % (Auto) Neut # (Auto) Lymph # (Auto) Door # (Auto) Eos # (Auto) Baso # (Auto) Immature Gran # (Auto) VBG pH VBG pCO2 VBG pO2 VBG HCO3 VBG O2 Saturation VBG Base Excess Sodium Potassium Chloride Carbon Dioxide Anion Gap BUN Creatinine Est Cr Clr Drug Dosing eGFR BUN/Creatinine Ratio Glucose Estimat Average Glucose 103 Hemoglobin A1c 5.2 Calcium Total Bilirubin AST ALT Alkaline Phosphatase Total Protein Albumin Globulin Albumin/Globulin Ratio Triglycerides 99 Cholesterol 222 H LDL Cholesterol, Calc 154 VLDL Cholesterol, Calc 20 HDL Cholesterol 48 Cholesterol/HDL Ratio 4.6 TSH HCG, Qual Urine Color Urine Appearance Urine pH Ur Specific [place] Urine Protein Urine Glucose (UA) Urine Ketones Urine Blood Urine Nitrite Urine Bilirubin Urine Urobilinogen Ur Leukocyte Esterase Urine WBC (Auto) Urine RBC (Auto) U Hyaline Cast (Auto) U Epithel Cells (Auto) Urine Bacteria (Auto) Salicylates Urine Opiates Screen Ur Methadone, Qual Urine Fentanyl Screen Acetaminophen Urine Barbiturates Ur Phencyclidine (PCP) U Amphetamin/Meth Scrn MDMA (Ecstasy) Screen U Benzodiazepines Scrn Ur Cocaine Metabolite U Marijuana (THC) Screen Ethyl Alcohol mg/dL SARS-CoV-2, RNA, NAAT Hospital Course (1) Bipolar depression: (2) Cluster B personality disorder: (3) Dextromethorphan use disorder, moderate: (4) Other psychoactive substance dependence with withdrawal, uncomplicated: (5) Hyperlipidemia: Plan 08/27/2024: Start vitamin D 2000 units daily. Start ibuprofen 400 mg twice daily. 08/26/2024: Start naltrexone 25 mg daily and increase to 50 mg tomorrow. Start fluoxetine 10 mg daily, inc to 20mg daily tomorrow. Myriam borderline personality disorder screener. 08/25/2024: PHQ-9 and mood disorder questionnaire. Continue medications and treatment plan. 08/24/2024: -Continue current medications and tx plan -Consider future use of statin -Likely would benefit from outpatient CM referral 08/23/2024: The patient was admitted to the [facility] ([facility] mental health unit) on q15 min checks (behavioral with suicide precautions) for safety. The patient will participate in group, recreational, and milieu therapies and will be offered additional individual and family sessions as clinically appropriate. -Ativan trial for possible catatonia 1mg TID po -Restart abilify 20mg daily -Restart lamictal at starting dose 25mg daily -Fasting lipid panel and HbA1c tomorrow AM Mental Health & Subst Abuse Tx Psychiatrist Name of Psychiatrist: Dominick Bro Psychiatrist's Date Of Appointment With Psychiatric Provider: 09/03/24 Time of Appointment with Psychiatrist: 2:30PM Psychiatric Appointment Comment: Video appointment. log into your [facility] "My Chart" and click appt. link Psychiatrist Release of Information: Obtained, Reviewed and Signed Therapist Name of Therapist: Red Crockett Therapist's Date of Therapist Appointment: 09/14/24 Time of Therapist Appointment: 10:00am Therapy Appointment Comment: M[address] [place], [place] [address] Therapist Release of Information: Obtained, Reviewed and Signed Head And Neck Surgeon Name of Head And Neck Surgeon: [facility] - referral made Phone Number for Head And Neck Surgeon: [phone] Case Management Appointment Comment: they will contact you to schedule Head And Neck Surgeon Release of Information: Obtained, Reviewed and Signed Post Discharge Appointments Primary Care Physician Name Of Family Doctor/PCP: Dr. Armani Murrell [facility] Primary Care Date of Future Appointment with PCP: Tuesday08/31/24 Time of Appointment with PCP: 1:40pm Provider Appointment Comment: arrival time 1:20pm Primary Care Release of Information: Obtained, Reviewed and Signed Contact Information Discharge Discharge Address: [address] [place] [address] Discharge Plan Discharge Items Patient Disposition: Home - Self-Care Reason For Visit: SI Discharge Diagnosis: Bipolar depression: Cluster B personality disorder: Dextromethorphan use disorder, moderate: Other psychoactive substance dependence with withdrawal, uncomplicated: Hyperlipidemia: Condition on Discharge: Fair Activity: Resume your previous activity Non-emergency contact: Primary Care Provider and Therapist Call non-emergency contact if: you have any medication questions and your symptoms worsen Follow-up/Referrals: Hernan Dominguez MD [Primary Care Provider] - Diet: Regular Addtl Attending Provider Instructions: -Continue Naltrexone 50mg for dextromethorphan, diphenhydramine cravings -Continue Fluoxetine (Prozac) 20mg daily, Abilify 20mg daily, Lamotrigine 50mg daily for bipolar depression -Ibuprofen 400mg twice daily for pain NEEDED -Vistaril (Hydroxyzine) 50mg twice daily for anxiety, sleep, diphenhydramine withdrawal NEEDED Pending Studies at Discharge: No Stand-Alone Forms: Meetapp, Smoking Cessation Medications and DC Order Prescriptions: New nicotine [Nicoderm CQ] 21 mg/24 hr Patch 24 Hour 1 patch transdermal QAM Qty: 30 0RF hydroxyzine HCl 25 mg Tablet 50 mg PO BID PRN (Reason: anxiety, sleep, histamine withdrawal) Qty: 30 0RF fluoxetine 20 mg Capsule 20 mg PO QAM Qty: 30 0RF lamotrigine [Lamictal] 25 mg Tablet 50 mg PO DAILY Qty: 60 0RF naltrexone 50 mg Tablet 50 mg PO DAILY Qty: 30 0RF cholecalciferol (vitamin D3) 50 mcg (2,000 unit) capsule 25 mcg PO QAM Qty: 30 0RF Continued Mirena 20 mcg/24 hours (5 yrs) 52 mg intrauterine device 20 mcg IU UNKNOWN trazodone 100 mg tablet 100 mg PO PM aripiprazole 20 mg tablet 20 mg PO DAILY Discontinued lamotrigine 200 mg tablet 200 mg PO DAILY Discharge Orders: Discharge Order (Routine); Ordered 08/28/24 Ordered By: Eduard Jameson Admission Data Admit Date/Time: 08/23/24 00:31 Attending Provider: Eduard Jameson Admit Provider: Teresa Beckford Primary Care Provider: Hernan Dominguez Other Interventions: Discharge Summary Assessment (RN) Last Done: 08/28/24 09:33 PSY Interdisciplinary Discharge Planning Last Done: 08/28/24 10:04 [place] [address] D/C day mgmt > 30 min Patient Type Established History Detailed Exam Detailed Medical Decision Making Moderate Complexity Diagnoses Bipolar depression F31.9 Cluster B personality disorder F60.89 Dextromethorphan use disorder, moderate F19.20 Other psychoactive substance dependence with withdrawal, uncomplicated F19.230 Hyperlipidemia E78.5
== END 2024-08-28 10:54 | disposition home or self-care (01) | DRG 885 ==
LOC: ED 20:03 → SUATTDRO 08-23 00:31 → 3S 08-23 00:31